=== PATIENT | male | born 1960 | race Caucasian/White ===

== ENCOUNTER 2016-09-13 14:34 | Outpatient (CLI) | payer OTHER ==
[~2016-09-13] VITALS: Ht 167.6 cm; Wt 74.1 kg
[~2016-09-13 14:34] MED LIST: DICY10CA60 PO; HYDR-902 PO; METF-388 PO; METO10TA96 PO; NAPR-260 PO; PANT40TA4 PO; POLY17PO6 PO
[2016-09-13 14:38] VITALS: BP 157/86; PULSE 73; RESP 16; Ht 167.6 cm; Wt 74.1 kg
--- NOTE | 2016-09-13 17:50 | CONS ---
[facility] INITIAL OUTPATIENT CONSULTATION NOTE DATE OF CONSULTATION: 09/13/2016 PLACE OF SERVICE: [facility] at [facility]. ASSESSMENT AND PLAN: A very pleasant, but unfortunate 55-year-old gentleman with comorbidities of diabetes, gastritis, and recent diagnosis of gastric bleeding, which led to the diagnosis of adenocarcinoma of the area of the lesser curvature of the stomach. This is in the setting of possible early cirrhosis. There is also concerning features for presence of metastatic disease in his liver and lung, although there is probably more reason for these being benign in the setting of gastric cancer. I had a long discussion with the patient and family and then had a discussion with Dr. Gonzales, who is the main oncologist for the patient. I do believe that the patient should be treated aggressively. We discussed the merits of doing a diagnostic laparoscopy prior to start of chemotherapy, but as a team, we decided on continuing on with planned FOLFOX treatment followed by restaging and potential for attempt at a subtotal gastrectomy, if the patient proves to have not had metastatic disease and he responds well to the treatment. I explained all the above minus the elimination of prechemotherapy diagnostic laparoscopy with the patient and family and answered all their questions to the best of my ability. I believe that they understand and agree with the plan. With above assessment, I recommend the followin. Continue with planned chemotherapy. 2. Post-chemotherapy staging and follow up with us for consideration for a subtotal gastrectomy, if the patient is still a candidate. Thank you again for allowing us to participate in the care of this very pleasant gentleman and his wonderful family. If there are any questions, please feel free to call me at [phone]. TOTAL VISIT TIME: 60 minutes of which more than half was spent in [id number] discussion with the patient, discussions with his family, as well as coordination of care between multiple physicians and providers. HISTORY OF PRESENT ILLNESS: The patient is a very pleasant 55-year-old gentleman with previous and current comorbidities including diabetes mellitus, previous alcohol abuse with complication of gastrointestinal bleeding and mild thrombocytopenia with platelets in the 180 range, who was recently evaluated and treated for upper gastric bleeding in June 2016. Endoscopy showed several ulcers in the distal stomach. Biopsies have unfortunately come back positive for adenocarcinoma. The patient's workup also included a CT scan of the abdomen and pelvis as well as the chest. There is evidence for small subcentimeter lesions throughout the liver and a few lesions up to 8 mm in both lungs. The etiology of these it is unclear and could be related to the patient' s chronic liver disease, but possibility of metastatic presence of gastric cancer has been entertained. The patient was kindly referred to us for surgical consultation. I had a chance to meet with the patient and family today and did a complete history and physical by myself. I also gathered my information with careful review of the data. The patient himself reports occasional abdominal pain, which is diffuse and band-like, but does not last long. He has not had any further gastrointestinal bleeding since June 2016. He reports no prior known issues with his liver or biliary system. Currently , he drinks occasionally, but in the past, he has had heavy periods of drinking including history of driving under the influence tickets x7 approximately 15 to 20 years ago. FAMILY HISTORY: No major medical history in the family other than throat cancer in his father who was a heavy smoker at that time. PAST MEDICAL HISTORY: 1. Diabetes. 2. Heavy alcohol abuse in the past. 3. Possible cirrhosis. 4. History of upper GI bleeding June 2016. 5. Anemia. 6. Arthritis. 7. Above-mentioned diagnosis of adenocarcinoma of the stomach. PAST SURGICAL HISTORY: Status post upper endoscopy on 06/21/2016 with finding of gastric ulcers that appeared as punched out areas of ulceration near the lesser curvature of the stomach approximately 2 cm in length and 1 cm in diameter. No varicose veins were identified. ALLERGIES: NAPROSYN. AMBULATORY MEDICATIONS: 1. Bentyl. 2. [place]. 3. Metformin. 4. Metoclopramide. 5. ____. 6. Pantoprazole. 7. MiraLax. SOCIAL HISTORY: The patient lives with his family. He has at least 1 daughter. He does not report any smoking and no intravenous drug use. He was a heavy drinker in the past, but has cut down significantly. FAMILY HISTORY: Throat cancer in the father. No other major medical, surgical , or malignant issues reported in the family. PHYSICAL EXAMINATION: GENERAL: The patient appears to be a very pleasant gentleman of descent, appearing stated age, sitting in a chair comfortably, and in no acute distress. BMI is 26.4. VITAL SIGNS: He is afebrile and he has slightly high blood pressure, 157/86, and the rest of his vital signs are normal. ABDOMEN: Shows no tenderness to palpation. Abdomen is soft and nondistended. There is no evidence of caput medusae or engorged subcutaneous veins and no evidence of organomegaly or ascites. No peritoneal signs or guarding. LABORATORY DATA: Dated June 2016: INR 0.91. Creatinine 0.82, albumin 3.8, CO2 of 30, bilirubin 0.3, AST 27, ALT 58, alkaline phosphatase 145. Platelet count 188. IMAGING: A CT scan from 06/29/2016 of the abdomen shows cirrhotic liver with signs of portal hypertension including mild splenomegaly and recanalization of the periumbilical vein. Scattered aortoiliac atherosclerotic calcifications were present. No mass, lymphadenopathy, or acute inflammatory processes was identified. Scattered colonic diverticula were seen without diverticulitis. Note that my personal review of the images suggest punctate areas in the liver that are subcentimeter and difficult to characterize, but concerning in the setting of known gastric malignancy. CT scan of the abdomen and pelvis, 09/12/2016, showed numerous subcentimeter low -density lesions of the liver too small to characterize and no appreciable gastric mass and no evidence of suspicious adenopathy. Chest CT, same date, showed indeterminate bilateral pulmonary nodules measuring up to 8 mm and no lymphadenopathy. My review of these images concur with the reported findings. Pathology report, 06/21/2016, showed adenocarcinoma, diffuse type with moderate chronic gastritis with ulcer, no Helicobacter pylori identified. Dictated By: JILLIAN JONES MD KK/NTS Conf#: [id number] DID#: [id number] CC: BONNY HASTINGS MD; TONEY GONZALES MD; HARVINDER GRAFF MD; Angela Aolnzo NP; Ravi Vazquez; DEIDRE REYNOLDS MD;*EndCC* [facility]
== END 2016-09-13 16:54 | disposition home or self-care (01) ==
LOC: HPC 14:34
PROVIDERS: ATTEND Transplant Surgery
DX: C16.9 Malignant neoplasm of stomach, unspecified (principal); E11.9 Type 2 diabetes mellitus without complications; K76.9 Liver disease, unspecified; Z86.59 Personal history of other mental and behavioral disorders
CPT/HCPCS: G0463

== ENCOUNTER 2017-02-07 08:57 | Outpatient (CLI) | payer OTHER ==
[~2017-02-07] VITALS: Ht 167.6 cm; Wt 68.2 kg
[~2017-02-07 08:57] MED LIST changes: -METF-388 PO; +METF1000 PO
[2017-02-07 09:02] VITALS: BP 180/105; PULSE 92; RESP 18; Ht 167.6 cm; Wt 68.2 kg
--- NOTE | 2017-02-07 12:34 | CONS ---
Date/Time of Note Date/Time of Note DATE: 02/07/17 TIME: 11:14 Assessment/Plan Assessment/Plan Additional Assessment/Plan [facility] SUBSEQUENT OUTPATIENT CONSULTATION NOTE DATE OF CONSULTATION: 02/07/2017 PLACE OF SERVICE: [facility]at[facility] and [facility]creas Center at [facility]. ASSESSMENT AND PLAN: A very pleasant, but unfortunate 56-year-old gentleman with comorbidities of diabetes, gastritis, likely early cirrhosis due to combination of ETOH, possible BILLS and potentially affected by systemic chemotherapy for neoadjuvant treatment of his lesser curvature gastric malignancy that was diagnosed late 2015. Work up (CT C/A/P 01/08/17 and abd MRI ) show no obvious metastatic process. His liver certainly complicates a rather complex clinical picture, since he will likely need total gastrectomy with esophagojejunostomy with pouch. I explained in detail my concerns and recommended completion of the w/u with EUS evaluation of his stomach, as well as MDTB presentation. Answered all questions and patient and his family appeared to understand and agreed with the plans. With above assessment, I recommend the followin. EUS evaluation of the stomach 2. Labs including tumor markers 3. Multidisciplinary tumor board presentation 4. Likely attempt at resection if remains a candidate Thank you again for allowing us to participate in the care of this very pleasant gentleman and his wonderful family. If there are any questions, please feel free to call me at [phone]. 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 Endoscopy showed several ulcers in the distal stomach (Dr. Han, , [facility]). Biopsies unfortunately showed adenocarcinoma (Her2 negative). The patient's workup also included a CT scan of the abdomen and pelvis as well as the chest (small subcentimeter lesions throughout the liver and a few lesions up to 8 mm in both lungs). Unclear etiology. No further gastrointestinal bleeding since June 2016. Drinks occasionally, but in the past, he has had heavy periods of drinking including history of driving under the influence tickets x7 approximately 15 to 20 years ago. S/p C8 FOLFOX 01/03/17 via port. Work up (CT C/A/P 01/08/17 and abd MRI 01/19/17) show no obvious metastatic process. Likely regenerative nodules in the liver reminiscent of cirrhosis. Small nodules in the lungs unchanged. Comorbidities: 1. Diabetes. 2. Heavy alcohol abuse in the past. 3. Possible cirrhosis. 4. History of upper GI bleeding June 2016. 5. Anemia. 6. Arthritis. 7. Above-mentioned diagnosis of adenocarcinoma of the stomach. 8. Status post upper endoscopy on 06/21/2016 with finding of gastric ulcers that appeared as punched out areas of ulceration near the lesser curvature of the stomach approximately 2 cm in length and 1 cm in diameter. No varicose veins were identified. 9. Throat cancer in his father who was a heavy smoker at that time HISTORY OF PRESENT ILLNESS: Repeat visit for follow up regarding gastric cancer management. No new complaints. Some issues with neuropathy, but minor. No sig change in weight. Appetite ok. Understandably anxious. FAMILY HISTORY: No major medical history in the family other than throat cancer in his father who was a heavy smoker at that time. ALLERGIES: NAPROSYN. AMBULATORY MEDICATIONS: Previously on 1. Bentyl. 2. [place]. 3. Metformin. 4. Metoclopramide. 5. Pantoprazole. 6. MiraLax. Please also see EHR SOCIAL HISTORY: The patient lives with his family. He has at least 1 daughter. He does not report any smoking and no intravenous drug use. He was a heavy drinker in the past, but has cut down significantly. FAMILY HISTORY: Throat cancer in the father. No other major medical, surgical , or malignant issues reported in the family. PHYSICAL EXAMINATION: GENERAL: The patient appears to be a very pleasant gentleman of descent, appearing stated age, sitting in a chair comfortably, and in no acute distress. BMI is 24.3 (previously 26.4). VITAL SIGNS: Reviewed. (see EHR) HEENT: Normocephalic and atraumatic. Extraocular muscles and hearing are grossly intact bilaterally and symmetrically. Sclerae are nonicteric. Oral cavity is clear; oral mucosa appeared to be pink and moist. Dentition: fair to poor. NECK: Supple. There is no lymphadenopathy or JVD. There is no submental, submandibular or supraclavicular lymphadenopathy. CHEST: Rises symmetrically with each breath; patient is breathing comfortably. There are no audible wheezes, rales or rhonchi on the gross exam. HEART: Pulse is regular and palpable on the right wrist. Capillary refill was normal. Carotid pulses are palpable bilaterally and symmetrically in the neck. EXTREMITIES: Lower extremities contain no pitting edema around the ankles bilaterally and symmetrically. ABDOMEN: Abdomen is soft, nontender and nondistended. There are no peritoneal signs or guarding. No evidence of ascites, organomegaly, caput medusae, engorged subcutaneous veins, or other abnormalities. SKIN: Appears to be pink and feels warm to touch. NEUROLOGIC: Awake, alert, and follows commands appropriately. LABORATORY DATA: Dated June 2016: INR 0.91. Creatinine 0.82, albumin 3.8, CO2 of 30, bilirubin 0.3, AST 27, ALT 58, alkaline phosphatase 145. Platelet count 188. IMAGING: A CT scan from 06/29/2016 of the abdomen shows cirrhotic liver with signs of portal hypertension including mild splenomegaly and recanalization of the periumbilical vein. Scattered aortoiliac atherosclerotic calcifications were present. No mass, lymphadenopathy, or acute inflammatory processes was identified. Scattered colonic diverticula were seen without diverticulitis. Note that my personal review of the images suggest punctate areas in the liver that are subcentimeter and difficult to characterize, but concerning in the setting of known gastric malignancy. CT scan of the abdomen and pelvis, 09/12/2016, showed numerous subcentimeter low -density lesions of the liver too small to characterize and no appreciable gastric mass and no evidence of suspicious adenopathy. Chest CT, same date, showed indeterminate bilateral pulmonary nodules measuring up to 8 mm and no lymphadenopathy. My review of these images concur with the reported findings. CT C/A/P 01/08/17 and abd MRI 01/19/17 show no obvious metastatic process. Pathology report, 06/21/2016, showed adenocarcinoma, diffuse type with moderate chronic gastritis with ulcer, no Helicobacter pylori identified. Her2 negative ( per oncology report) Consultation Date/Type/Reason Admit Date/Time Initial Consult Date Exam/Review of Systems Vital Signs Vitals Vital Signs Date Time Temp Pulse Resp B/P Pulse Ox O2 Delivery O2 Flow Rate FiO2 02/07/17 09:02 98.4 92 18 180/105 92 Room Air JILLIAN JONES M.D. Feb 07, 2017 11:34
== END 2017-02-07 16:54 | disposition home or self-care (01) ==
LOC: HPC 08:57
PROVIDERS: ATTEND Transplant Surgery
DX: Z08 Encounter for follow-up examination after completed treatment for malignant neoplasm (principal); K29.70 Gastritis, unspecified, without bleeding; E11.9 Type 2 diabetes mellitus without complications; Z79.84 Long term (current) use of oral hypoglycemic drugs; F10.10 Alcohol abuse, uncomplicated; Z85.028 Personal history of other malignant neoplasm of stomach; Z80.8 Family history of malignant neoplasm of other organs or systems
CPT/HCPCS: G0463

== ENCOUNTER 2017-05-02 13:09 | Outpatient (CLI) | payer OTHER ==
[~2017-05-02] VITALS: Ht 167.6 cm; Wt 70.5 kg
[~2017-05-02 13:09] MED LIST changes: -DICY10CA60 PO; -NAPR-260 PO
[2017-05-02 13:15] VITALS: BP 117/71; PULSE 98; RESP 18; Ht 167.6 cm; Wt 70.5 kg
--- NOTE | 2017-05-02 14:09 | CONS ---
Date/Time of Note Date/Time of Note DATE: 05/02/17 TIME: 14:03 Assessment/Plan Assessment/Plan Additional Assessment/Plan [facility] SUBSEQUENT OUTPATIENT CONSULTATION NOTE DATE OF CONSULTATION: 05/02/2017 PLACE OF SERVICE: Hepatobiliary and Pancreas Center at [facility]. ASSESSMENT AND PLAN: Overall stable and seems to have tolerated his neoadjuvant chemotherapy. We had a chance this morning to discuss patient's care in our multidisciplinary tumor board presentation and the consensus of the group was to go on with subtotal gastrectomy. Note that the surgeons and the group all agreed that a total gastrectomy would likely carry significant risk given the patient's liver issues and was not warranted at this time. I had a long discussion with the patient and family and described the reasoning behind my recommendations of a subtotal gastrectomy with review of the operation in detail , risks, benefits, and alternatives and answered all the patient's and family's questions to the best my ability. We specifically reviewed the potential for patient needing long-term surveillance with at least every 6 months to a year endoscopies and further testing since part of his stomach will remain. Overall , I believe that the patient will be able to tolerate this type of an operation and I obtained his consent to proceed. Previous assessment that applies today: A very pleasant, but unfortunate 56-year-old gentleman with comorbidities of diabetes, gastritis, likely early cirrhosis due to combination of ETOH, possible BILLS and potentially affected by systemic chemotherapy for neoadjuvant treatment of his lesser curvature gastric malignancy that was diagnosed late 2015. Work up (CT C/A/P 01/08/17 and abd MRI 01/19/17) show no obvious metastatic process. His liver certainly complicates a rather complex clinical picture, since he will likely need total gastrectomy with esophagojejunostomy with pouch. With above assessment, I recommend the followin. Preoperative history and physical 2. Schedule for laparoscopic, possible open, subtotal gastrectomy Thank you again for allowing us to participate in the care of this very pleasant gentleman and his wonderful family. If there are any questions, please feel free to call me at [phone]. 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 Endoscopy showed several ulcers in the distal stomach (Dr. Han, , [facility]). Biopsies unfortunately showed adenocarcinoma (Her2 negative). The patient's workup also included a CT scan of the abdomen and pelvis as well as the chest (small subcentimeter lesions throughout the liver and a few lesions up to 8 mm in both lungs). Unclear etiology. No further gastrointestinal bleeding since June 2016. Drinks occasionally, but in the past, he has had heavy periods of drinking including history of driving under the influence [email or web address] x7 approximately 15 to 20 years ago. S/p C8 FOLFOX 01/03/17 via port. Work up (CT C/A/P 01/08/17 and abd MRI 01/19/17) show no obvious metastatic process. Likely regenerative nodules in the liver reminiscent of cirrhosis. Small nodules in the lungs unchanged. EUS was performed by Dr. Sultana at [facility] on 02/26/2017 with finding of no residual tumor. Comorbidities: 1. Diabetes. 2. Heavy alcohol abuse in the past. 3. Possible cirrhosis. 4. History of upper GI bleeding June 2016. 5. Anemia. 6. Arthritis. 7. Above-mentioned diagnosis of adenocarcinoma of the stomach. 8. Status post upper endoscopy on 06/21/2016 with finding of gastric ulcers that appeared as punched out areas of ulceration near the lesser curvature of the stomach approximately 2 cm in length and 1 cm in diameter. No varicose veins were identified. 9. Throat cancer in his father who was a heavy smoker at that time 10. EUS was performed by Dr. Sultana at [facility] on 02/26/2017 with finding of no residual tumor. HISTORY OF PRESENT ILLNESS: Repeat visit for follow up regarding gastric cancer management. No new complaints. Some issues with neuropathy in both hands and feet, but minor. No sig change in weight (reported gaining some weight). Appetite ok. Understandably anxious. FAMILY HISTORY: No major medical history in the family other than throat cancer in his father who was a heavy smoker at that time. ALLERGIES: NAPROSYN. AMBULATORY MEDICATIONS: Carefully recorded and reviewed on the electronic health record system. Previously on 1. Bentyl. 2. [place]. 3. Metformin. 4. Metoclopramide. 5. Pantoprazole. 6. MiraLax. Please also see EHR SOCIAL HISTORY: The patient lives with his family. He has at least 1 daughter. He does not report any smoking and no intravenous drug use. He was a heavy drinker in the past, but has cut down significantly. FAMILY HISTORY: Throat cancer in the father. No other major medical, surgical , or malignant issues reported in the family. PHYSICAL EXAMINATION: GENERAL: The patient appears to be a very pleasant gentleman of descent, appearing stated age, sitting in a chair comfortably, and in no acute distress. BMI is 25.1 (previously 26.4 09/19 and 24.3 02/17). VITAL SIGNS: Reviewed. (see EHR) HEENT: Normocephalic and atraumatic. Extraocular muscles and hearing are grossly intact bilaterally and symmetrically. Sclerae are nonicteric. Oral cavity is clear; oral mucosa appeared to be pink and moist. Dentition: fair to poor. NECK: Supple. There is no lymphadenopathy or JVD. There is no submental, submandibular or supraclavicular lymphadenopathy. CHEST: Rises symmetrically with each breath; patient is breathing comfortably. There are no audible wheezes, rales or rhonchi on the gross exam. HEART: Pulse is regular and palpable on the right wrist. Capillary refill was normal. Carotid pulses are palpable bilaterally and symmetrically in the neck. EXTREMITIES: Lower extremities contain no pitting edema around the ankles bilaterally and symmetrically. ABDOMEN: Abdomen is soft, nontender and nondistended. There are no peritoneal signs or guarding. No evidence of ascites, organomegaly, caput medusae, engorged subcutaneous veins, or other abnormalities. SKIN: Appears to be pink and feels warm to touch. NEUROLOGIC: Awake, alert, and follows commands appropriately. LABORATORY DATA: Dated June 2016: INR 0.91. Creatinine 0.82, albumin 3.8, CO2 of 30, bilirubin 0.3, AST 27, ALT 58, alkaline phosphatase 145. Platelet count 188. IMAGING: A CT scan from 06/29/2016 of the abdomen shows cirrhotic liver with signs of portal hypertension including mild splenomegaly and recanalization of the periumbilical vein. Scattered aortoiliac atherosclerotic calcifications were present. No mass, lymphadenopathy, or acute inflammatory processes was identified. Scattered colonic diverticula were seen without diverticulitis. Note that my personal review of the images suggest punctate areas in the liver that are subcentimeter and difficult to characterize, but concerning in the setting of known gastric malignancy. CT scan of the abdomen and pelvis, 09/12/2016, showed numerous subcentimeter low -density lesions of the liver too small to characterize and no appreciable gastric mass and no evidence of suspicious adenopathy. Chest CT, same date, showed indeterminate bilateral pulmonary nodules measuring up to 8 mm and no lymphadenopathy. My review of these images concur with the reported findings. CT C/A/P 01/08/17 and abd MRI 01/19/17 show no obvious metastatic process. Pathology report, 06/21/2016, showed adenocarcinoma, diffuse type with moderate chronic gastritis with ulcer, no Helicobacter pylori identified. Her2 negative ( per oncology report) Consultation Date/Type/Reason Admit Date/Time Exam/Review of Systems Vital Signs Vitals Vital Signs Date Time Temp Pulse Resp B/P Pulse Ox O2 Delivery O2 Flow Rate FiO2 05/02/17 13:15 98.2 98 18 117/71 96 Room Air JILLIAN JONES M.D. May 02, 2017 14:09
== END 2017-05-02 17:00 | disposition home or self-care (01) ==
LOC: HPC 13:09
PROVIDERS: ATTEND Transplant Surgery
DX: C16.9 Malignant neoplasm of stomach, unspecified (principal); E11.9 Type 2 diabetes mellitus without complications; D64.9 Anemia, unspecified
CPT/HCPCS: G0463

== ENCOUNTER 2018-11-23 21:14 | Emergency (ER) | payer MEDICARE, OTHER ==
[~2018-11-23] VITALS: Ht 167.6 cm; Wt 71.5 kg
[~2018-11-23 21:14] MED LIST changes: +HYDR-3980 PO; -HYDR-902 PO; -METF1000 PO; +METF100010 PO; +METO10TA3 PO; -METO10TA96 PO
[2018-11-23 21:55] VITALS: Ht 167.6 cm; Wt 71.5 kg
[2018-11-23] MEDS ORDERED: ONDANSETRON 4 MG INJ IV STA (22:22)
[2018-11-23] MEDS ORDERED: HYDROmorphONE 1 MG/ML SYG IV STA (22:22)
[2018-11-23] MEDS ORDERED: SOD CHLORIDE 0.9% 1,000 ML IV STA (22:22)
--- NOTE | 2018-11-23 22:26 | ERD ---
ER Documentation Chief Complaint Chief Complaint AP 05/13 with conspitation X 8 days, Hx current intestinal CA HPI This is a 58-year-old male who says he has 8 days of constipation with nausea and vomiting if he eats too much over the past couple of weeks. He says he is has chronic abdominal swelling but it does seem to be a bit worse than usual. He says he has a history of intestinal cancer. No melena no gross bloody stools no blood in his vomit no fever ROS All systems reviewed and are negative except as per history of present illness. Medications Home Meds Active Scripts Polyethylene Glycol* (Miralax*) 17 Gm Powd.pack, 17 GM PO DAILY, #7 Prov:GLORY MURPHY DO 06/29/16 Reported Medications Metoclopramide Hcl* (Metoclopramide Hcl*) 10 Mg Tablet, 10 MG PO TID PRN for PRN, TAB 06/29/16 Pantoprazole* (Pantoprazole*) 40 Mg Tablet.dr, 40 MG PO DAILY, TAB 06/29/16 Metformin Hcl* (Metformin Hcl*) 1,000 Mg Tablet, 1000 MG PO WITH BREAKFAST DINNE, #60 TAB 06/29/16 Hydrocodone/Acetaminophen ([place] 10-325 Tablet) 1 Each Tablet, 1 EACH PO Q4 for PAIN PRN, TAB 06/29/16 Allergies Allergies: Coded Allergies: naproxen (Unverified Allergy, Mild, itchy, 06/29/16) PMhx/Soc History of Surgery: No Anesthesia Reaction: No Hx Neurological Disorder: No Hx Respiratory Disorders: No Hx Cardiac Disorders: No Hx Psychiatric Problems: No Hx Miscellaneous Medical Probl: No Hx Alcohol Use: Yes (quit 10 days ago) Hx Substance Use: No Hx Tobacco Use: No FmHx Family History: No coronary disease Physical Exam Vitals Vital Signs Date Temp Pulse Resp B/P (MAP) Pulse Ox O2 O2 Flow FiO2 Time Delivery Rate 11/24/18 82 14 127/86 100 Room Air 01:06 (100) 11/23/18 99.6 114 18 164/111 97 21:55 (128) Physical Exam Const: Well-developed, well-nourished Head: Atraumatic, normocephalic Eyes: Normal Conjunctiva, PERRLA, EOMI, normal sclera, no nystagmus ENT: Normal External Ears, Nose and Mouth, moist mucus membranes. Neck: Full range of motion. No meningismus, no lymphadenopathy. Resp: Clear to auscultation bilaterally, no wheezing, rhonchi, rales Cardio: Regular rate and rhythm, no murmurs, S1 S2 present Abd: Soft, distended with mild diffuse tenderness. Normal bowel sounds, no guarding or rebound, no pulsitile abdominal masses or bruits Skin: No petechiae or rashes, no ecchymosis , no maculopapular rash Back: No midline or flank tenderness Ext: No cyanosis, or edema, FROM x 4, normal inspection, neurovascularly intact x 4 Neur: Awake and alert, STR 5/5 x 4, sensation intact x 4, no focal findings, cerebellum intact Psych: Normal Mood and Affect Result Diagram: 11/23/18225111/23/182250 Results 24 hrs Laboratory Tests Test 11/23/18 22:51 11/23/18 22:52 Sodium Level 144 mmol/L Potassium Level 3.7 mmol/L Chloride Level 105 mmol/L Carbon Dioxide Level 27 mmol/L Anion Gap 12 Blood Urea Nitrogen 13 mg/dl Creatinine 0.69 mg/dl Est Glomerular Filtrat Rate mL/min > 60 mL/min Glucose Level 148 mg/dl Calcium Level 8.8 mg/dl Total Bilirubin 0.4 mg/dl Direct Bilirubin 0.00 mg/dl Indirect Bilirubin 0.4 mg/dl Aspartate Amino Transf (AST/SGOT) 22 IU/L Alanine Aminotransferase (ALT/SGPT) 15 IU/L Alkaline Phosphatase 94 IU/L Total Protein 7.6 g/dl Albumin 3.5 g/dl Globulin 4.10 g/dl Albumin/Globulin Ratio 0.85 Lipase 45 U/L White Blood Count 6.1 10^3/ul Red Blood Count 5.04 10^6/ul Hemoglobin 13.6 g/dl Hematocrit 41.5 % Mean Corpuscular Volume 82.3 fl Mean Corpuscular Hemoglobin 27.0 pg Mean Corpuscular Hemoglobin Concent 32.8 g/dl Red Cell Distribution Width 12.8 % Platelet Count 126 10^3/UL Mean Platelet Volume 9.9 fl Immature Granulocytes % 0.200 % Neutrophils % 65.9 % Lymphocytes % 22.2 % Monocytes % 10.2 % Eosinophils % 1.2 % Basophils % 0.3 % Nucleated Red Blood Cells % 0.0 /100WBC Immature Granulocytes # 0.010 10^3/ul Neutrophils # 4.0 10^3/ul Lymphocytes # 1.4 10^3/ul Monocytes # 0.6 10^3/ul Eosinophils # 0.1 10^3/ul Basophils # 0.0 10^3/ul Nucleated Red Blood Cells # 0.0 10^3/ul Current Medications Medications Dose Sig/Dago Start Time Status Last (Trade) Ordered Route PRN Stop Time Admin Dose Reason Admin Sodium 1,000 ml @ Q1H STAT 11/23/18 DC 11/23/18 Chloride 1,000 mls/hr IV 22:22 23:09 11/23/18 23:21 1 mg ONCE STAT 11/23/18 DC 11/23/18 Hydromorphone IV 22:22 23:09 HCl 11/23/18 22:23 (Dilaudid) Ondansetron 4 mg ONCE STAT 11/23/18 DC 11/23/18 HCl (Zofran IV 22:22 23:09 Inj) 11/23/18 22:23 Heparin 500 unit ONCE ONCE 11/23/18 DC Sodium CATHETER 23:00 (Porcine) 11/23/18 23:01 (Heparin Flush (100 Units/ml)) IV Flush 10 ml STK-MED 11/23/18 DC (NS 10 ml) ONCE .ROUTE 23:22 11/23/18 23:23 Sodium 100 ml @ ud STK-MED 11/23/18 DC Chloride ONCE .ROUTE 23:22 11/23/18 23:23 Iohexol 150 ml STK-MED 11/23/18 DC (Omnipaque ONCE .ROUTE 23:22 300mg/ ml) 11/23/18 23:23 Procedures/MDM Ordering MD: NORBERTO MANUEL DO Location: E/R Room/Bed: PROCEDURE: CT Abdomen and Pelvis with contrast. CLINICAL INDICATION: Abdominal pain. TECHNIQUE: CT scan of the abdomen and pelvis with contrast was performed on a multi-detector high-resolution CT scanner. The patient was scanned following the uncomplicated intravenous administration of 100 cc of Omnipaque 300. Coronal and sagittal reformatted images were obtained from the axial source images. Images were reviewed on a high-resolution PACS workstation. The total exam CTDI equals 14 mGy and the total exam DLP equals 826 mGy-cm. DICOM images are available. 3-D reconstructions were notperformed. One or more of the following dose reduction techniques were utilized: 1.) Automated exposure control 2.) Adjustment of the mA +/- kV according to patient's size 3.) Use of iterative reconstruction technique. COMPARISON: 01/08/2017 FINDINGS: CT abdomen: Heart (where visible): Mildly enlarged. Lung bases: Small left pleural effusion. Small amount of left lower lobe atelectasis.. Liver: Surface nodularity. No visible focal mass. Large volume ascites Biliary ductal system: No evidence of significant dilatation. Gallbladder: No wall thickening, visible intraluminal stone, or pericholecystic inflammatory change. Pancreas: Unremarkable Stomach: No identifiable focal mass or gross wall thickening. Spleen: Splenomegaly. Abdominal colon: Normal in caliber and course. Abdominal small bowel: Normal in caliber, course, and mucosal pattern. Adrenal glands: No visible masses. Right Kidney: Normal in size and contour without focal mass or collecting system dilatation. Left kidney: Normal in size and contour without focal mass or collecting system dilatation. Abdominal aorta: Normal caliber. Lymph nodes: No significantly enlarged nodes. CT pelvis: Pelvic colon: Normal in caliber and course. Mild diverticulosis. No evidence of inflammatory change. Pelvic small bowel: Normal in caliber and course. Appendix: Identified. No evidence of inflammation. Urinary bladder: Normal in size and contour without visible wall thickening. Reproductive structures: Unremarkable. Bony structures included in the scan: No clinically significant abnormalities. IMPRESSION: 1. Hepatic cirrhosis and large volume ascites, both essentially new since the prior study. 2. Chronic splenomegaly. 3. Small left pleural effusion and left lower lobe atelectasis. 4. Otherwise unremarkable CT of the abdomen and pelvis with no evidence of bowel obstruction, bowel perforation, urinary tract stone, urinary tract obstruc tion, or focal inflammatory process. . RPTAT:AAJJ Physician Rod Date Time Electronically viewed and signed by Physician Rod on 11/24/2018 01:25 GW/ CC: NORBERTO MANUEL DO [id number] The patient has new onset ascites. The patient was told that he should come back in the morning to undergo a therapeutic paracentesis. Blood work is relatively stable. Will discharge home with follow-up with his primary for his liver cirrhosis/ascites Departure Diagnosis: Primary Impression: Ascites Ascites type: other type Qualified Codes: R18.8 - Other ascites Additional Impressions: Cirrhosis Hepatic cirrhosis type: unspecified hepatic cirrhosis Ascites presence: with ascites Qualified Codes: K74.60 - Unspecified cirrhosis of liver; R18.8 - Other ascites Constipation Constipation type: unspecified constipation type Qualified Codes: K59.00 - Constipation, unspecified Condition: Stable NORBERTO MANUEL DO Nov 23, 2018 22:26
[2018-11-23] MEDS ORDERED: HEPARIN (100 UNITS/ML) 5 ML SYG CATHETER ONE (23:00)
[2018-11-23] MEDS ORDERED: SOD CHLORIDE 0.9% 100 ML ONE (23:22)
[2018-11-23] MEDS ORDERED: IOHEXOL 300MG/ML 150 ML BTL ONE (23:22)
[2018-11-24] MEDS ORDERED: POLY17PO6 PO (01:49)
[2018-11-24 02:09] VITALS: BP 130/81; PULSE 85; RESP 19
[2018-11-24] MEDS ORDERED: HYDR-4011 PO (02:13)
== END 2018-11-24 02:18 | disposition home or self-care (01) ==
LOC: E/R 21:14
DX: K74.60 Unspecified cirrhosis of liver (principal); R18.8 Other ascites; C00-D49 Neoplasms; Z79.84 Long term (current) use of oral hypoglycemic drugs
CPT/HCPCS: 36415; 74177; 80053; 83690; 85025; 96374; 96375; 99285; J1170; J1642; J2405; J7030; Q9967

== ENCOUNTER 2018-11-24 08:53 | Inpatient (IN) | payer MEDICARE, OTHER ==
[~2018-11-24] VITALS: Ht 167.6 cm; Wt 71.4 kg
[~2018-11-24 08:53] MED LIST changes: +HYDR-4011 PO
--- NOTE | 2018-11-24 10:04 | ERD ---
ER Documentation Chief Complaint Chief Complaint sent here for paracenthesis. unable to do yesterday. mild swelling HPI 58-year-old male history of gastric CA, diabetes mellitus type 2, anemia, alcoholic liver cirrhosis and portal hypertension presents the ED complaining of a several week history of increasing abdominal distention, constipation and nausea with early satiety. Denies hematemesis, hematochezia or melena. No isidoro st pain, palpitations or shortness of breath. No fevers or chills. Patient has been treated with chemotherapy but recently has not been able to obtain follow- up. ROS All systems reviewed and are negative except as per history of present illness. Medications Home Meds Discontinued Reported Medications Metoclopramide Hcl* (Metoclopramide Hcl*) 10 Mg Tablet, 10 MG PO TID PRN for PRN, TAB 06/29/16 Pantoprazole* (Pantoprazole*) 40 Mg Tablet.dr, 40 MG PO DAILY, TAB 06/29/16 Metformin Hcl* (Metformin Hcl*) 1,000 Mg Tablet, 1000 MG PO WITH BREAKFAST DINNE, #60 TAB 06/29/16 Hydrocodone/Acetaminophen ([place] 10-325 Tablet) 1 Each Tablet, 1 EACH PO Q4 for PAIN PRN, TAB 06/29/16 Discontinued Scripts Hydrocodone/Acetaminophen ([place] 5-325 Tablet) 1 Each Tablet, 1 TAB PO Q6H PRN for PAIN, #15 TAB Prov:LEKKOS,APOSTOLOS A. DO 11/24/18 Polyethylene Glycol* (Miralax*) 17 Gm Powd.pack, 17 GM PO DAILY, #7 Prov:LEKKOS,APOSTOLOS A. DO 11/24/18 Polyethylene Glycol* (Miralax*) 17 Gm Powd.pack, 17 GM PO DAILY, #7 Prov:GLORY MURPHY DO 06/29/16 Allergies Allergies: Coded Allergies: naproxen (Unverified Allergy, Mild, itchy, 11/24/18) PMhx/Soc Reviewed in chart. As per HPI. History of Surgery: No Anesthesia Reaction: No Hx Neurological Disorder: No Hx Respiratory Disorders: No Hx Cardiac Disorders: No Hx Psychiatric Problems: No Hx Miscellaneous Medical Probl: Yes (DM, STOMACH CA ) Hx Alcohol Use: Yes Hx Substance Use: No Hx Tobacco Use: No Smoking Status: Never smoker FmHx No family history relevant to presenting complaint Physical Exam Vitals Vital Signs Date Temp Pulse Resp B/P (MAP) Pulse Ox O2 O2 Flow FiO2 Time Delivery Rate 11/24/18 98.4 112 18 150/84 98 08:59 (106) Physical Exam Const: Alert, mild distress. Head: Atraumatic Eyes: Normal Conjunctiva. Anicteric. ENT: Normal External Ears, Nose and Mouth. Neck: Full range of motion. No JVD. Resp: Decreased breath sounds at the bases left greater than right but no rales, rhonchi or wheezes. Cardio: Regular rate and rhythm, no murmurs Abd: Soft, distended, positive fluid wave, non tender, no rebound or guarding. Normal bowel sounds Skin: No petechiae or rashes Back: No midline or flank tenderness Ext: No cyanosis, or edema Neur: Awake and alert. No focal deficit. Psych: Normal Mood and Affect Result Diagram: 11/27/1842311/27/18423 Procedures/MDM DOCUMENTS REVIEWED: ED nurse, prior records IMAGING: PROCEDURE: CT Abdomen and Pelvis with contrast. CLINICAL INDICATION: Abdominal pain. TECHNIQUE: CT scan of the abdomen and pelvis with contrast was performed on a multi-detector high-resolution CT scanner. The patient was scanned following the uncomplicated intravenous administration of 100 cc of Omnipaque 300. Coronal and sagittal reformatted images were obtained from the axial source images. Images were reviewed on a high-resolution PACS workstation. The total exam CTDI equals 14 mGy and the total exam DLP equals 826 mGy-cm. DICOM images are available. 3-D reconstructions were notperformed. One or more of the following dose reduction techniques were utilized: 1.) Automated exposure control 2.) Adjustment of the mA +/- kV according to patient's size 3.) Use of iterative reconstruction technique. COMPARISON: 01/08/2017 FINDINGS: CT abdomen: Heart (where visible): Mildly enlarged. Lung bases: Small left pleural effusion. Small amount of left lower lobe atelectasis.. Liver: Surface nodularity. No visible focal mass. Large volume ascites Biliary ductal system: No evidence of significant dilatation. Gallbladder: No wall thickening, visible intraluminal stone, or pericholecystic inflammatory change. Pancreas: Unremarkable Stomach: No identifiable focal mass or gross wall thickening. Spleen: Splenomegaly. Abdominal colon: Normal in caliber and course. Abdominal small bowel: Normal in caliber, course, and mucosal pattern. Adrenal glands: No visible masses. Right Kidney: Normal in size and contour without focal mass or collecting system dilatation. Left kidney: Normal in size and contour without focal mass or collecting system dilatation. Abdominal aorta: Normal caliber. Lymph nodes: No significantly enlarged nodes. CT pelvis: Pelvic colon: Normal in caliber and course. Mild diverticulosis. No evidence of inflammatory change. Pelvic small bowel: Normal in caliber and course. Appendix: Identified. No evidence of inflammation. Urinary bladder: Normal in size and contour without visible wall thickening. Reproductive structures: Unremarkable. Bony structures included in the scan: No clinically significant abnormalities. IMPRESSION: 1. Hepatic cirrhosis and large volume ascites, both essentially new since the prior study. 2. Chronic splenomegaly. 3. Small left pleural effusion and left lower lobe atelectasis. 4. Otherwise unremarkable CT of the abdomen and pelvis with no evidence of melody l obstruction, bowel perforation, urinary tract stone, urinary tract obstruction, or focal inflammatory process. . RPTAT:AAJJ Physician Rod Date Time Electronically viewed and signed by Physician Rod on 11/24/2018 01:25 [employer]-year-old male history of gastric CA, diabetes m ellitus type 2, anemia, alcoholic liver cirrhosis and portal hypertension presents the ED complaining of a several week history of increasing abdominal distention, constipation and nausea with early satiety. Patient was seen in the ED earlier this morning borderline and now returns for paracentesis. Labs reviewed. CBC revealed mild anemia but no leukocytosis or thrombocytopenia. Chemistry was unremarkable for renal insufficiency or electrolyte abnormalities. Liver function tests were grossly normal. INR was normal. CT findings as above consistent with new onset ascites and liver cirrhosis but no other acute abnormalities. Ultrasound paracentesis is ordered. Patient with a history of gastric adenocarcinoma now presents with new onset ascites possibly secondary to cirrhosis although malignant ascites and SBP are also considered. Patient will require admission for GI consultation, further evaluation and management. Admit to med/surg. PATIENT CARE TRANSITIONED: Time: 10:53, Dr. Beth Pool. Counseled patient and family regarding diagnosis, diagnostic results and plan for admission. Departure Diagnosis: Primary Impression: Ascites Ascites type: other type Qualified Codes: R18.8 - Other ascites Additional Impressions: History of gastric cancer Liver cirrhosis Hepatic cirrhosis type: unspecified hepatic cirrhosis Ascites presence: unspecified Qualified Codes: K74.60 - Unspecified cirrhosis of liver Condition: Serious GERTRUDIS RENEE MD Nov 24, 2018 10:04
--- NOTE | 2018-11-24 12:59 | HP ---
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 1. Large volume ascites. -Etiology could be secondary to underlying hepatic cirrhosis. -No prior history of paracentesis. -Ultrasound-guided paracentesis will be ordered. 2. Constipation. -Start a bowel regimen. 3. Diabetes mellitus type 2. -Start the patient on sliding scale insulin. -Hemoglobin A1c 7.1. 4. Normocytic anemia. -Most probably anemia chronic disease. -Monitor H&H closely. 5. Thrombocytopenia. -Most probably secondary to underlying liver cirrhosis. -Monitor. 6. History of adenocarcinoma of the stomach. -Status post chemotherapy. -Follows up with Dr. Barbosa as outpatient. Plan: The patient will be admitted to inpatient medical surgical floor. The patient will be kept n.p.o. until paracentesis. The patient will be started on DVT prophylaxis ((SCDs). The patient will remain a full code. Activities will be as tolerated. The rest of the patient's management will be based on the clinical course and the results of diagnostic studies. Based on the patient's clinical presentation, he most probably requires at least 1 midnight's stay for further management and evaluation of his clinical presentation. The patient was seen in collaboration with Dr. Pool. 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 Barbosa. The patient came to the emergency room on 11/23/2018 because of abdominal distention, abdominal pain, and constipation. The patient underwent a CT scan of the abdomen and pelvis that showed hepatic cirrhosis and a large volume ascites with a small left pleural effusion and left lower lobe atelectasis. The patient was discharged home, to be followed up with outpatient paper pattern inspector. However, the patient came back to the emergency room on 11/24/2018 with similar complaints. Therefore, the patient will be admitted to inpatient setting. The patient denied any fevers or chills. The patient was complaining of poor oral intake and associated nausea and nonbilious vomiting. The patient verbalized that he had completed his chemotherapy for adenocarcinoma. There was no surgical interventions done for his adenocarcinoma. The patient currently takes analgesics for his abdominal pain. In the emergency room, the patient is vital signs were stable. The patient was afebrile. The patient's CBC was showing anemia and thrombocytopenia. The patient's LFTs were within normal limits. Ultrasound-guided paracentesis was ordered by the ER physician. ROS Constitutional: poor po Eyes: no complaints ENT: no complaints Respiratory: no complaints Cardiovascular: no complaints Gastrointestinal: pain, constipation, decreased appetite, nausea, vomiting Genitourinary: dysuria Musculoskeletal: no complaints Skin: no complaints Neurologic: no complaints Endocrine: no complaints Lymphatic: no complaints Psychological: no complaints Immunologic: no complaints PMH/Family/Social Past Medical History 1. Diabetes mellitus type 2. 2. Anemia. 3. Liver cirrhosis. 4. 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 Coded Allergies: naproxen (Unverified Allergy, Mild, itchy, 11/24/18) Past Surgical History Right chest wall Port-A-Cath placement. Social History The patient lives at home with his family. Alcohol Use: sober Smoking Status: Never smoker Drug Use: none Exam/Review of Systems Vital Signs Vitals Vital Signs Date Temp Pulse Resp B/P (MAP) Pulse Ox O2 O2 Flow FiO2 Time Delivery Rate 11/24/18 98.4 112 18 150/84 98 08:59 (106) Exam Exam General: Adequately build 58 year-old male lying in bed in no apparent distress. HEENT: Normocephalic, atraumatic. Eyes: Anicteric sclerae, conjunctivae clear. ENT: Nasal septum midline, oral mucosa moist. Neck supple, JVD noticed. Respiratory: Bilaterally clear breath sounds. No use of accessory muscles of respiration. No adventitious breath sounds. Cardiovascular: S1, S2 heard. Regular rate and rhythm. Abdomen: Distended and nontender. Genitourinary: Deferred. Extremities: No cyanosis, no clubbing, no edema. Peripheral pulses palpable. Neurologic: Cranial nerves II through XII grossly intact. The patient is awake, alert, and oriented. Skin: Normal skin turgor. No skin rashes. Additional Comments CT Abdomen & Pelvis from 11/23/2018 IMPRESSION: 1. Hepatic cirrhosis and large volume ascites, both essentially new since the prior study. 2. Chronic splenomegaly. 3. Small left pleural effusion and left lower lobe atelectasis. 4. Otherwise unremarkable CT of the abdomen and pelvis with no evidence of bowel obstruction, bowel perforation, urinary tract stone, urinary tract obstruction, or focal inflammatory proc BRAYAN GUERRERO NP Nov 24, 2018 12:59
[2018-11-24] MEDS ORDERED: hydrALAzine 20 MG INJ IV PRN (13:30)
[2018-11-24] MEDS ORDERED: DEXTROSE 50% 50 ML SYRINGE IV PRN ×2 (13:30)
[2018-11-24] MEDS ORDERED: NACL 0.9% 3 ML SYG IV SCH (13:30)
[2018-11-24] MEDS ORDERED: GLUCOSE GEL 15 GRAM TUBE BUCCAL PRN (13:30)
[2018-11-24] MEDS ORDERED: GLUCOSE GEL 15 GRAM TUBE PO PRN ×2 (13:30)
[2018-11-24] MEDS ORDERED: ONDANSETRON 4 MG INJ IV PRN (13:30)
[2018-11-24] MEDS ORDERED: ACETAMINOPHEN 325 MG TAB PO PRN (13:30)
[2018-11-24] MEDS ORDERED: GLUCAGON 1 MG INJ IM PRN (13:30)
[2018-11-24 14:12] VITALS: BP 148/97; PULSE 86; RESP 16
[2018-11-24 14:15] VITALS: Ht 167.6 cm; Wt 71.4 kg
[2018-11-24] MEDS: HYDROCODONE/APAP (5/325) TAB PO PRN (14:25)
[2018-11-24] MEDS ORDERED: LIDOCAINE 1% (MPF) 5 ML VIAL ONE (17:25)
[2018-11-24] MEDS: INSULIN ASPART [NOVOLOG] 3 ML PEN SC SCH ×2 (17:55→21:00)
[2018-11-24] MEDS: METOCLOPRAMIDE 10 MG INJ IV SCH ×2 (18:17→23:33)
[2018-11-24 20:11] VITALS: BP 123/77; PULSE 87; RESP 18
[2018-11-24] MEDS: LACTULOSE 30ML CUP PO SCH (21:12)
[2018-11-24] MEDS: POLYETHYLENE GLYCOL 17 GM PACKET PO SCH (21:12)
[2018-11-25 01:44] VITALS: BP 130/78; PULSE 88; RESP 18
[2018-11-25] MEDS: LACTULOSE 30ML CUP PO SCH ×3 (05:41→22:25)
[2018-11-25] MEDS: METOCLOPRAMIDE 10 MG INJ IV SCH ×4 (05:41→23:53)
[2018-11-25 07:34] VITALS: BP 121/78; PULSE 92; RESP 19
[2018-11-25] MEDS: INSULIN ASPART [NOVOLOG] 3 ML PEN SC SCH ×4 (08:50→20:50)
[2018-11-25] MEDS: POLYETHYLENE GLYCOL 17 GM PACKET PO SCH ×2 (08:51→20:51)
[2018-11-25] MEDS: HYDROCODONE/APAP (5/325) TAB PO PRN (11:10)
--- NOTE | 2018-11-25 13:44 | PN ---
Date/Time of Note Date/Time of Note DATE: 11/25/18 TIME: 13:38 Assessment/Plan VTE Prophylaxis Risk score (from [facility] [place])>0 risk: 3 SCD applied (from [facility] [place]): Yes SCD contraindicated: low risk/ambulating Pharmacological prophylaxis: NA/contraindicated Pharm contraindication: blood coag disorder Lines/Catheters IV Catheter Type (from [facility] Saline Lock Urinary Cath still in place: No Assessment/Plan Hospital Course Assessment and plan 1. Decompensated cirrhosis, mod stable, follow-up with GI 2. Ascites sp paracentesis. Follow-up with culture/ cytology, start beta- saurav on discharge 3. Past alcoholism 4. Anemia 5. History of upper GI bleed/ ulcers. Dr Hna 6. Diabetes 7. Metabolic syndrome 8. Constipation 9. 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 Dr Barbosa 10. Pulmonary/hepatic nodules subcentimeter, Unclear etiology. 11. Possible [place] 12. Chronic liver disease [place]: Portal hypertension/thrombocytopenia Subjective: Events noted; no fever Objective: Vital signs stable no fever Physical exam No pallor icterus adenopathy Regular no m/r/g Clear Bs diminished, nt, mild distended no r/r/g edema Result Diagram: 11/25/18 0426 11/25/18 0426 Results 24hrs Laboratory Tests Test 11/24/18 16:30 11/24/18 18:13 11/24/18 21:05 11/24/18 21:11 Body Fluid Type PARACENTHESIS Body Fluid Volume 1000.0 Body Fluid Color YELLOW Body Fluid HAZY Appearance Body Fluid WBC 813 Body Fluid RBC 1000 (Auto) Body Fluid 3.3 Polynuclear WBCs (%) Body Fluid 96.7 Mononuclear Cells % Auto Body Fluid Glucose 112 Body Fluid Total 4.4 Protein Total Protein Albumin Bedside Glucose 105 132 Urine Color BUNNY Urine Clarity TURBID A Urine pH 5.0 Urine Specific 1.038 H [place] Urine Ketones 1+ H Urine Nitrite NEGATIVE Urine Bilirubin NEGATIVE Urine Urobilinogen 1+ H Urine Leukocyte NEGATIVE Esterase Urine Microscopic 0 RBC Urine Microscopic 4 WBC Urine Amorphous MANY A Crystals Urine Mucus FEW A Urine Hemoglobin NEGATIVE Urine Glucose NEGATIVE Urine Total NEGATIVE Protein Test 11/25/18 04:26 11/25/18 08:50 11/25/18 12:08 White Blood Count 5.3 Red Blood Count 4.78 Hemoglobin 13.0 L Hematocrit 39.8 L Mean Corpuscular 83.3 Volume Mean Corpuscular 27.2 L Hemoglobin Mean Corpuscular 32.7 Hemoglobin Concent Red Cell 12.5 Distribution Width Platelet Count 104 L Mean Platelet 10.6 H Volume Immature 0.200 Granulocytes % Neutrophils % 67.5 Lymphocytes % 21.1 Monocytes % 9.7 Eosinophils % 1.3 Basophils % 0.2 Nucleated Red 0.0 Blood Cells % Immature 0.010 Granulocytes # Neutrophils # 3.6 Lymphocytes # 1.1 Monocytes # 0.5 Eosinophils # 0.1 Basophils # 0.0 Nucleated Red 0.0 Blood Cells # Prothrombin Time 14.9 Prothrombin Time 1.2 Ratio INR International 1.16 Normalized Ratio Activated 31.[address] Time Sodium Level 144 Potassium Level 4.1 Chloride Level 105 Carbon Dioxide 29 Level Anion Gap 10 Blood Urea 12 Nitrogen Creatinine 0.66 Est Glomerular > 60 Filtrat Rate mL/min Glucose Level 109 Calcium Level 8.4 Phosphorus Level 3.8 Magnesium Level 2.1 Total Bilirubin 0.5 Direct Bilirubin 0.00 Indirect Bilirubin 0.5 Aspartate Amino 20 Transf (AST/SGOT) Alanine 16 Aminotransferase ( ALT/SGPT) Alkaline 72 Phosphatase Ammonia < 9 L Total Protein 6.6 Albumin 3.0 L Globulin 3.60 H Albumin/Globulin 0.83 Ratio Triglycerides 97 Level Cholesterol Level 105 LDL Cholesterol, 64 Calculated HDL Cholesterol 22 L Cholesterol/HDL 4.7 Ratio Bedside Glucose 116 140 Exam/Review of Systems Exam Vitals Vital Signs Date Temp Pulse Resp B/P (MAP) Pulse Ox O2 O2 Flow FiO2 Time Delivery Rate 11/25/18 97.2 92 19 121/78 96 07:34 (92) 11/24/18 Room Air 14:16 Intake and Output 11/24/18 11/24/18 11/25/18 1515:00 23:00 07:00 IntakeIntake Total 300 ml OutputOutput Total 1 ml BalanceBalance 299 ml Results Results 24hrs Laboratory Tests Test 11/24/18 16:30 11/24/18 18:13 11/24/18 21:05 11/24/18 21:11 Body Fluid Type PARACENTHESIS Body Fluid Volume 1000.0 Body Fluid Color YELLOW Body Fluid HAZY Appearance Body Fluid WBC 813 Body Fluid RBC 1000 (Auto) Body Fluid 3.3 Polynuclear WBCs (%) Body Fluid 96.7 Mononuclear Cells % Auto Body Fluid Glucose 112 Body Fluid Total 4.4 Protein Total Protein Albumin Bedside Glucose 105 132 Urine Color BUNNY Urine Clarity TURBID A Urine pH 5.0 Urine Specific 1.038 H [place] Urine Ketones 1+ H Urine Nitrite NEGATIVE Urine Bilirubin NEGATIVE Urine Urobilinogen 1+ H Urine Leukocyte NEGATIVE Esterase Urine Microscopic 0 RBC Urine Microscopic 4 WBC Urine Amorphous MANY A Crystals Urine Mucus FEW A Urine Hemoglobin NEGATIVE Urine Glucose NEGATIVE Urine Total NEGATIVE Protein Test 11/25/18 04:26 11/25/18 08:50 11/25/18 12:08 White Blood Count 5.3 Red Blood Count 4.78 Hemoglobin 13.0 L Hematocrit 39.8 L Mean Corpuscular 83.3 Volume Mean Corpuscular 27.2 L Hemoglobin Mean Corpuscular 32.7 Hemoglobin Concent Red Cell 12.5 Distribution Width Platelet Count 104 L Mean Platelet 10.6 H Volume Immature 0.200 Granulocytes % Neutrophils % 67.5 Lymphocytes % 21.1 Monocytes % 9.7 Eosinophils % 1.3 Basophils % 0.2 Nucleated Red 0.0 Blood Cells % Immature 0.010 Granulocytes # Neutrophils # 3.6 Lymphocytes # 1.1 Monocytes # 0.5 Eosinophils # 0.1 Basophils # 0.0 Nucleated Red 0.0 Blood Cells # Prothrombin Time 14.9 Prothrombin Time 1.2 Ratio INR International 1.16 Normalized Ratio Activated 31.[address] Time Sodium Level 144 Potassium Level 4.1 Chloride Level 105 Carbon Dioxide 29 Level Anion Gap 10 Blood Urea 12 Nitrogen Creatinine 0.66 Est Glomerular > 60 Filtrat Rate mL/min Glucose Level 109 Calcium Level 8.4 Phosphorus Level 3.8 Magnesium Level 2.1 Total Bilirubin 0.5 Direct Bilirubin 0.00 Indirect Bilirubin 0.5 Aspartate Amino 20 Transf (AST/SGOT) Alanine 16 Aminotransferase ( ALT/SGPT) Alkaline 72 Phosphatase Ammonia < 9 L Total Protein 6.6 Albumin 3.0 L Globulin 3.60 H Albumin/Globulin 0.83 Ratio Triglycerides 97 Level Cholesterol Level 105 LDL Cholesterol, 64 Calculated HDL Cholesterol 22 L Cholesterol/HDL 4.7 Ratio Bedside Glucose 116 140 Medications Medication Current Medications Polyethylene Glycol (Miralax) 17 gm BID PO Last administered on 11/25/18at 08:51; Admin Dose 17 GM; Start 11/24/18 at 21:00 IV Flush (NS 3 ml) 3 ml PER PROTOCOL IV ; Start 11/24/18 at 13:30 Ondansetron HCl (Zofran Inj) 4 mg Q6H PRN IV NAUSEA/VOMITING; Start 11/24/18 at 13:30 Acetaminophen/ Hydrocodone Bitart ([place] (5/325)) 1 tab Q6H PRN PO .MOD PAIN 4- 6 Last administered on 11/25/18at 11:10; Admin Dose 1 TAB; Start 11/24/18 at 13:30 Hydralazine HCl (Apresoline) 10 mg Q6H PRN IV SBP>160; Start 11/24/18 at 13:30 Insulin Aspart (Novolog Insulin Pen) NOVOLOG *MILD* ALGORITHM WITH MEALS BEDTIME SC ; Start 11/24/18 at 17:55 Metoclopramide HCl (Reglan) 5 mg Q6 IV Last administered on 11/25/18at 05:41; Admin Dose 5 MG; Start 11/24/18 at 18:00 Miscellaneous Information 1 ea NOTE XX ; Start 11/24/18 at 13:30 Glucose (Glutose) 15 gm Q15M PRN PO DECREASED GLUCOSE; Start 11/24/18 at 13:30 Glucose (Glutose) 22.5 gm Q15M PRN PO DECREASED GLUCOSE; Start 11/24/18 at 13:30 Dextrose (D50w Syringe) 25 ml Q15M PRN IV DECREASED GLUCOSE; Start 11/24/18 at 13:30 Dextrose (D50w Syringe) 50 ml Q15M PRN IV DECREASED GLUCOSE; Start 11/24/18 at 13:30 Glucagon (Glucagen) 1 mg Q15M PRN IM DECREASED GLUCOSE; Start 11/24/18 at 13:30 Glucose (Glutose) 15 gm Q15M PRN BUCCAL DECREASED GLUCOSE; Start 11/24/18 at 13:30 Lactulose (Enulose) 20 gm Q8 PO Last administered on 11/25/18at 13:05; Admin Dose 20 GM; Start 11/24/18 at 22:00 JANIE CARNEY MD Nov 25, 2018 13:44
[2018-11-25] MEDS: ONDANSETRON 4 MG INJ IV PRN (14:03)
[2018-11-25] MEDS: CEFTRIAXONE 1 GM/50 ML (PMX) 50 ML IVPB SCH (14:15)
[2018-11-25 15:30] VITALS: BP 128/68; PULSE 82; RESP 18
[2018-11-25] MEDS: NADOLOL 40 MG TAB PO SCH (16:50)
[2018-11-25] MEDS: HYDROCODONE/APAP (10/325) TAB PO PRN ×2 (17:51→23:57)
--- NOTE | 2018-11-25 18:05 | CONS ---
DATE OF ADMISSION: 11/24/2018 DATE OF CONSULTATION: TYPE OF CONSULTATION: Gastroenterology. From Deidre Han MD, to Jake Carney MD Dear Dr. Joseph: Thank you for asking me to evaluate your patient who is a pleasant 58-year-old male with cirrhosis of liver, type 2 diabetes mellitus, was admitted to the hospital for nausea and vomiting for the last f ew days and also for constipation. He also complains of abdominal distention. No fever, no chills, no abdominal pain, no GI bleeding, no or DREDGE DECKHAND problem. The patient had abdominal paracentesis done and he feels comfortable. I reviewed the fluid and it had 800 WBC, waiting for the differential. PAST MEDICAL HISTORY: Cirrhosis, diabetes mellitus and adenocarcinoma of the stomach, for which he h ad chemotherapy. REVIEW OF SYSTEMS: Otherwise negative. ALLERGIES: ALLERGIC TO NAPROXEN. PAST SURGICAL HISTORY: Right chest wall Port-A-Cath. SOCIAL HISTORY: Lives at home with his family. Sober for the last 4 years. Does not smoke. PHYSICAL EXAMINATION: GENERAL: Well-built, nourished, not in distress. VITAL SIGNS: Stable. HEENT: Unremarkable. NECK: Supple. No thyromegaly, no lymphadenopathy. CARDIOVASCULAR: No murmur, gallop or click. LUNGS: Clear. ABDOMEN: Benign. There is very minimal ascites now. EXTREMITIES: No edema. CENTRAL NERVOUS SYSTEM: Grossly within normal limits. LABORATORY DATA: The patient's CBC: WBC is 5.3, hematocrit is 40, which is stable, platelet count i s 109. INR is within normal limits. LFTs were grossly within normal limits. BUN and creatinine all within normal limits. IMPRESSION: 1. Cirrhosis of liver. 2. Portal hypertension. 3. Ascites. 4. Diabetes mellitus. 5. Constipation. 6. Carcinoma of the stomach being treated with chemotherapy. PLAN: Continue nonselective beta-saurav. The patient has been on nadolol. He is already on ceftri axone. Continue lactulose. The patient is on Reglan, prokinetic agent, for possible diabetic gastro paresis. Continue present care. The patient may need EGD to evaluate his gastric cancer. Also, he should be on diuretics for portal hypertension and ascites. Dictated By: DEIDRE TERRY/AMBER Conf#: [id number] DID#: [id number] CC: ISRAEL WOLFF MD; JAKE CARNEY MD;*[facility]*
[2018-11-25] MEDS: SPIRONOLACTONE 50 MG TAB PO SCH (19:52)
[2018-11-25 20:11] VITALS: BP 125/77; PULSE 89; RESP 18
[2018-11-25] MEDS: FAMOTIDINE 20 MG TAB PO SCH (20:51)
[2018-11-25] MEDS: LACTOBACILLUS RHAMNOSUS CAP PO SCH (20:51)
[2018-11-26] VITALS (21 sets, daily range): BP systolic 97–132; BP diastolic 64–82; PULSE 63–79; RESP 11–19
[2018-11-26] MEDS: METOCLOPRAMIDE 10 MG INJ IV SCH ×4 (05:50→23:28)
[2018-11-26] MEDS: SPIRONOLACTONE 50 MG TAB PO SCH ×2 (05:52→19:01)
[2018-11-26] MEDS: LACTULOSE 30ML CUP PO SCH ×3 (05:52→20:45)
[2018-11-26] MEDS: ALBUMIN HUMAN 25% 100 ML IV SCH ×3 (06:52→22:42)
--- NOTE | 2018-11-26 08:26 | CONS ---
Assessment/Plan Assessment/Plan Hospital Course (Demo Recall) 58 yo male with gastric cancer on chemo presents for abdominal distention, nausea and constipation Interval hx: pt is US right now. Mostly c/o generalized pain in abdomen. 1. Cirrhosis of liver. 2. Portal hypertension. 3. Ascites. 4. Diabetes mellitus. 5. Constipation. 6. Carcinoma of the stomach . PLAN: He is on add on list for EGD today. NPO except meds Continue nonselective beta-saurav, abx, lactulose and reglan, lasix. Pt examined and plan of care discussed with Dr. Han Consultation Date/Type/Reason Admit Date/Time Nov 24, 2018 at 13:13 Initial Consult Date Date/Time of Note DATE: 11/26/18 TIME: 08:24 Exam/Review of Systems Exam Vitals Vital Signs Date Temp Pulse Resp B/P (MAP) Pulse Ox O2 O2 Flow FiO2 Time Delivery Rate 11/26/18 98.2 72 19 125/76 98 07:33 (92) 11/24/18 Room Air 14:16 Intake and Output 11/25/18 11/25/18 11/26/18 1414:59 22:59 06:59 IntakeIntake Total 250 ml 220 ml OutputOutput Total 0 ml BalanceBalance 250 ml 220 ml Results Result Diagram: 11/26/18 0430 11/26/18 0430 Results 24hrs Laboratory Tests Test 11/25/18 08:50 11/25/18 12:08 11/25/18 17:53 11/25/18 20:50 Bedside Glucose 116 140 138 165 Test 11/26/18 04:30 White Blood Count 5.6 Red Blood Count 4.87 Hemoglobin 13.0 L Hematocrit 40.3 L Mean Corpuscular 82.8 Volume Mean Corpuscular 26.7 L Hemoglobin Mean Corpuscular 32.3 Hemoglobin Concent Red Cell 12.5 Distribution Width Platelet Count 112 L Mean Platelet Volume 10.7 H Immature 0.400 Granulocytes % Neutrophils % 60.2 Lymphocytes % 25.7 Monocytes % 11.7 H Eosinophils % 1.6 Basophils % 0.4 Nucleated Red Blood 0.0 Cells % Immature 0.020 Granulocytes # Neutrophils # 3.4 Lymphocytes # 1.4 Monocytes # 0.7 Eosinophils # 0.1 Basophils # 0.0 Nucleated Red Blood 0.0 Cells # Prothrombin Time 14.4 Prothrombin Time 1.1 Ratio INR International 1.11 Normalized Ratio Sodium Level 144 Potassium Level 3.9 Chloride Level 105 Carbon Dioxide Level 29 Anion Gap 10 Blood Urea Nitrogen 13 Creatinine 0.71 Est Glomerular > 60 Filtrat Rate mL/min Glucose Level 132 Hemoglobin A1c 6.8 H Calcium Level 8.5 Magnesium Level 2.1 Total Bilirubin 0.3 Direct Bilirubin 0.00 Indirect Bilirubin 0.3 Aspartate Amino 20 Transf (AST/SGOT) Alanine 17 Aminotransferase (AL T/SGPT) Alkaline Phosphatase 82 Total Protein 6.5 Albumin 3.0 L Globulin 3.50 H Albumin/Globulin 0.85 Ratio Thyroid Stimulating 1.950 Hormone (TSH) Medications Medication Current Medications Polyethylene Glycol (Miralax) 17 gm BID PO Last administered on 11/25/18at 20:51; Admin Dose 17 GM; Start 11/24/18 at 21:00 IV Flush (NS 3 ml) 3 ml PER PROTOCOL IV ; Start 11/24/18 at 13:30 Ondansetron HCl (Zofran Inj) 4 mg Q6H PRN IV NAUSEA/VOMITING Last administered on 11/25/18at 14:03; Admin Dose 4 MG; Start 11/24/18 at 13:30 Hydralazine HCl (Apresoline) 10 mg Q6H PRN IV SBP>160; Start 11/24/18 at 13:30 Insulin Aspart (Novolog Insulin Pen) NOVOLOG *MILD* ALGORITHM WITH MEALS BEDTIME SC ; Start 11/24/18 at 17:55 Metoclopramide HCl (Reglan) 5 mg Q6 IV Last administered on 11/26/18at 05:50; Admin Dose 5 MG; Start 11/24/18 at 18:00 Miscellaneous Information 1 ea NOTE XX ; Start 11/24/18 at 13:30 Glucose (Glutose) 15 gm Q15M PRN PO DECREASED GLUCOSE; Start 11/24/18 at 13:30 Glucose (Glutose) 22.5 gm Q15M PRN PO DECREASED GLUCOSE; Start 11/24/18 at 13:30 Dextrose (D50w Syringe) 25 ml Q15M PRN IV DECREASED GLUCOSE; Start 11/24/18 at 13:30 Dextrose (D50w Syringe) 50 ml Q15M PRN IV DECREASED GLUCOSE; Start 11/24/18 at 13:30 Glucagon (Glucagen) 1 mg Q15M PRN IM DECREASED GLUCOSE; Start 11/24/18 at 13:30 Glucose (Glutose) 15 gm Q15M PRN BUCCAL DECREASED GLUCOSE; Start 11/24/18 at 13:30 Lactulose (Enulose) 20 gm Q8 PO Last administered on 11/26/18 05:52; Admin Dose 20 GM; Start 11/24/18 at 22:00 Nadolol (Corgard) 20 mg DAILY PO Last administered on 11/25/18 16:50; Admin Dose 20 MG; Start 11/25/18 at 14:30 Lactobacillus Acidophilus/ Rhamnosus (Culturelle) 1 cap BID PO Last admi nistered on 11/25/18 20:51; Admin Dose 1 CAP; Start 11/25/18 at 21:00 Famotidine (Pepcid) 20 mg HS PO Last administered on 11/25/18 20:51; Admin Dose 20 MG; Start 11/25/18 at 21:00 Ceftriaxone Sodium 50 ml @ 100 mls/hr Q24H IVPB Last administered on 11/25/18 14:15; Admin Dose 100 MLS/HR; Start 11/25/18 at 14:00 Acetaminophen/ Hydrocodone Bitart ([place] (10/325)) 1 tab Q4H PRN PO MODERATE PAIN LEVEL 4-6 Last administered on 11/25/18at 23:57; Admin Dose 1 TAB; Start 11/25/18 at 15:30 Albumin Human 100 ml @ 100 mls/hr Q8H IV Last administered on 11/26/18 06:52; Admin Dose 100 MLS/HR; Start 11/26/18 at 07:00; Stop 11/26/18 at 23:59 Spironolactone (Aldactone) 50 mg BID DIURETICS PO Last administered on 11/26/18 05:52; Admin Dose 50 MG; Start 11/25/18 at 18:00 Furosemide (Lasix) 20 mg DAILY PO ; Start 11/26/18 at 09:00 STEVENSON ZIMMERMAN Nov 26, 2018 08:26
[2018-11-26] MEDS ORDERED: LIDOCAINE 1% (MPF) 5 ML VIAL ONE (08:32)
[2018-11-26] MEDS: FUROSEMIDE 20 MG TAB PO SCH (09:00)
[2018-11-26] MEDS: LACTOBACILLUS RHAMNOSUS CAP PO SCH ×2 (09:00→22:39)
[2018-11-26] MEDS: POLYETHYLENE GLYCOL 17 GM PACKET PO SCH ×2 (09:00→20:44)
[2018-11-26] MEDS: HYDROCODONE/APAP (10/325) TAB PO PRN ×4 (09:45→23:42)
[2018-11-26] MEDS ORDERED: LIDOCAINE 2% (SDV) 5 ML INJ ONE (11:03)
[2018-11-26] MEDS ORDERED: PROPOFOL 20 ML ONE ×2 (11:03→11:15)
--- NOTE | 2018-11-26 11:10 | PREAC ---
Date/Time of Note Date/Time of Note DATE: 11/26/18 TIME: 11:08 Anesthesia Eval and Record Evaluation Time Pre-Procedure Interview DATE: 11/26/18 TIME: 11:08 Age 58 Sex male NPO: 8 hrs Preoperative diagnosis stomach CA, n/v Planned procedure EGD Past Medical History Past Medical History: Includes Endo: Diabetes Hepatic: Cirrhosis, Other (ascites) Heme: Anemia, Thrombocytopenia Surgery & Anesthesia Issues No known issue Meds Anticoagulation: No Beta Chidi within 24 hr: No Reason Beta Chidi not given: Pt. not on B-Chidi Discontinued Reported Medications Metoclopramide Hcl* (Metoclopramide Hcl*) 10 Mg Tablet, 10 MG PO TID PRN for PRN, TAB 06/29/16 Pantoprazole* (Pantoprazole*) 40 Mg Tablet.dr, 40 MG PO DAILY, TAB 06/29/16 Metformin Hcl* (Metformin Hcl*) 1,000 Mg Tablet, 1000 MG PO WITH BREAKFAST DINNE, #60 TAB 06/29/16 Hydrocodone/Acetaminophen ([place] 10-325 Tablet) 1 Each Tablet, 1 EACH PO Q4 for PAIN PRN, TAB 06/29/16 Discontinued Scripts Hydrocodone/Acetaminophen ([place] 5-325 Tablet) 1 Each Tablet, 1 TAB PO Q6H PRN for PAIN, #15 TAB Prov:ASHLYN MANUELS A. DO 11/24/18 Polyethylene Glycol* (Miralax*) 17 Gm Powd.pack, 17 GM PO DAILY, #7 Prov:ASHLYN MANUELS A. DO 11/24/18 Polyethylene Glycol* (Miralax*) 17 Gm Powd.pack, 17 GM PO DAILY, #7 Prov:GLORY MURPHY DO 06/29/16 Current Medications Polyethylene Glycol (Miralax) 17 gm BID PO Last administered on 11/25/18at 20:51; Admin Dose 17 GM; Start 11/24/18 at 21:00 IV Flush (NS 3 ml) 3 ml PER PROTOCOL IV ; Start 11/24/18 at 13:30 Ondansetron HCl (Zofran Inj) 4 mg Q6H PRN IV NAUSEA/VOMITING Last administered on 11/25/18at 14:03; Admin Dose 4 MG; Start 11/24/18 at 13:30 Hydralazine HCl (Apresoline) 10 mg Q6H PRN IV SBP>160; Start 11/24/18 at 13:30 Insulin Aspart (Novolog Insulin Pen) NOVOLOG *MILD* ALGORITHM WITH MEALS BEDTIME SC ; Start 11/24/18 at 17:55 Metoclopramide HCl (Reglan) 5 mg Q6 IV Last administered on 11/26/18at 05:50; Admin Dose 5 MG; Start 11/24/18 at 18:00 Miscellaneous Information 1 ea NOTE XX ; Start 11/24/18 at 13:30 Glucose (Glutose) 15 gm Q15M PRN PO DECREASED GLUCOSE; Start 11/24/18 at 13:30 Glucose (Glutose) 22.5 gm Q15M PRN PO DECREASED GLUCOSE; Start 11/24/18 at 13:30 Dextrose (D50w Syringe) 25 ml Q15M PRN IV DECREASED GLUCOSE; Start 11/24/18 at 13:30 Dextrose (D50w Syringe) 50 ml Q15M PRN IV DECREASED GLUCOSE; Start 11/24/18 at 13:30 Glucagon (Glucagen) 1 mg Q15M PRN IM DECREASED GLUCOSE; Start 11/24/18 at 13:30 Glucose (Glutose) 15 gm Q15M PRN BUCCAL DECREASED GLUCOSE; Start 11/24/18 at 13:30 Lactulose (Enulose) 20 gm Q8 PO Last administered on 11/26/18at 05:52; Admin Dose 20 GM; Start 11/24/18 at 22:00 Nadolol (Corgard) 20 mg DAILY PO Last administered on 11/25/18at 16:50; Admin Dose 20 MG; Start 11/25/18 at 14:30 Lactobacillus Acidophilus/ Rhamnosus (Culturelle) 1 cap BID PO Last administered on 11/25/18at 20:51; Admin Dose 1 CAP; Start 11/25/18 at 21:00 Famotidine (Pepcid) 20 mg HS PO Last administered on 11/25/18at 20:51; Admin Dose 20 MG; Start 11/25/18 at 21:00 Ceftriaxone Sodium 50 ml @ 100 mls/hr Q24H IVPB Last administered on 11/25/18at 14:15; Admin Dose 100 MLS/HR; Start 11/25/18 at 14:00 Acetaminophen/ Hydrocodone Bitart ([place] (10/325)) 1 tab Q4H PRN PO MODERATE PAIN LEVEL 4-6 Last administered on 11/26/18at 09:45; Admin Dose 1 TAB; Start 11/25/18 at 15:30 Albumin Human 100 ml @ 100 mls/hr Q8H IV Last administered on 11/26/18at 06:52; Admin Dose 100 MLS/HR; Start 11/26/18 at 07:00; Stop 11/26/18 at 23:59 Spironolactone (Aldactone) 50 mg BID DIURETICS PO Last administered on 11/26/18at 05:52; Admin Dose 50 MG; Start 11/25/18 at 18:00 Furosemide (Lasix) 20 mg DAILY PO ; Start 11/26/18 at 09:00 Diagnostic Test (Pha) (Accu-Chek) 1 ea Q4 XX ; Start 11/26/18 at 13:00; Status UNV Meds reviewed: Yes Allergies Coded Allergies: naproxen (Unverified Allergy, Mild, itchy, 11/24/18) Allergies Reviewed: Yes Labs/Studies Labs Reviewed: Reviewed by anesthesiologist Result Diagram: 11/26/18 0430 11/26/18 0430 Laboratory Tests 11/26/18 04:30 test: N/A Pre-procedure Exam Last vitals Vital Signs Date Temp Pulse Resp B/P (MAP) Pulse Ox O2 O2 Flow FiO2 Time Delivery Rate 11/26/18 79 17 129/72 98 Room Air 09:15 (91) 11/26/18 98.2 07:33 Airway: Adequate mouth opening, Adequate thyromental dist Mallampati: Mallampati II Teeth: Normal Lung: Normal Heart: Normal ASA Physical Status ASA physical status: 3 Emergency: None Planned Anesthetic General/MAC: MAC Pre-operative Attestations Prior to commencing anesthesia and surgery, the patient was re-evaluated, there was verification of: *The patient's identity *The results of appropriate recent lab work and preoperative vital signs *The above evaluation not changing prior to induction *Anesthetic plan, risk benefits, alternative and complications discussed with patient/family; questions answered; patient/family understands, accepts and wishes to proceed. GIRISH MARSHALL Nov 26, 2018 11:10
[2018-11-26] MEDS ORDERED: LABETALOL HCL 20MG INJ IV PRN (11:30)
[2018-11-26] MEDS ORDERED: FENTAnyl 50 MCG/ML VIAL IV PRN (11:30)
[2018-11-26] MEDS ORDERED: ACETAMINOPHEN 500 MG TAB PO PRN (11:30)
[2018-11-26] MEDS ORDERED: ALBUTEROL 0.083% (NEB) 2.5 MG/3 ML AMP HHN PRN (11:30)
[2018-11-26] MEDS ORDERED: ONDANSETRON 4 MG INJ IV PRN (11:30)
[2018-11-26] MEDS ORDERED: DIPHENHYDRAMINE 50 MG INJ IV PRN (11:30)
--- NOTE | 2018-11-26 11:43 | PAC ---
Date/Time of Note Date/Time of Note DATE: 11/26/18 TIME: 11:43 Post-Anesthesia Notes Post-Anesthesia Note Last documented vital signs Vital Signs Date Temp Pulse Resp B/P (MAP) Pulse Ox O2 O2 Flow FiO2 Time Delivery Rate 11/26/18 Simple 11:16 Mask 11/26/18 98.0 98 76 74 13 16 97/67 100 100 RA 11:15 113 (77) 99/6 8 4 Activity: WNL Respiratory function: WNL Cardiovascular function: WNL Mental status: Baseline Pain reasonably controlled: Yes Hydration appropriate: Yes Nausea/Vomiting absent: Yes GIRISH MARSHALL Nov 26, 2018 11:43
--- NOTE | 2018-11-26 12:10 | PN ---
Date/Time of Note Date/Time of Note DATE: 11/26/18 TIME: 12:08 Assessment/Plan VTE Prophylaxis Risk score (from [facility] [place] [facility])>0 risk: 3 SCD applied (from [facility] [place]): Yes SCD contraindicated: low risk/ambulating Pharmacological prophylaxis: NA/contraindicated Pharm contraindication: surgical contra Lines/Catheters IV Catheter Type (from [facility]): Peripheral IV Urinary Cath still in place: No Assessment/Plan Hospital Course Assessment and plan 1. Decompensated cirrhosis, stable, follow-up with GI recomm; rule out SBP. 2. Ascites sp paracentesis. culture/ cytology sent. started beta-saurav on discharge 3. Past alcoholism 4. Anemia 5. History of upper GI bleed/ ulcers. Dr Han 6. Diabetes 7. Metabolic syndrome 8. Constipation 9. 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 Dr Barbosa 10. Pulmonary/hepatic nodules subcentimeter, Unclear etiology. 11. Possible [place] 12. Chronic liver disease [place]: Portal hypertension/thrombocytopenia 13. Esophagitison EGD. Stomach biopsies taken. 14. Esophageal varices no active bleeding 15. Abd pain r/o SBP. vs due to ascites Subjective: events noted; no fever 11/26 intermittent abdominal pain with no known aggravating or relieving factors. Poor appetite. Positive vomiting overnight. Objective: Vital signs stable no fever Physical exam No pallor icterus Regular no m/r/g Clear Bs diminished, nt, mild distended no r/r/g edema Result Diagram: 11/26/18 0430 11/26/18 0430 Results 24hrs Laboratory Tests Test 11/25/18 17:53 11/25/18 20:50 11/26/18 04:30 11/26/18 10:35 Bedside Glucose 138 165 123 White Blood Count 5.6 Red Blood Count 4.87 Hemoglobin 13.0 L Hematocrit 40.3 L Mean Corpuscular 82.8 Volume Mean Corpuscular 26.7 L Hemoglobin Mean Corpuscular 32.3 Hemoglobin Concent Red Cell 12.5 Distribution Width Platelet Count 112 L Mean Platelet Volume 10.7 H Immature 0.400 Granulocytes % Neutrophils % 60.2 Lymphocytes % 25.7 Monocytes % 11.7 H Eosinophils % 1.6 Basophils % 0.4 Nucleated Red Blood 0.0 Cells % Immature 0.020 Granulocytes # Neutrophils # 3.4 Lymphocytes # 1.4 Monocytes # 0.7 Eosinophils # 0.1 Basophils # 0.0 Nucleated Red Blood 0.0 Cells # Prothrombin Time 14.4 Prothrombin Time 1.1 Ratio INR International 1.11 Normalized Ratio Sodium Level 144 Potassium Level 3.9 Chloride Level 105 Carbon Dioxide Level 29 Anion Gap 10 Blood Urea Nitrogen 13 Creatinine 0.71 Est Glomerular > 60 Filtrat Rate mL/min Glucose Level 132 Hemoglobin A1c 6.8 H Calcium Level 8.5 Magnesium Level 2.1 Total Bilirubin 0.3 Direct Bilirubin 0.00 Indirect Bilirubin 0.3 Aspartate Amino 20 Transf (AST/SGOT) Alanine 17 Aminotransferase (AL T/SGPT) Alkaline Phosphatase 82 Total Protein 6.5 Albumin 3.0 L Globulin 3.50 H Albumin/Globulin 0.85 Ratio Thyroid Stimulating 1.950 Hormone (TSH) Test 11/26/18 11:45 Bedside Glucose 119 Exam/Review of Systems Exam Vitals Vital Signs Date Temp Pulse Resp B/P (MAP) Pulse Ox O2 O2 Flow FiO2 Time Delivery Rate 11/26/18 Simple 11:16 Mask 11/26/18 98.0 76 13 97/67 (77) 100 11:15 Intake and Output 11/25/18 11/25/18 11/26/18 1515:00 23:00 07:00 IntakeIntake Total 250 ml 220 ml OutputOutput Total 0 ml BalanceBalance 250 ml 220 ml Results Results 24hrs Laboratory Tests Test 11/25/18 17:53 11/25/18 20:50 11/26/18 04:30 11/26/18 10:35 Bedside Glucose 138 165 123 White Blood Count 5.6 Red Blood Count 4.87 Hemoglobin 13.0 L Hematocrit 40.3 L Mean Corpuscular 82.8 Volume Mean Corpuscular 26.7 L Hemoglobin Mean Corpuscular 32.3 Hemoglobin Concent Red Cell 12.5 Distribution Width Platelet Count 112 L Mean Platelet Volume 10.7 H Immature 0.400 Granulocytes % Neutrophils % 60.2 Lymphocytes % 25.7 Monocytes % 11.7 H Eosinophils % 1.6 Basophils % 0.4 Nucleated Red Blood 0.0 Cells % Immature 0.020 Granulocytes # Neutrophils # 3.4 Lymphocytes # 1.4 Monocytes # 0.7 Eosinophils # 0.1 Basophils # 0.0 Nucleated Red Blood 0.0 Cells # Prothrombin Time 14.4 Prothrombin Time 1.1 Ratio INR International 1.11 Normalized Ratio Sodium Level 144 Potassium Level 3.9 Chloride Level 105 Carbon Dioxide Level 29 Anion Gap 10 Blood Urea Nitrogen 13 Creatinine 0.71 Est Glomerular > 60 Filtrat Rate mL/min Glucose Level 132 Hemoglobin A1c 6.8 H Calcium Level 8.5 Magnesium Level 2.1 Total Bilirubin 0.3 Direct Bilirubin 0.00 Indirect Bilirubin 0.3 Aspartate Amino 20 Transf (AST/SGOT) Alanine 17 Aminotransferase (AL T/SGPT) Alkaline Phosphatase 82 Total Protein 6.5 Albumin 3.0 L Globulin 3.50 H Albumin/Globulin 0.85 Ratio Thyroid Stimulating 1.950 Hormone (TSH) Test 11/26/18 11:45 Bedside Glucose 119 Medications Medication Current Medications Polyethylene Glycol (Miralax) 17 gm BID PO Last administered on 11/25/18at 20:51; Admin Dose 17 GM; Start 11/24/18 at 21:00 IV Flush (NS 3 ml) 3 ml PER PROTOCOL IV ; Start 11/24/18 at 13:30 Ondansetron HCl (Zofran Inj) 4 mg Q6H PRN IV NAUSEA/VOMITING Last administered on 11/25/18at 14:03; Admin Dose 4 MG; Start 11/24/18 at 13:30 Hydralazine HCl (Apresoline) 10 mg Q6H PRN IV SBP>160; Start 11/24/18 at 13:30 Insulin Aspart (Novolog Insulin Pen) NOVOLOG *MILD* ALGORITHM WITH MEALS BEDTIME SC ; Start 11/24/18 at 17:55 Metoclopramide HCl (Reglan) 5 mg Q6 IV Last administered on 11/26/18at 05:50; Admin Dose 5 MG; Start 11/24/18 at 18:00 Miscellaneous Information 1 ea NOTE XX ; Start 11/24/18 at 13:30 Glucose (Glutose) 15 gm Q15M PRN PO DECREASED GLUCOSE; Start 11/24/18 at 13:30 Glucose (Glutose) 22.5 gm Q15M PRN PO DECREASED GLUCOSE; Start 11/24/18 at 13:30 Dextrose (D50w Syringe) 25 ml Q15M PRN IV DECREASED GLUCOSE; Start 11/24/18 at 13:30 Dextrose (D50w Syringe) 50 ml Q15M PRN IV DECREASED GLUCOSE; Start 11/24/18 at 13:30 Glucagon (Glucagen) 1 mg Q15M PRN IM DECREASED GLUCOSE; Start 11/24/18 at 13:30 Glucose (Glutose) 15 gm Q15M PRN BUCCAL DECREASED GLUCOSE; Start 11/24/18 at 13:30 Lactulose (Enulose) 20 gm Q8 PO Last administered on 11/26/18at 05:52; Admin Dose 20 GM; Start 11/24/18 at 22:00 Nadolol (Corgard) 20 mg DAILY PO Last administered on 11/25/18at 16:50; Admin Dose 20 MG; Start 11/25/18 at 14:30 Lactobacillus Acidophilus/ Rhamnosus (Culturelle) 1 cap BID PO Last administered on 11/25/18 20:51; Admin Dose 1 CAP; Start 11/25/18 at 21:00 Famotidine (Pepcid) 20 mg HS PO Last administered on 11/25/18 20:51; Admin Dose 20 MG; Start 11/25/18 at 21:00 Ceftriaxone Sodium 50 ml @ 100 mls/hr Q24H IVPB Last administered on 11/25/18at 14:15; Admin Dose 100 MLS/HR; Start 11/25/18 at 14:00 Acetaminophen/ Hydrocodone Bitart ([place] (10/325)) 1 tab Q4H PRN PO MODERATE PAIN LEVEL 4-6 Last administered on 11/26/18at 09:45; Admin Dose 1 TAB; Start 11/25/18 at 15:30 Albumin Human 100 ml @ 100 mls/hr Q8H IV Last administered on 11/26/18 06:52; Admin Dose 100 MLS/HR; Start 11/26/18 at 07:00; Stop 11/26/18 at 23:59 Spironolactone (Aldactone) 50 mg BID DIURETICS PO Last administered on 11/26/18 05:52; Admin Dose 50 MG; Start 11/25/18 at 18:00 Furosemide (Lasix) 20 mg DAILY PO ; Start 11/26/18 at 09:00 Diagnostic Test (Pha) (Accu-Chek) 1 ea Q4 XX ; Start 11/26/18 at 13:00 Fentanyl (Sublimaze) 25 mcg PACU ORDER PRN IV MILD PAIN 1-3; Start 11/26/18 at 11:30; Stop 11/26/18 at 19:00 Ondansetron HCl (Zofran Inj) 4 mg PACU ORDER PRN IV NAUSEA/VOMITING; Start 11/26/18 at 11:30; Stop 11/26/18 at 19:00 Labetalol HCl (Labetalol) 5 mg PACU ORDER PRN IV HIGH BLOOD PRESSURE; Start 11/26/18 at 11:30; Stop 11/26/18 at 19:00 Albuterol (Proventil 0.083% (Neb)) 2.5 mg PACU ORDER PRN HHN .WHEEZING; Start 11/26/18 at 11:30; Stop 11/26/18 at 19:00 Diphenhydramine HCl (Benadryl) 25 mg PACU ORDER PRN IV .PRURITUS; Start 11/26/18 at 11:30; Stop 11/26/18 at 19:00 Acetaminophen (Tylenol Tab) 1,000 mg ONCE PRN PO pain; Start 11/26/18 at 11:30; Stop 11/27/18 at 11:29 JANIE CARNEY MD Nov 26, 2018 12:10
[2018-11-26] MEDS ORDERED: ACCU-CHEK XX SCH (13:00)
[2018-11-26] MEDS: INSULIN ASPART [NOVOLOG] 3 ML PEN SC SCH ×4 (13:34→22:39)
[2018-11-26] MEDS: CEFTRIAXONE 1 GM/50 ML (PMX) 50 ML IVPB SCH (13:38)
[2018-11-26] MEDS: NADOLOL 40 MG TAB PO SCH (19:04)
[2018-11-26] MEDS: FAMOTIDINE 20 MG TAB PO SCH (20:44)
[2018-11-27 01:42] VITALS: BP 107/66; PULSE 74; RESP 18
[2018-11-27] MEDS: SPIRONOLACTONE 50 MG TAB PO SCH ×2 (05:50→18:45)
[2018-11-27] MEDS: LACTULOSE 30ML CUP PO SCH ×3 (05:50→21:31)
[2018-11-27] MEDS: METOCLOPRAMIDE 10 MG INJ IV SCH ×4 (05:50→23:44)
[2018-11-27] MEDS: HYDROCODONE/APAP (10/325) TAB PO PRN ×3 (05:50→21:54)
[2018-11-27] MEDS: INSULIN ASPART [NOVOLOG] 3 ML PEN SC SCH ×4 (07:50→21:00)
[2018-11-27 07:51] VITALS: BP 114/72; PULSE 77; RESP 18
[2018-11-27] MEDS: FUROSEMIDE 20 MG TAB PO SCH (08:48)
[2018-11-27] MEDS: LACTOBACILLUS RHAMNOSUS CAP PO SCH ×2 (08:49→21:31)
[2018-11-27] MEDS: NADOLOL 40 MG TAB PO SCH (08:50)
--- NOTE | 2018-11-27 12:15 | PN ---
Date/Time of Note Date/Time of Note DATE: 11/27/18 TIME: 12:13 Assessment/Plan VTE Prophylaxis Risk score (from [facility])>0 risk: 5 SCD applied (from [facility]): Yes SCD contraindicated: low risk/ambulating Pharmacological prophylaxis: LMWH Lines/Catheters IV [facility] (from [facility] [place] Urinary Cath still in place: No Assessment/Plan Hospital Course Assessment and plan 1. Decompensated cirrhosis, stable, follow-up, rule out SBP. 2. Ascites sp paracentesis. culture/ cytology sent. started beta-saurav on discharge. 3. Past alcoholism 4. Anemia 5. History of upper GI bleed/ ulcers. Dr Han 6. Diabetes 7. Metabolic syndrome 8. Constipation 9. Adenocarcinoma stomach '16, sp neoadjuvant chemo; Her2 negative. Dr Barbosa 10. Pulmonary/hepatic nodules subcentimeter, Unclear etiology. 11. Possible [place] 12. Chronic liver disease [place]: Portal hypertension/thrombocytopenia/ascites 13. Esophagitison EGD. Stomach biopsies taken. 14. Esophageal varices no active bleeding 15. Abd pain r/o SBP. vs due to ascites Subjective: events noted; no fever 11/26 intermittent abdominal pain with no known aggravating or relieving factors. Poor appetite. Positive vomiting overnight. 11/27: Less discomfort. No fever. Tolerating diet. I updated him and his regarding the liver damage Objective: Vital signs stable no fever Physical exam No pallor icterus Regular no m/r/g Clear Bs diminished, nt, nd; no r/r/g edema Result Diagram: 11/27/184 11/27/18 0424 Results 24hrs Laboratory Tests Test 11/26/18 13:33 11/26/18 22:35 11/27/18 04:24 11/27/18 08:45 Bedside Glucose 126 172 138 White Blood Count 5.9 Red Blood Count 4.34 L Hemoglobin 11.8 L Hematocrit 35.8 L Mean Corpuscular 82.5 Volume Mean Corpuscular 27.2 L Hemoglobin Mean Corpuscular 33.0 Hemoglobin Concent Red Cell 12.6 Distribution Width Platelet Count 106 L Mean Platelet Volume 11.2 H Immature 0.300 Granulocytes % Neutrophils % 60.7 Lymphocytes % 25.4 Monocytes % 11.3 H Eosinophils % 2.0 Basophils % 0.3 Nucleated Red Blood 0.0 Cells % Immature 0.020 Granulocytes # Neutrophils # 3.6 Lymphocytes # 1.5 Monocytes # 0.7 Eosinophils # 0.1 Basophils # 0.0 Nucleated Red Blood 0.0 Cells # Sodium Level 143 Potassium Level 3.7 Chloride Level 108 Carbon Dioxide Level 27 Anion Gap 8 Blood Urea Nitrogen 11 Creatinine 0.70 Est Glomerular > 60 Filtrat Rate mL/min Glucose Level 109 Calcium Level 8.7 Magnesium Level 2.2 Total Bilirubin 0.4 Direct Bilirubin 0.00 Indirect Bilirubin 0.4 Aspartate Amino 16 Transf (AST/SGOT) Alanine 22 Aminotransferase (AL T/SGPT) Alkaline Phosphatase 58 Total Protein 6.4 Albumin 3.4 Globulin 3.00 Albumin/Globulin 1.13 Ratio Exam/Review of Systems Exam Vitals Vital Signs Date Temp Pulse Resp B/P (MAP) Pulse Ox O2 O2 Flow FiO2 Time Delivery Rate 11/27/18 98.0 77 18 114/72 97 Room Air 07:51 (86) Intake and Output 11/26/18 11/26/18 11/27/18 1515:00 23:00 07:00 IntakeIntake Total 150 ml 560 ml 640 ml OutputOutput Total 1575 ml 100 ml BalanceBalance -1425 ml 460 ml 640 ml Results Results 24hrs Laboratory Tests Test 11/26/18 13:33 11/26/18 22:35 11/27/18 04:24 11/27/18 08:45 Bedside Glucose 126 172 138 White Blood Count 5.9 Red Blood Count 4.34 L Hemoglobin 11.8 L Hematocrit 35.8 L Mean Corpuscular 82.5 Volume Mean Corpuscular 27.2 L Hemoglobin Mean Corpuscular 33.0 Hemoglobin Concent Red Cell 12.6 Distribution Width Platelet Count 106 L Mean Platelet Volume 11.2 H Immature 0.300 Granulocytes % Neutrophils % 60.7 Lymphocytes % 25.4 Monocytes % 11.3 H Eosinophils % 2.0 Basophils % 0.3 Nucleated Red Blood 0.0 Cells % Immature 0.020 Granulocytes # Neutrophils # 3.6 Lymphocytes # 1.5 Monocytes # 0.7 Eosinophils # 0.1 Basophils # 0.0 Nucleated Red Blood 0.0 Cells # Sodium Level 143 Potassium Level 3.7 Chloride Level 108 Carbon Dioxide Level 27 Anion Gap 8 Blood Urea Nitrogen 11 Creatinine 0.70 Est Glomerular > 60 Filtrat Rate mL/min Glucose Level 109 Calcium Level 8.7 Magnesium Level 2.2 Total Bilirubin 0.4 Direct Bilirubin 0.00 Indirect Bilirubin 0.4 Aspartate Amino 16 Transf (AST/SGOT) Alanine 22 Aminotransferase (AL T/SGPT) Alkaline Phosphatase 58 Total Protein 6.4 Albumin 3.4 Globulin 3.00 Albumin/Globulin 1.13 Ratio Medications Medication Current Medications Polyethylene Glycol (Miralax) 17 gm BID PO Last administered on 11/26/18at 20:44; Admin Dose 17 GM; Start 11/24/18 at 21:00 IV Flush (NS 3 ml) 3 ml PER PROTOCOL IV ; Start 11/24/18 at 13:30 Ondansetron HCl (Zofran Inj) 4 mg Q6H PRN IV NAUSEA/VOMITING Last administered on 11/25/18at 14:03; Admin Dose 4 MG; Start 11/24/18 at 13:30 Hydralazine HCl (Apresoline) 10 mg Q6H PRN IV SBP>160; Start 11/24/18 at 13:30 Insulin Aspart (Novolog Insulin Pen) NOVOLOG *MILD* ALGORITHM WITH MEALS BEDTIME SC ; Start 11/24/18 at 17:55 Metoclopramide HCl (Reglan) 5 mg Q6 IV Last administered on 11/27/18at 05:50; Admin Dose 5 MG; Start 11/24/18 at 18:00 Miscellaneous Information 1 ea NOTE XX ; Start 11/24/18 at 13:30 Glucose (Glutose) 15 gm Q15M PRN PO DECREASED GLUCOSE; Start 11/24/18 at 13:30 Glucose (Glutose) 22.5 gm Q15M PRN PO DECREASED GLUCOSE; Start 11/24/18 at 13:30 Dextrose (D50w Syringe) 25 ml Q15M PRN IV DECREASED GLUCOSE; Start 11/24/18 at 13:30 Dextrose (D50w Syringe) 50 ml Q15M PRN IV DECREASED GLUCOSE; Start 11/24/18 at 13:30 Glucagon (Glucagen) 1 mg Q15M PRN IM DECREASED GLUCOSE; Start 11/24/18 at 13:30 Glucose (Glutose) 15 gm Q15M PRN BUCCAL DECREASED GLUCOSE; Start 11/24/18 at 13:30 Lactulose (Enulose) 20 gm Q8 PO Last administered on 11/27/18at 05:50; Admin Dose 20 GM; Start 11/24/18 at 22:00 Nadolol (Corgard) 20 mg DAILY PO Last administered on 11/27/18 08:50; Admin Dose 20 MG; Start 11/25/18 at 14:30 Lactobacillus Acidophilus/ Rhamnosus (Culturelle) 1 cap BID PO Last administered on 11/27/18 08:49; Admin Dose 1 CAP; Start 11/25/18 at 21:00 Famotidine (Pepcid) 20 mg HS PO Last administered on 11/26/18 20:44; Admin Dose 20 MG; Start 11/25/18 at 21:00 Ceftriaxone Sodium 50 ml @ 100 mls/hr Q24H IVPB Last administered on 11/26/18 13:38; Admin Dose 100 MLS/HR; Start 11/25/18 at 14:00 Acetaminophen/ Hydrocodone Bitart ([place] (10/325)) 1 tab Q4H PRN PO MODERATE PAIN LEVEL 4-6 Last administered on 11/27/18 05:50; Admin Dose 1 TAB; Start 11/25/18 at 15:30 Spironolactone (Aldactone) 50 mg BID DIURETICS PO Last administered on 11/27/18 05:50; Admin Dose 50 MG; Start 11/25/18 at 18:00 Furosemide (Lasix) 20 mg DAILY PO Last administered on 11/27/18 08:48; Admin Dose 20 MG; Start 11/26/18 at 09:00 JANIE CARNEY MD Nov 27, 2018 12:15
--- NOTE | 2018-11-27 14:08 | CONS ---
Assessment/Plan Assessment/Plan Assessment/Plan (Daily) 1. Cirrhosis of liver. 2. Portal hypertension. 3. Ascites. 4. Diabetes mellitus. 5. Constipation. 6. 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 If negative for malignancy then continue with diuretics Oncology consult Consultation Date/Type/Reason Admit Date/Time Nov 24, 2018 at 13:13 Initial Consult Date Date/Time of Note DATE: 11/27/18 TIME: 14:06 24 HR Interval Summary Free Text/Dictation No nausea or vomiting Constitutional: improved Exam/Review of Systems Exam Vitals Vital Signs Date Temp Pulse Resp B/P (MAP) Pulse Ox O2 O2 Flow FiO2 Time Delivery Rate 11/27/18 98.0 77 18 114/72 97 Room Air 07:51 (86) Intake and Output 11/26/18 11/26/18 11/27/18 1515:00 23:00 07:00 IntakeIntake Total 150 ml 560 ml 640 ml OutputOutput Total 1575 ml 100 ml BalanceBalance -1425 ml 460 ml 640 ml Constitutional: alert, oriented, well developed Psych: no complaints, nl mood/affect Head: normocephalic, atraumatic Eyes: nl conjunctiva, EOMI, nl lids, nl sclera, PERRL ENMT: nl external ears & nose, nl lips & teeth, nl nasal mucosa & septum Neck: supple, non-tender Respiratory: clear to auscultation, normal air movement Cardiovascular: regular rate and rhythm, nl pulses Gastrointestinal: soft, nl liver, spleen, non-tender Musculoskeletal: nl extremities to inspection, nl gait and stance Extremities: normal pulses 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, nl mental status, nl speech, nl strength Skin: nl turgor; No rash or lesions Lymph: nl lymph nodes Results Result Diagram: 11/27/184 11/27/18 042 Results 24hrs Laboratory Tests Test 11/26/18 22:35 11/27/18 04:24 11/27/18 08:45 11/27/18 12:45 Bedside Glucose 172 138 106 White Blood Count 5.9 Red Blood Count 4.34 L Hemoglobin 11.8 L Hematocrit 35.8 L Mean Corpuscular 82.5 Volume Mean Corpuscular 27.2 L Hemoglobin Mean Corpuscular 33.0 Hemoglobin Concent Red Cell 12.6 Distribution Width Platelet Count 106 L Mean Platelet Volume 11.2 H Immature 0.300 Granulocytes % Neutrophils % 60.7 Lymphocytes % 25.4 Monocytes % 11.3 H Eosinophils % 2.0 Basophils % 0.3 Nucleated Red Blood 0.0 Cells % Immature 0.020 Granulocytes # Neutrophils # 3.6 Lymphocytes # 1.5 Monocytes # 0.7 Eosinophils # 0.1 Basophils # 0.0 Nucleated Red Blood 0.0 Cells # Sodium Level 143 Potassium Level 3.7 Chloride Level 108 Carbon Dioxide Level 27 Anion Gap 8 Blood Urea Nitrogen 11 Creatinine 0.70 Est Glomerular > 60 Filtrat Rate mL/min Glucose Level 109 Calcium Level 8.7 Magnesium Level 2.2 Total Bilirubin 0.4 Direct Bilirubin 0.00 Indirect Bilirubin 0.4 Aspartate Amino 16 Transf (AST/SGOT) Alanine 22 Aminotransferase (AL T/SGPT) Alkaline Phosphatase 58 Total Protein 6.4 Albumin 3.4 Globulin 3.00 Albumin/Globulin 1.13 Ratio Medications Medication Current Medications Polyethylene Glycol (Miralax) 17 gm BID PO Last administered on 11/26/18at 20:44; Admin Dose 17 GM; Start 11/24/18 at 21:00 IV Flush (NS 3 ml) 3 ml PER PROTOCOL IV ; Start 11/24/18 at 13:30 Ondansetron HCl (Zofran Inj) 4 mg Q6H PRN IV NAUSEA/VOMITING Last administered on 11/25/18at 14:03; Admin Dose 4 MG; Start 11/24/18 at 13:30 Hydralazine HCl (Apresoline) 10 mg Q6H PRN IV SBP>160; Start 11/24/18 at 13:30 Insulin Aspart (Novolog Insulin Pen) NOVOLOG *MILD* ALGORITHM WITH MEALS BEDTIME SC ; Start 11/24/18 at 17:55 Metoclopramide HCl (Reglan) 5 mg Q6 IV Last administered on 11/27/18at 12:50; Admin Dose 5 MG; Start 11/24/18 at 18:00 Miscellaneous Information 1 ea NOTE XX ; Start 11/24/18 at 13:30 Glucose (Glutose) 15 gm Q15M PRN PO DECREASED GLUCOSE; Start 11/24/18 at 13:30 Glucose (Glutose) 22.5 gm Q15M PRN PO DECREASED GLUCOSE; Start 11/24/18 at 13:30 Dextrose (D50w Syringe) 25 ml Q15M PRN IV DECREASED GLUCOSE; Start 11/24/18 at 13:30 Dextrose (D50w Syringe) 50 ml Q15M PRN IV DECREASED GLUCOSE; Start 11/24/18 at 13:30 Glucagon (Glucagen) 1 mg Q15M PRN IM DECREASED GLUCOSE; Start 11/24/18 at 13:30 Glucose (Glutose) 15 gm Q15M PRN BUCCAL DECREASED GLUCOSE; Start 11/24/18 at 13:30 Lactulose (Enulose) 20 gm Q8 PO Last administered on 11/27/18 05:50; Admin Dose 20 GM; Start 11/24/18 at 22:00 Nadolol (Corgard) 20 mg DAILY PO Last administered on 11/27/18 08:50; Admin Dose 20 MG; Start 11/25/18 at 14:30 Lactobacillus Acidophilus/ Rhamnosus (Culturelle) 1 cap BID PO Last administered on 11/27/18 08:49; Admin Dose 1 CAP; Start 11/25/18 at 21:00 Famotidine (Pepcid) 20 mg HS PO Last administered on 11/26/18at 20:44; Admin Dose 20 MG; Start 11/25/18 at 21:00 Ceftriaxone Sodium 50 ml @ 100 mls/hr Q24H IVPB Last administered on 11/26/18 13:38; Admin Dose 100 MLS/HR; Start 11/25/18 at 14:00 Acetaminophen/ Hydrocodone Bitart ([place] (10/325)) 1 tab Q4H PRN PO MODERATE PAIN LEVEL 4-6 Last administered on 11/27/18 05:50; Admin Dose 1 TAB; Start 11/25/18 at 15:30 Spironolactone (Aldactone) 50 mg BID DIURETICS PO Last administered on 11/27/18 05:50; Admin Dose 50 MG; Start 11/25/18 at 18:00 Furosemide (Lasix) 20 mg DAILY PO Last administered on 11/27/18 08:48; Admin Dose 20 MG; Start 11/26/18 at 09:00 DEIDRE REYNOLDS MD Nov 27, 2018 14:08
[2018-11-27] MEDS: POLYETHYLENE GLYCOL 17 GM PACKET PO SCH ×2 (14:39→21:31)
[2018-11-27] MEDS: CEFTRIAXONE 1 GM/50 ML (PMX) 50 ML IVPB SCH (14:39)
[2018-11-27 15:28] VITALS: BP 106/64; PULSE 68; RESP 18
[2018-11-27 19:25] VITALS: BP 112/67; PULSE 76; RESP 18
[2018-11-27] MEDS: FAMOTIDINE 20 MG TAB PO SCH (21:31)
[2018-11-28 02:15] VITALS: BP 116/73; PULSE 75; RESP 18
[2018-11-28] MEDS: LACTULOSE 30ML CUP PO SCH (06:00)
[2018-11-28] MEDS: METOCLOPRAMIDE 10 MG INJ IV SCH ×3 (06:44→18:03)
[2018-11-28] MEDS: SPIRONOLACTONE 50 MG TAB PO SCH ×2 (06:44→18:03)
[2018-11-28 08:29] VITALS: BP 125/83; PULSE 77; RESP 18
[2018-11-28] MEDS: INSULIN ASPART [NOVOLOG] 3 ML PEN SC SCH ×4 (09:06→21:00)
[2018-11-28] MEDS: NADOLOL 40 MG TAB PO SCH (09:08)
[2018-11-28] MEDS: POLYETHYLENE GLYCOL 17 GM PACKET PO SCH (09:09)
[2018-11-28] MEDS: FUROSEMIDE 20 MG TAB PO SCH (09:09)
[2018-11-28] MEDS: LACTOBACILLUS RHAMNOSUS CAP PO SCH ×2 (09:09→20:47)
[2018-11-28] MEDS: HYDROCODONE/APAP (10/325) TAB PO PRN ×2 (10:09→19:32)
--- NOTE | 2018-11-28 13:40 | PN ---
Date/Time of Note Date/Time of Note DATE: 11/28/18 TIME: 13:36 Assessment/Plan VTE Prophylaxis Risk score (from Ns)>0 risk: 5 SCD applied (from [facility] [place], [place]): Yes SCD contraindicated: low risk/ambulating Pharmacological prophylaxis: NA/contraindicated Pharm contraindication: low risk/ambulating Lines/Catheters IV C[facility]ter Type [facility]from [facility] Saline Lock Urinary Cath still in place: No Assessment/Plan Hospital Course Assessment and plan 1. Decompensated cirrhosis, stable, follow-up ascites path & rule out SBP. MRI/ Pet Liver? 2. Ascites sp paracentesis. culture/ cytology sent. started bb. 3. Past alcoholism 4. Anemia 5. History of upper GI bleed/ ulcers. s/p egd/ bx w Dr Han 6. Diabetes 7. Metabolic syndrome 8. Constipation 9. Adenocarcinoma stomach '16, sp neoadjuvant chemo; Her2 negative. possible reoccurence, Consult Dr Barbosa 10. Pulmonary/hepatic nodules subcentimeter, Unclear etiology. 11. Possible Shepard 12. Chronic liver disease [place]: Portal hypertension/thrombocytopenia/ascites; adjust lactulose 13. Esophagitison EGD. Stomach biopsies taken. 14. Esophageal varices no active bleeding 15. Abd pain r/o SBP. vs due to ascites Subjective: events noted; no fever 11/26 intermittent abdominal pain with no known aggravating or relieving factors. Poor appetite. Positive vomiting overnight. 11/27: Less discomfort. No fever. Tolerating diet. I updated him and his regarding the liver damage 11/28: No abdominal pain fever. Hungry. Objective: Vital signs stable no fever Physical exam No pallor icterus Regular no m/r/g Clear Bs diminished, nt, nd; no r/r/g edema Result Diagram: 11/27/184 11/27/184 Results 24hrs Laboratory Tests Test 11/27/18 18:08 11/27/18 21:32 11/28/18 09:05 11/28/18 13:24 Bedside Glucose 128 111 114 119 Exam/Review of Systems Exam Vitals Vital Signs Date Temp Pulse Resp B/P (MAP) Pulse Ox O2 O2 Flow FiO2 Time Delivery Rate 11/28/18 98.0 77 18 125/83 94 08:29 (97) 11/27/18 Room Air 15:28 Intake and Output 11/27/18 11/27/18 11/28/18 1515:00 23:00 07:00 IntakeIntake Total 360 ml 550 ml 1 ml BalanceBalance 360 ml 550 ml 1 ml Results Results 24hrs Laboratory Tests Test 11/27/18 18:08 11/27/18 21:32 11/28/18 09:05 11/28/18 13:24 Bedside Glucose 128 111 114 119 Medications Medication Current Medications Polyethylene Glycol (Miralax) 17 gm BID PO Last administered on 11/28/18at 09:09; Admin Dose 17 GM; Start 11/24/18 at 21:00 IV Flush (NS 3 ml) 3 ml PER PROTOCOL IV ; Start 11/24/18 at 13:30 Ondansetron HCl (Zofran Inj) 4 mg Q6H PRN IV NAUSEA/VOMITING Last administered on 11/25/18at 14:03; Admin Dose 4 MG; Start 11/24/18 at 13:30 Hydralazine HCl (Apresoline) 10 mg Q6H PRN IV SBP>160; Start 11/24/18 at 13:30 Insulin Aspart (Novolog Insulin Pen) NOVOLOG *MILD* ALGORITHM WITH MEALS BEDTIME SC ; Start 11/24/18 at 17:55 Metoclopramide HCl (Reglan) 5 mg Q6 IV Last administered on 11/28/18at 12:42; Admin Dose 5 MG; Start 11/24/18 at 18:00 Miscellaneous Information 1 ea NOTE XX ; Start 11/24/18 at 13:30 Glucose (Glutose) 15 gm Q15M PRN PO DECREASED GLUCOSE; Start 11/24/18 at 13:30 Glucose (Glutose) 22.5 gm Q15M PRN PO DECREASED GLUCOSE; Start 11/24/18 at 13:30 Dextrose (D50w Syringe) 25 ml Q15M PRN IV DECREASED GLUCOSE; Start 11/24/18 at 13:30 Dextrose (D50w Syringe) 50 ml Q15M PRN IV DECREASED GLUCOSE; Start 11/24/18 at 13:30 Glucagon (Glucagen) 1 mg Q15M PRN IM DECREASED GLUCOSE; Start 11/24/18 at 13:30 Glucose (Glutose) 15 gm Q15M PRN BUCCAL DECREASED GLUCOSE; Start 11/24/18 at 13:30 Lactulose (Enulose) 20 gm Q8 PO Last administered on 11/27/18 21:31; Admin Dose 20 GM; Start 11/24/18 at 22:00 Nadolol (Corgard) 20 mg DAILY PO Last administered on 11/28/18 09:08; Admin Dose 20 MG; Start 11/25/18 at 14:30 Lactobacillus Acidophilus/ Rhamnosus (Culturelle) 1 cap BID PO Last administered on 11/28/18 09:09; Admin Dose 1 CAP; Start 11/25/18 at 21:00 Famotidine (Pepcid) 20 mg HS PO Last administered on 11/27/18 21:31; Admin Dose 20 MG; Start 11/25/18 at 21:00 Ceftriaxone Sodium 50 ml @ 100 mls/hr Q24H IVPB Last administered on 11/27/18 14:39; Admin Dose 100 MLS/HR; Start 11/25/18 at 14:00 Acetaminophen/ Hydrocodone Bitart ([place] (10/325)) 1 tab Q4H PRN PO MODERATE PAIN LEVEL 4-6 Last administered on 11/28/18 10:09; Admin Dose 1 TAB; Start 11/25/18 at 15:30 Spironolactone (Aldactone) 50 mg BID DIURETICS PO Last administered on 11/28/18 06:44; Admin Dose 50 MG; Start 11/25/18 at 18:00 Furosemide (Lasix) 20 mg DAILY PO Last administered on 11/28/18 09:09; Admin Dose 20 MG; Start 11/26/18 at 09:00 JANIE CARNEY MD Nov 28, 2018 13:40
[2018-11-28 15:02] VITALS: BP 126/72; PULSE 79; RESP 18
[2018-11-28] MEDS: CEFTRIAXONE 1 GM/50 ML (PMX) 50 ML IVPB SCH (15:02)
[2018-11-28] MEDS: THIAMINE 100 MG TAB PO SCH (15:29)
[2018-11-28 17:50] VITALS: BP 110/73
--- NOTE | 2018-11-28 18:54 | CONS ---
Assessment/Plan Assessment/Plan Assessment/Plan (Daily) Assessment/Plan Assessment/Plan Assessment/Plan (Daily) 1. Cirrhosis of liver. 2. Portal hypertension. Responding well to diuretics 3. Ascites. 4. Diabetes mellitus. 5. Constipation. 6. 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 If negative for malignancy then continue with diuretics Oncology consult P.o. fluid restriction 2 g sodium diet Consultation Date/Type/Reason Admit Date/Time Nov 24, 2018 at 13:13 Initial Consult Date Date/Time of Note DATE: 11/28/18 TIME: 18:53 24 HR Interval Summary Free Text/Dictation No nausea no vomiting Patient is a good diuresis Constitutional: improved Exam/Review of Systems Exam Vitals Vital Signs Date Temp Pulse Resp B/P (MAP) Pulse Ox O2 O2 Flow FiO2 Time Delivery Rate 11/28/18 110/73 17:50 (85) 11/28/18 98.3 79 18 96 Room Air 15:02 Intake and Output 11/27/18 11/27/18 11/28/18 1515:00 23:00 07:00 IntakeIntake Total 360 ml 550 ml 1 ml BalanceBalance 360 ml 550 ml 1 ml Constitutional: alert, oriented, well developed Psych: no complaints, nl mood/affect Head: normocephalic, atraumatic Eyes: nl conjunctiva, EOMI, nl lids, nl sclera, PERRL ENMT: nl external ears & nose, nl lips & teeth, nl nasal mucosa & septum Neck: supple, non-tender Respiratory: clear to auscultation, normal air movement Cardiovascular: regular rate and rhythm, nl pulses Gastrointestinal: soft, nl liver, spleen, non-tender Musculoskeletal: nl extremities to inspection, nl gait and stance Extremities: normal pulses Neurological: STEM ASSEMBLER II-XII intact, nl mental status, nl speech, nl strength Skin: nl turgor; No rash or lesions Lymph: nl lymph nodes Results Result Diagram: 11/27/1842311/27/18423 Results 24hrs Laboratory Tests Test 11/27/18 21:32 11/28/18 09:05 11/28/18 13:24 11/28/18 18:02 Bedside Glucose 111 114 119 106 Medications Medication Current Medications IV Flush (NS 3 ml) 3 ml PER PROTOCOL IV ; Start 11/24/18 at 13:30 Ondansetron HCl (Zofran Inj) 4 mg Q6H PRN IV NAUSEA/VOMITING Last administered on 11/25/18at 14:03; Admin Dose 4 MG; Start 11/24/18 at 13:30 Hydralazine HCl (Apresoline) 10 mg Q6H PRN IV SBP>160; Start 11/24/18 at 13:30 Insulin Aspart (Novolog Insulin Pen) NOVOLOG *MILD* ALGORITHM WITH MEALS BEDTIME SC ; Start 11/24/18 at 17:55 Metoclopramide HCl (Reglan) 5 mg Q6 IV Last administered on 11/28/18at 18:03; Admin Dose 5 MG; Start 11/24/18 at 18:00 Miscellaneous Information 1 ea NOTE XX ; Start 11/24/18 at 13:30 Glucose (Glutose) 15 gm Q15M PRN PO DECREASED GLUCOSE; Start 11/24/18 at 13:30 Glucose (Glutose) 22.5 gm Q15M PRN PO DECREASED GLUCOSE; Start 11/24/18 at 13:30 Dextrose (D50w Syringe) 25 ml Q15M PRN IV DECREASED GLUCOSE; Start 11/24/18 at 13:30 Dextrose (D50w Syringe) 50 ml Q15M PRN IV DECREASED GLUCOSE; Start 11/24/18 at 13:30 Glucagon (Glucagen) 1 mg Q15M PRN IM DECREASED GLUCOSE; Start 11/24/18 at 13:30 Glucose (Glutose) 15 gm Q15M PRN BUCCAL DECREASED GLUCOSE; Start 11/24/18 at 13:30 Nadolol (Corgard) 20 mg DAILY PO Last administered on 11/28/18at 09:08; Admin Dose 20 MG; Start 11/25/18 at 14:30 Lactobacillus Acidophilus/ Rhamnosus (Culturelle) 1 cap BID PO Last administered on 11/28/18at 09:09; Admin Dose 1 CAP; Start 11/25/18 at 21:00 Famotidine (Pepcid) 20 mg HS PO Last administered on 11/27/18at 21:31; Admin Dose 20 MG; Start 11/25/18 at 21:00 Ceftriaxone Sodium 50 ml @ 100 mls/hr Q24H IVPB Last administered on 11/28/18at 15:02; Admin Dose 100 MLS/HR; Start 11/25/18 at 14:00 Acetaminophen/ Hydrocodone Bitart ([place] ()) 1 tab Q4H PRN PO MODERATE PAIN LEVEL 4-6 Last administered on 11/28/18at 10:09; Admin Dose 1 TAB; Start 11/25/18 at 15:30 Spironolactone (Aldactone) 50 mg BID DIURETICS PO Last administered on 11/28/18 18:03; Admin Dose 50 MG; Start 11/25/18 at 18:00 Furosemide (Lasix) 20 mg DAILY PO Last administered on 11/28/18 09:09; Admin Dose 20 MG; Start 11/26/18 at 09:00 Lactulose (Enulose) 20 gm DAILY PO ; Start 11/29/18 at 09:00 Thiamine HCl (Vitamin B1) 100 mg DAILY PO Last administered on 11/28/18 15:29; Admin Dose 100 MG; Start 11/28/18 at 14:00 DEIDRE REYNOLDS MD Nov 28, 2018 18:54
[2018-11-28 19:25] VITALS: BP 110/69; PULSE 72; RESP 20
[2018-11-28] MEDS: FAMOTIDINE 20 MG TAB PO SCH (20:47)
[2018-11-29] MEDS: HYDROCODONE/APAP (10/325) TAB PO PRN ×3 (01:33→20:42)
[2018-11-29 02:25] VITALS: BP 127/80; PULSE 73; RESP 20
[2018-11-29] MEDS: SPIRONOLACTONE 50 MG TAB PO SCH ×2 (06:46→17:54)
[2018-11-29] MEDS: METOCLOPRAMIDE 10 MG INJ IV SCH ×4 (06:47→17:54)
[2018-11-29] MEDS: INSULIN ASPART [NOVOLOG] 3 ML PEN SC SCH ×4 (07:50→21:00)
[2018-11-29] MEDS: LACTOBACILLUS RHAMNOSUS CAP PO SCH ×2 (08:42→20:42)
[2018-11-29] MEDS: FUROSEMIDE 20 MG TAB PO SCH (08:42)
[2018-11-29] MEDS: THIAMINE 100 MG TAB PO SCH (08:42)
[2018-11-29] MEDS: NADOLOL 40 MG TAB PO SCH (08:43)
[2018-11-29] MEDS: LACTULOSE 30ML CUP PO SCH (08:43)
--- NOTE | 2018-11-29 12:34 | PN ---
Date/Time of Note Date/Time of Note DATE: 11/29/18 TIME: 12:32 Assessment/Plan VTE Prophylaxis Risk score (from Ns)>0 risk: 3 SCD applied (from Ns): Yes SCD contraindicated: low risk/ambulating Pharmacological prophylaxis: LMWH Lines/Catheters IV Catheter Type (from [facility]): Saline Lock Urinary Cath still in place: No Assessment/Plan Hospital Course A/P 1. Decompensated cirrhosis, stable, follow-up ascites path & rule out SBP. MRI/ Pet Liver? 2. Ascites sp paracentesis. culture -ve. Cytology #2: appears positive for malignant cells. 3. Past alcoholism 4. Anemia 5. History of upper GI bleed/ ulcers. s/p egd/ bx w Dr Han 6. Diabetes 7. Metabolic syndrome 8. Constipation 9. [place] stomach '16, sp neoadjuvant chemo; Her2 negative. 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 Consulted Dr Barbosa/Kamran 10. Pulmonary/hepatic nodules subcentimeter, Unclear etiology. 11. Possible Shepard 12. Chronic liver disease [place]: Portal hypertension/thrombocytopenia/ascites; adjust lactulose 13. Esophagitison EGD. Stomach biopsies taken. 14. Esophageal varices no active bleeding 15. Abd pain r/o SBP. vs due to ascites Subjective: events noted; no fever 11/26 intermittent abdominal pain with no known aggravating or relieving factors. Poor appetite. Positive vomiting overnight. 11/27: Less discomfort. No fever. Tolerating diet. I updated him and his regarding the liver damage 11/28: No abdominal pain fever. Hungry. 11/29: Feels okay okay. Occasional abdominal pain. No fever nausea vomiting, or GI bleed Objective: Vital signs stable Physical exam No pallor icterus Regular no m/r/g Clear Bs diminished, nt, nd; no r/r/g edema Result Diagram: 11/27/1842311/27/18423 Results 24hrs Laboratory Tests Test 11/28/18 13:24 11/28/18 18:02 11/28/18 20:47 11/29/18 08:32 Bedside Glucose 119 106 154 105 Test 11/29/18 11:53 Bedside Glucose 135 Exam/Review of Systems Exam Vitals Vital Signs Date Temp Pulse Resp B/P (MAP) Pulse Ox O2 O2 Flow FiO2 Time Delivery Rate 11/29/18 98.6 73 20 127/80 98 Room Air 02:25 (96) Intake and Output 11/28/18 11/28/18 11/29/18 1515:00 23:00 07:00 IntakeIntake Total 360 ml 480 ml 300 ml BalanceBalance 360 ml 480 ml 300 ml Results Results 24hrs Laboratory Tests Test 11/28/18 13:24 11/28/18 18:02 11/28/18 20:47 11/29/18 08:32 Bedside Glucose 119 106 154 105 Test 11/29/18 11:53 Bedside Glucose 135 Medications Medication Current Medications IV Flush (NS 3 ml) 3 ml PER PROTOCOL IV ; Start 11/24/18 at 13:30 Ondansetron HCl (Zofran Inj) 4 mg Q6H PRN IV NAUSEA/VOMITING Last administered on 11/25/18at 14:03; Admin Dose 4 MG; Start 11/24/18 at 13:30 Hydralazine HCl (Apresoline) 10 mg Q6H PRN IV SBP>160; Start 11/24/18 at 13:30 Insulin Aspart (Novolog Insulin Pen) NOVOLOG *MILD* ALGORITHM WITH MEALS BEDTIME SC ; Start 11/24/18 at 17:55 Metoclopramide HCl (Reglan) 5 mg Q6 IV Last administered on 11/29/18at 12:13; Admin Dose 5 MG; Start 11/24/18 at 18:00 Miscellaneous Information 1 ea NOTE XX ; Start 11/24/18 at 13:30 Glucose (Glutose) 15 gm Q15M PRN PO DECREASED GLUCOSE; Start 11/24/18 at 13:30 Glucose (Glutose) 22.5 gm Q15M PRN PO DECREASED GLUCOSE; Start 11/24/18 at 13:30 Dextrose (D50w Syringe) 25 ml Q15M PRN IV DECREASED GLUCOSE; Start 11/24/18 at 13:30 Dextrose (D50w Syringe) 50 ml Q15M PRN IV DECREASED GLUCOSE; Start 11/24/18 at 13:30 Glucagon (Glucagen) 1 mg Q15M PRN IM DECREASED GLUCOSE; Start 11/24/18 at 13:30 Glucose (Glutose) 15 gm Q15M PRN BUCCAL DECREASED GLUCOSE; Start 11/24/18 at 13:30 Nadolol (Corgard) 20 mg DAILY PO Last administered on 11/29/18 08:43; Admin Dose 20 MG; Start 11/25/18 at 14:30 Lactobacillus Acidophilus/ Rhamnosus (Culturelle) 1 cap BID PO Last administered on 11/29/18 08:42; Admin Dose 1 CAP; Start 11/25/18 at 21:00 Famotidine (Pepcid) 20 mg HS PO Last administered on 11/28/18 20:47; Admin Dose 20 MG; Start 11/25/18 at 21:00 Ceftriaxone Sodium 50 ml @ 100 mls/hr Q24H IVPB Last administered on 11/28/18 15:02; Admin Dose 100 MLS/HR; Start 11/25/18 at 14:00 Acetaminophen/ Hydrocodone Bitart ([place] (10/325)) 1 tab Q4H PRN PO MODERATE PAIN LEVEL 4-6 Last administered on 11/29/18 01:33; Admin Dose 1 TAB; Start 11/25/18 at 15:30 Spironolactone (Aldactone) 50 mg BID DIURETICS PO Last administered on 11/29/18 06:46; Admin Dose 50 MG; Start 11/25/18 at 18:00 Furosemide (Lasix) 20 mg DAILY PO Last administered on 11/29/18 08:42; Admin Dose 20 MG; Start 11/26/18 at 09:00 Lactulose (Enulose) 20 gm DAILY PO Last administered on 11/29/18 08:43; Admin Dose 20 GM; Start 11/29/18 at 09:00 Thiamine HCl (Vitamin B1) 100 mg DAILY PO Last administered on 11/29/18 08:42; Admin Dose 100 MG; Start 11/28/18 at 14:00 JANIE CARNEY MD Nov 29, 2018 12:34
[2018-11-29] MEDS: CEFTRIAXONE 1 GM/50 ML (PMX) 50 ML IVPB SCH (13:27)
[2018-11-29 15:09] VITALS: BP 129/75; PULSE 77; RESP 19
--- NOTE | 2018-11-29 15:18 | CONS ---
Assessment/Plan Assessment/Plan Hospital Course (Demo Recall) 58 yo who has h/o gastric ca s/p FOLFOX 2 years ago was discharged from our practice due to his daughter stealing script pads he has not seen anyone since, per pt, I have left [facility] for family to call so we can get any interim info now unfortunately with recurrent gastric ca--malignant ascites -check CT chest and bone scan and CT AP for full staging -check MSI and PDL1 status on path ( I will order) it's been 2 years since FOLFOX so can technically retreat with FOLFOX usually Her 2 status is concordant with initial diagnosis unlike breast cancer in which her 2 status can change unfortunately given the history of prescription pad stealing we cannot treat him in our practice but will assist wit care until he can be appropriately transitioned to another oncologist Thank you Dr Joseph for allowing me to see this pleasant but unfortunate gentleman Consultation Date/Type/Reason Admit Date/Time Nov 24, 2018 at 13:13 Date/Time of Note DATE: 11/29/18 TIME: 15:15 Hx of Present Illness Asked to see by Dr Tyler for concern for recurrent malignancy. Last seen in our practice Jun 2017. 58yearold male who presented in June 2016 with melena and hematemesis, 2030lb weight loss and abdominal pain. He was initially admitted to [facility] and then transferred to [facility] due to insurance reasons. He was complaining of melanotic stools at home, as well as generalized weakness, fatigue, shortness of breath, and was found to have symptomatic anemia with hemoglobin down to 6.1. He underwent an EGD, which revealed gastric ulcers as the cause of the bleeding with multiple biopsies obtained. His pathology from the biopsies returned demonstrating diffuse type adenocarcinoma from the stomach ulcer biopsy. PT has since been diagnosed with gastric adenocarcinoma, HER2 negative, with nonspecific lung and liver lesions. Pt received his 8th cycle of FOLFOX on 01/03/2017 with MRI abdomen 01/19/2017 consistent with regenerative nodules in the setting of cirrhosis. CT chest, abdomen, and pelvis 01/08/2017 had shown stable groundglass pulmonary nodules in the right upper lobe, which remained nonspecific and postinflammatory with no new pulmonary nodules. EGD done 04/2017 reveals no evidence of malignancy but evidence of H. Pylori. The patient was seen by Dr. Ken and is to have surgical gastrectomy. It has been noted patient's daughter has stolen our prescription pads and is filling medication in Dr Barbosa's. This was told to the patient and he was informed we can no longer treat him. He was readmitted with abdominal pain, distention, constipation, nausea, and vo miting, who was found to have large volume ascites and will be admitted to inpatient setting for further treatment and evaluation. He is s/p EGD and paracentesis and both conform malignant cells Dr Barbosa believes that pt has new oncologist pt pt stated he has not seen anyone since seeing her last 2 years ago I have left a msg for his family to call Constitutional: no complaints, improved Eyes: no complaints ENT: no complaints Respiratory: no complaints Gastrointestinal: pain Genitourinary: no complaints Musculoskeletal: no complaints Skin: no complaints Past Medical History Home Meds Discontinued Reported Medications Metoclopramide Hcl* (Metoclopramide Hcl*) 10 Mg Tablet, 10 MG PO TID PRN for PRN, TAB 06/29/16 Pantoprazole* (Pantoprazole*) 40 Mg Tablet., 40 MG PO DAILY, TAB 06/29/16 Metformin Hcl* (Metformin Hcl*) 1,000 Mg Tablet, 1000 MG PO WITH BREAKFAST DINNE, #60 TAB 06/29/16 Hydrocodone/Acetaminophen ([place] 10-325 Tablet) 1 Each Tablet, 1 EACH PO Q4 for PAIN PRN, TAB 06/29/16 Discontinued Scripts Hydrocodone/Acetaminophen ([place] 5-325 Tablet) 1 Each Tablet, 1 TAB PO Q6H PRN for PAIN, #15 TAB Prov:ЮЛИЯOS,NELLSTOLOS A. DO 11/24/18 Polyethylene Glycol* (Miralax*) 17 Gm Powd.pack, 17 GM PO DAILY, #7 Prov:LEKKOS,APOSTOLOS A. DO 11/24/18 Polyethylene Glycol* (Miralax*) 17 Gm Powd.pack, 17 GM PO DAILY, #7 Prov:GLORY MURPHY DO 06/29/16 Medications Current Medications IV Flush (NS 3 ml) 3 ml PER PROTOCOL IV ; Start 11/24/18 at 13:30 Ondansetron HCl (Zofran Inj) 4 mg Q6H PRN IV NAUSEA/VOMITING Last administered on 11/25/18at 14:03; Admin Dose 4 MG; Start 11/24/18 at 13:30 Hydralazine HCl (Apresoline) 10 mg Q6H PRN IV SBP>160; Start 11/24/18 at 13:30 Insulin Aspart (Novolog Insulin Pen) NOVOLOG *MILD* ALGORITHM WITH MEALS BEDTIME SC ; Start 11/24/18 at 17:55 Metoclopramide HCl (Reglan) 5 mg Q6 IV Last administered on 11/29/18at 12:13; Admin Dose 5 MG; Start 11/24/18 at 18:00 Miscellaneous Information 1 ea NOTE XX ; Start 11/24/18 at 13:30 Glucose (Glutose) 15 gm Q15M PRN PO DECREASED GLUCOSE; Start 11/24/18 at 13:30 Glucose (Glutose) 22.5 gm Q15M PRN PO DECREASED GLUCOSE; Start 11/24/18 at 13:30 Dextrose (D50w Syringe) 25 ml Q15M PRN IV DECREASED GLUCOSE; Start 11/24/18 at 13:30 Dextrose (D50w Syringe) 50 ml Q15M PRN IV DECREASED GLUCOSE; Start 11/24/18 at 13:30 Glucagon (Glucagen) 1 mg Q15M PRN IM DECREASED GLUCOSE; Start 11/24/18 at 13:30 Glucose (Glutose) 15 gm Q15M PRN BUCCAL DECREASED GLUCOSE; Start 11/24/18 at 13:30 Nadolol (Corgard) 20 mg DAILY PO Last administered on 11/29/18 08:43; Admin Dose 20 MG; Start 11/25/18 at 14:30 Lactobacillus Acidophilus/ Rhamnosus (Culturelle) 1 cap BID PO Last administered on 11/29/18 08:42; Admin Dose 1 CAP; Start 11/25/18 at 21:00 Famotidine (Pepcid) 20 mg HS PO Last administered on 11/28/18 20:47; Admin Dose 20 MG; Start 11/25/18 at 21:00 Ceftriaxone Sodium 50 ml @ 100 mls/hr Q24H IVPB Last administered on 11/29/18 13:27; Admin Dose 100 MLS/HR; Start 11/25/18 at 14:00 Acetaminophen/ Hydrocodone Bitart ([place] (10/325)) 1 tab Q4H PRN PO MODERATE PAIN LEVEL 4-6 Last administered on 11/29/18 13:32; Admin Dose 1 TAB; Start 11/25/18 at 15:30 Spironolactone (Aldactone) 50 mg BID DIURETICS PO Last administered on 11/29/18 06:46; Admin Dose 50 MG; Start 11/25/18 at 18:00 Furosemide (Lasix) 20 mg DAILY PO Last administered on 11/29/18 08:42; Admin Dose 20 MG; Start 11/26/18 at 09:00 Lactulose (Enulose) 20 gm DAILY PO Last administered on 11/29/18 08:43; Admin Dose 20 GM; Start 11/29/18 at 09:00 Thiamine HCl (Vitamin B1) 100 mg DAILY PO Last administered on 11/29/18 08:42; Admin Dose 100 MG; Start 11/28/18 at 14:00 Allergies: Coded Allergies: naproxen (Unverified Allergy, Mild, itchy, 11/24/18) Social History Alcohol Use: sober Smoking Status: Never smoker Drug Use: none Exam/Review of Systems Exam Vitals Vital Signs Date Temp Pulse Resp B/P (MAP) Pulse Ox O2 O2 Flow FiO2 Time Delivery Rate 11/29/18 98.6 73 20 127/80 98 Room Air 02:25 (96) Intake and Output 11/28/18 11/28/18 11/29/18 1515:00 23:00 07:00 IntakeIntake Total 360 ml 480 ml 300 ml BalanceBalance 360 ml 480 ml 300 ml Constitutional: frail Head: normocephalic, atraumatic Eyes: nl conjunctiva, EOMI, nl lids, nl sclera, PERRL Gastrointestinal: ascites, distended, firm Musculoskeletal: nl extremities to inspection, nl gait and stance Results Result Diagram: 11/27/184 11/27/184 Results 24hrs Laboratory Tests Test 11/28/18 18:02 11/28/18 20:47 11/29/18 08:32 11/29/18 11:53 Bedside Glucose 106 154 105 135 Medications Medication Current Medications IV Flush (NS 3 ml) 3 ml PER PROTOCOL IV ; Start 11/24/18 at 13:30 Ondansetron HCl (Zofran Inj) 4 mg Q6H PRN IV NAUSEA/VOMITING Last administered on 11/25/18at 14:03; Admin Dose 4 MG; Start 11/24/18 at 13:30 Hydralazine HCl (Apresoline) 10 mg Q6H PRN IV SBP>160; Start 11/24/18 at 13:30 Insulin Aspart (Novolog Insulin Pen) NOVOLOG *MILD* ALGORITHM WITH MEALS BEDTIME SC ; Start 11/24/18 at 17:55 Metoclopramide HCl (Reglan) 5 mg Q6 IV Last administered on 11/29/18at 12:13; Admin Dose 5 MG; Start 11/24/18 at 18:00 Miscellaneous Information 1 ea NOTE XX ; Start 11/24/18 at 13:30 Glucose (Glutose) 15 gm Q15M PRN PO DECREASED GLUCOSE; Start 11/24/18 at 13:30 Glucose (Glutose) 22.5 gm Q15M PRN PO DECREASED GLUCOSE; Start 11/24/18 at 13:30 Dextrose (D50w Syringe) 25 ml Q15M PRN IV DECREASED GLUCOSE; Start 11/24/18 at 13:30 Dextrose (D50w Syringe) 50 ml Q15M PRN IV DECREASED GLUCOSE; Start 11/24/18 at 13:30 Glucagon (Glucagen) 1 mg Q15M PRN IM DECREASED GLUCOSE; Start 11/24/18 at 13:30 Glucose (Glutose) 15 gm Q15M PRN BUCCAL DECREASED GLUCOSE; Start 11/24/18 at 13:30 Nadolol (Corgard) 20 mg DAILY PO Last administered on 11/29/18 08:43; Admin Dose 20 MG; Start 11/25/18 at 14:30 Lactobacillus Acidophilus/ Rhamnosus (Culturelle) 1 cap BID PO Last administered on 11/29/18 08:42; Admin Dose 1 CAP; Start 11/25/18 at 21:00 Famotidine (Pepcid) 20 mg HS PO Last administered on 11/28/18 20:47; Admin Do se 20 MG; Start 11/25/18 at 21:00 Ceftriaxone Sodium 50 ml @ 100 mls/hr Q24H IVPB Last administered on 11/29/18 13:27; Admin Dose 100 MLS/HR; Start 11/25/18 at 14:00 Acetaminophen/ Hydrocodone Bitart ([place] (10/325)) 1 tab Q4H PRN PO MODERATE PAIN LEVEL 4-6 Last administered on 11/29/18 13:32; Admin Dose 1 TAB; Start 11/25/18 at 15:30 Spironolactone (Aldactone) 50 mg BID DIURETICS PO Last administered on 11/29/18 06:46; Admin Dose 50 MG; Start 11/25/18 at 18:00 Furosemide (Lasix) 20 mg DAILY PO Last administered on 11/29/18 08:42; Admin Dose 20 MG; Start 11/26/18 at 09:00 Lactulose (Enulose) 20 gm DAILY PO Last administered on 11/29/18 08:43; Admin Dose 20 GM; Start 11/29/18 at 09:00 Thiamine HCl (Vitamin B1) 100 mg DAILY PO Last administered on 11/29/18 08:42; Admin Dose 100 MG; Start 11/28/18 at 14:00 CAMERON SUBRAMANIAN Nov 29, 2018 15:18
--- NOTE | 2018-11-29 15:59 | CONS ---
Assessment/Plan Assessment/Plan Assessment/Plan (Daily) Assessment/Plan (Daily) 1. Cirrhosis of liver. 2. Portal hypertension. Responding well to diuretics 3. Ascites. Ascitic fluid cytology was positive for malignancy 4. Diabetes mellitus. 5. Constipation. 6. 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 If negative for malignancy then continue with diuretics Oncology consult P.o. fluid restriction 2 g sodium diet Consultation Date/Type/Reason Admit Date/Time Nov 24, 2018 at 13:13 Initial Consult Date Date/Time of Note DATE: 11/29/18 TIME: 15:58 24 HR Interval Summary Free Text/Dictation No nausea no vomiting Exam/Review of Systems Exam Vitals Vital Signs Date Temp Pulse Resp B/P (MAP) Pulse Ox O2 O2 Flow FiO2 Time Delivery Rate 11/29/18 98.6 73 20 127/80 98 Room Air 02:25 (96) Intake and Output 11/28/18 11/28/18 11/29/18 1515:00 23:00 07:00 IntakeIntake Total 360 ml 480 ml 300 ml BalanceBalance 360 ml 480 ml 300 ml Constitutional: alert, oriented, well developed Psych: no complaints, nl mood/affect Head: normocephalic, atraumatic Eyes: nl conjunctiva, EOMI, nl lids, nl sclera, PERRL ENMT: nl external ears & nose, nl lips & teeth, nl nasal mucosa & septum Neck: supple, non-tender Respiratory: clear to auscultation, normal air movement Cardiovascular: regular rate and rhythm, nl pulses Gastrointestinal: soft, nl liver, spleen, non-tender Musculoskeletal: nl extremities to inspection, nl gait and stance Extremities: normal pulses Neurological: 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 II-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 intact, nl mental status, nl speech, nl strength Skin: nl turgor; No rash or lesions Lymph: nl lymph nodes Results Result Diagram: 11/27/184 11/27/18423 Results 24hrs Laboratory Tests Test 11/28/18 18:02 11/28/18 20:47 11/29/18 08:32 11/29/18 11:53 Bedside Glucose 106 154 105 135 Medications Medication Current Medications IV Flush (NS 3 ml) 3 ml PER PROTOCOL IV ; Start 11/24/18 at 13:30 Ondansetron HCl (Zofran Inj) 4 mg Q6H PRN IV NAUSEA/VOMITING Last administered on 11/25/18at 14:03; Admin Dose 4 MG; Start 11/24/18 at 13:30 Hydralazine HCl (Apresoline) 10 mg Q6H PRN IV SBP>160; Start 11/24/18 at 13:30 Insulin Aspart (Novolog Insulin Pen) NOVOLOG *MILD* ALGORITHM WITH MEALS BEDTIME SC ; Start 11/24/18 at 17:55 Metoclopramide HCl (Reglan) 5 mg Q6 IV Last administered on 11/29/18at 12:13; Admin Dose 5 MG; Start 11/24/18 at 18:00 Miscellaneous Information 1 ea NOTE XX ; Start 11/24/18 at 13:30 Glucose (Glutose) 15 gm Q15M PRN PO DECREASED GLUCOSE; Start 11/24/18 at 13:30 Glucose (Glutose) 22.5 gm Q15M PRN PO DECREASED GLUCOSE; Start 11/24/18 at 13:30 Dextrose (D50w Syringe) 25 ml Q15M PRN IV DECREASED GLUCOSE; Start 11/24/18 at 13:30 Dextrose (D50w Syringe) 50 ml Q15M PRN IV DECREASED GLUCOSE; Start 11/24/18 at 13:30 Glucagon (Glucagen) 1 mg Q15M PRN IM DECREASED GLUCOSE; Start 11/24/18 at 13:30 Glucose (Glutose) 15 gm Q15M PRN BUCCAL DECREASED GLUCOSE; Start 11/24/18 at 13:30 Nadolol (Corgard) 20 mg DAILY PO Last administered on 11/29/18at 08:43; Admin Dose 20 MG; Start 11/25/18 at 14:30 Lactobacillus Acidophilus/ Rhamnosus (Culturelle) 1 cap BID PO Last administered on 11/29/18at 08:42; Admin Dose 1 CAP; Start 11/25/18 at 21:00 Famotidine (Pepcid) 20 mg HS PO Last administered on 11/28/18at 20:47; Admin Dose 20 MG; Start 11/25/18 at 21:00 Ceftriaxone Sodium 50 ml @ 100 mls/hr Q24H IVPB Last administered on 11/29/18at 13:27; Admin Dose 100 MLS/HR; Start 11/25/18 at 14:00 Acetaminophen/ Hydrocodone Bitart ([place] (10/325)) 1 tab Q4H PRN PO MODERATE PAIN LEVEL 4-6 Last administered on 11/29/18 13:32; Admin Dose 1 TAB; Start 11/25/18 at 15:30 Spironolactone (Aldactone) 50 mg BID DIURETICS PO Last administered on 11/29/18 06:46; Admin Dose 50 MG; Start 11/25/18 at 18:00 Furosemide (Lasix) 20 mg DAILY PO Last administered on 11/29/18 08:42; Admin Dose 20 MG; Start 11/26/18 at 09:00 Lactulose (Enulose) 20 gm DAILY PO Last administered on 11/29/18 08:43; Admin Dose 20 GM; Start 11/29/18 at 09:00 Thiamine HCl (Vitamin B1) 100 mg DAILY PO Last administered on 11/29/18 08:42; Admin Dose 100 MG; Start 11/28/18 at 14:00 DEIDRE REYNOLDS MD Nov 29, 2018 15:59
[2018-11-29] MEDS ORDERED: IOHEXOL 14.3 MG(I)/ML (ADULT) BTL PO ONE (17:30)
[2018-11-29] MEDS ORDERED: IOHEXOL 300MG/ML 150 ML BTL ONE (19:11)
[2018-11-29] MEDS ORDERED: SOD CHLORIDE 0.9% 100 ML ONE (19:11)
[2018-11-29 19:40] VITALS: BP 108/72; PULSE 85; RESP 20
[2018-11-29] MEDS: FAMOTIDINE 20 MG TAB PO SCH (20:42)
[2018-11-29] MEDS: ONDANSETRON 4 MG INJ IV PRN (20:46)
[2018-11-30 02:20] VITALS: BP 137/78; PULSE 83; RESP 20
[2018-11-30] MEDS: METOCLOPRAMIDE 10 MG INJ IV SCH ×4 (06:42→18:10)
[2018-11-30] MEDS: SPIRONOLACTONE 50 MG TAB PO SCH ×2 (06:42→18:14)
[2018-11-30] MEDS: INSULIN ASPART [NOVOLOG] 3 ML PEN SC SCH ×3 (07:50→18:08)
[2018-11-30 08:00] VITALS: BP 117/81; PULSE 75; RESP 18
[2018-11-30] MEDS: THIAMINE 100 MG TAB PO SCH (09:00)
[2018-11-30] MEDS ORDERED: DIPHENHYDRAMINE 50 MG INJ IV ONE (09:00)
[2018-11-30] MEDS: NADOLOL 40 MG TAB PO SCH (09:32)
[2018-11-30] MEDS: LACTOBACILLUS RHAMNOSUS CAP PO SCH (09:32)
[2018-11-30] MEDS: FUROSEMIDE 20 MG TAB PO SCH (09:32)
[2018-11-30] MEDS: LACTULOSE 30ML CUP PO SCH (11:12)
--- NOTE | 2018-11-30 12:07 | PDOCDIS ---
Discharge Instructions CONDITION [id number] Patient Condition: [id number] Stable HOME CARE INSTRUCTIONS: [id number] Diet Instructions: [id number] Reduced Sodium ACTIVITY: [id number] Activity Restrictions: [id number] No Restrictions Slowly Increase Activity Do not Drive [id number] Bathing Restrictions: Asyjc7y Shower FOLLOW UP/APPOINTMENTS Follow-up Plan appt Primary & Dr Barbosa 1wk Dr Han 2wks JANIE CARNEY MD Nov 30, 2018 12:07
[2018-11-30] MEDS ORDERED: FAMO20TA18 PO (12:12)
[2018-11-30] MEDS ORDERED: LACT20SO2 PO (12:12)
[2018-11-30] MEDS ORDERED: LACT1CAP28 PO (12:12)
[2018-11-30] MEDS ORDERED: NADO40TA18 PO (12:12)
[2018-11-30] MEDS ORDERED: THIA100T56 PO (12:12)
[2018-11-30] MEDS ORDERED: SPIR50TA PO (12:12)
--- NOTE | 2018-11-30 12:58 | DS ---
Date/Time of Note Date/Time of Note DATE: 11/30/18 TIME: 12:55 Discharge Summary Admission/Discharge Info Admit Date/Time Nov 24, 2018 at 13:13 Discharge Date/Time Patient Condition: Stable Consults Dr Emely Barbosa/ Kamran Procedures Paracentesis#2 MICROSCOPIC DIAGNOSIS: Paracentesis fluid for cytology: -- Suspicious for cytologically malignant cells. EGD -Esophagitis, varices with no bleeding MICROSCOPIC DIAGNOSIS: Stomach, biopsy: -- Adenocarcinoma, moderately differentiated, intestinal type with signet ring cells. COMMENT: This case was reviewed by Dr. Preciado who concurs. Dr. Han was notified on 11/27/18. CT scan abdomen pelvis with contrast IMPRESSION: Interval partial evacuation ascites. Nodularity omentum highly suspicious for peritoneal carcinomatosis. Correlation with results from recent paracentesis is recommended for more definitive diagnosis. Cirrhotic liver. No mass. Question primary mass body stomach - clinical correlation suggested. Visible but nonpathologically enlarged nodes gastrohepatic ligament with tiny precardiac lymph nodes. Bone scanpending CT scan of chest IMPRESSION: 1. No evidence of central pulmonary emboli. Peripheral pulmonary arteries difficult to assess due to dilute opacification and respiratory motion, though no definite filling defect identified allowing for these constraints. 2. Interval enlargement of retrosternal and left internal mammary lymph nodes, most suspicious for metastatic lymph nodes. 3. Small right pleural effusion and trace left pleural effusion. 4. Ankylosing spondylitis as evidenced by findings described above. Hx of Present Illness 58-year-old gentleman admitted with ascites Hospital Course Hospitalist coverage/hospital course with ascites decompensated cirrhosis. Therapeutic and diagnostic paracentesis done. The second specimen appears to so abnormal cytology. Patient was consulted with GI. EGD done. No active bleed. Varices seen. Biopsy returned adenocarcinoma stomach. It appears the patient has had chemotherapy 2 years ago. This is probably recurrent cancer with peritoneal carcinomatosis at present. Patient was updated. 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 Therefore I left him a short message without any specific details. Recommended he follow-up with GI in 2 weeks recommended follow-up with Dr. Barbosa in [address] chest abdomen pelvis done. Bone scan pending additionally. A/P 1. Decompensated cirrhosis, stable, follow-up ascites path & rule out SBP. MRI/ Pet Liver? 2. Ascites sp paracentesis. culture -ve. Cytology #2: appears positive for malignant cells. 3. Past alcoholism 4. Anemia 5. History of upper GI bleed/ ulcers. s/p egd/ bx w Dr Han 6. Diabetes 7. Metabolic syndrome 8. Constipation 9. AdenoCa stomach '16, sp neoadjuvant chemo; Her2 negative. 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 Consulted Dr Barbosa/Kamran 10. Pulmonary/ hepatic nodules, subcentimeter, Unclear etiology. 11. Possible Shepard 12. Chronic liver disease [place]: Portal hypertension/thrombocytopenia/ascites; adjust lactulose 13. Esophagitison EGD. Stomach biopsies taken. 14. Esophageal varices no active bleeding 15. Abd pain r/o SBP. vs due to ascites Subjective: events noted; no fever 11/26 intermittent abdominal pain with no known aggravating or relieving factors. Poor appetite. Positive vomiting overnight. 11/27: Less discomfort. No fever. Tolerating diet. I updated him and his regarding the liver damage 11/28: No abdominal pain fever. Hungry. 11/29: Feels okay okay. Occasional abdominal pain. No fever nausea vomiting, or GI bleed / no distress Home Meds Active Scripts Lactobacillus Rhamnosus GG (Culturelle) 1 Each Capsule, 1 CAP PO BID for 7 Days, #14 CAP Prov:JANIE CARNEY MD 11/30/18 Thiamine* (Vitamin B-1*) 100 Mg Tablet, 100 MG PO DAILY for 30 Days, #30 TAB Prov:JANIE CARNEY MD 11/30/18 Famotidine* (Famotidine*) 20 Mg Tablet, 20 MG PO HS for 10 Days, #10 TAB otc Prov:JANIE CARNEY MD 11/30/18 Lactulose* (Lactulose*) 20 Gm/30 Ml Solution, 20 GM PO DAILY for 14 Days, #14 2 Refills Prov:JANIE CARNEY MD 11/30/18 Spironolactone* (Aldactone*) 50 Mg Tablet, 50 MG PO BID DIURETICS for 14 Days, #14 TAB Prov:JANIE CARNEY MD 11/30/18 Nadolol (Corgard) 40 Mg Tablet, 20 MG PO DAILY for 14 Days, #14 TAB Prov:JANIE CARNEY MD 11/30/18 Discontinued Reported Medications Metoclopramide Hcl* (Metoclopramide Hcl*) 10 Mg Tablet, 10 MG PO TID PRN for PRN, TAB 06/29/16 Pantoprazole* (Pantoprazole*) 40 Mg Tablet.dr, 40 MG PO DAILY, TAB 06/29/16 Metformin Hcl* (Metformin Hcl*) 1,000 Mg Tablet, 1000 MG PO WITH BREAKFAST DINNE, #60 TAB 06/29/16 Hydrocodone/Acetaminophen ([place] 10-325 Tablet) 1 Each Tablet, 1 EACH PO Q4 for PAIN PRN, TAB 06/29/16 Discontinued Scripts Hydrocodone/Acetaminophen ([place] 5-325 Tablet) 1 Each Tablet, 1 TAB PO Q6H PRN for PAIN, #15 TAB Prov:LEKKOS,APOSTOLOS A. DO 11/24/18 Polyethylene Glycol* (Miralax*) 17 Gm Powd.pack, 17 GM PO DAILY, #7 Prov:LEKKOS,APOSTOLOS A. DO 11/24/18 Polyethylene Glycol* (Miralax*) 17 Gm Powd.pack, 17 GM PO DAILY, #7 Prov:GLORY MURPHY DO 06/29/16 Follow-up Plan appt Primary & Dr Barbosa 1wk Dr Han 2wks Primary Care Provider Vimal Panchal MD Time spent on discharge: > 30 minutes Pending Labs Laboratory Tests Test 11/29/18 16:42 11/29/18 17:53 11/29/18 20:42 11/30/18 08:07 Carcinoembryoni 0.6 c Antigen ng/ml (0.0-5.0) Bedside 129 158 123 Glucose mg/dL (70-220) mg/dL (70-220) mg/dL (70-220) Test 11/30/18 11:49 Bedside 167 Glucose mg/dL (70-220) JANEI CARNEY MD Nov 30, 2018 12:58
[2018-11-30 13:29] VITALS: BP 106/70; PULSE 80; RESP 18
[2018-11-30] MEDS: CEFTRIAXONE 1 GM/50 ML (PMX) 50 ML IVPB SCH (14:15)
--- NOTE | 2018-11-30 14:15 | CONS ---
Assessment/Plan Assessment/Plan Assessment/Plan (Daily) Assessment/Plan (Daily) Assessment/Plan (Daily) 1. Cirrhosis of liver. 2. Portal hypertension. Responding well to diuretics 3. Ascites. Ascitic fluid cytology was positive for malignancy 4. Diabetes mellitus. 5. Constipation. 6. 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 If negative for malignancy then continue with diuretics Oncology consult P.o. fluid restriction 2 g sodium diet Patient will be followed by oncologist as an outpatient Consultation Date/Type/Reason Admit Date/Time Nov 24, 2018 at 13:13 Initial Consult Date Date/Time of Note DATE: 11/30/18 TIME: 14:14 24 HR Interval Summary Constitutional: no complaints, improved Exam/Review of Systems Exam Vitals Vital Signs Date Temp Pulse Resp B/P (MAP) Pulse Ox O2 O2 Flow FiO2 Time Delivery Rate 11/30/18 98.6 80 18 106/70 96 13:29 (82) 11/30/18 Room Air 02:20 Intake and Output 11/29/18 11/29/18 11/30/18 1515:00 23:00 07:00 IntakeIntake Total 410 ml 480 ml 250 ml BalanceBalance 410 ml 480 ml 250 ml Constitutional: alert, oriented, well developed Psych: no complaints, nl mood/affect Head: normocephalic, atraumatic Eyes: nl conjunctiva, EOMI, nl lids, nl sclera, PERRL ENMT: nl external ears & nose, nl lips & teeth, nl nasal mucosa & septum Neck: supple, non-tender Respiratory: clear to auscultation, normal air movement Cardiovascular: regular rate and rhythm, nl pulses Gastrointestinal: soft, nl liver, spleen, non-tender Musculoskeletal: nl extremities to inspection, nl gait and stance Extremities: normal pulses Neurological: BREAKFAST HOSTESS II-XII intact, nl mental status, nl speech, nl strength Skin: nl turgor; No rash or lesions Lymph: nl lymph nodes Results Result Diagram: 11/27/1842311/27/184 Results 24hrs Laboratory Tests Test 11/29/18 16:42 11/29/18 17:53 11/29/18 20:42 11/30/18 08:07 Carcinoembryonic 0.6 Antigen Bedside Glucose 129 158 123 Test 11/30/18 11:49 Bedside Glucose 167 Medications Medication Current Medications IV Flush (NS 3 ml) 3 ml PER PROTOCOL IV ; Start 11/24/18 at 13:30 Ondansetron HCl (Zofran Inj) 4 mg Q6H PRN IV NAUSEA/VOMITING Last administered on 11/29/18at 20:46; Admin Dose 4 MG; Start 11/24/18 at 13:30 Hydralazine HCl (Apresoline) 10 mg Q6H PRN IV SBP>160; Start 11/24/18 at 13:30 Insulin Aspart (Novolog Insulin Pen) NOVOLOG *MILD* ALGORITHM WITH MEALS BEDTIME SC ; Start 11/24/18 at 17:55 Metoclopramide HCl (Reglan) 5 mg Q6 IV Last administered on 11/30/18at 13:15; Admin Dose 5 MG; Start 11/24/18 at 18:00 Miscellaneous Information 1 ea NOTE XX ; Start 11/24/18 at 13:30 Glucose (Glutose) 15 gm Q15M PRN PO DECREASED GLUCOSE; Start 11/24/18 at 13:30 Glucose (Glutose) 22.5 gm Q15M PRN PO DECREASED GLUCOSE; Start 11/24/18 at 13:30 Dextrose (D50w Syringe) 25 ml Q15M PRN IV DECREASED GLUCOSE; Start 11/24/18 at 13:30 Dextrose (D50w Syringe) 50 ml Q15M PRN IV DECREASED GLUCOSE; Start 11/24/18 at 13:30 Glucagon (Glucagen) 1 mg Q15M PRN IM DECREASED GLUCOSE; Start 11/24/18 at 13:30 Glucose (Glutose) 15 gm Q15M PRN BUCCAL DECREASED GLUCOSE; Start 11/24/18 at 13:30 Nadolol (Corgard) 20 mg DAILY PO Last administered on 11/30/18at 09:32; Admin Dose 20 MG; Start 11/25/18 at 14:30 Lactobacillus Acidophilus/ Rhamnosus (Culturelle) 1 cap BID PO Last administered on 11/30/18at 09:32; Admin Dose 1 CAP; Start 11/25/18 at 21:00 Famotidine (Pepcid) 20 mg HS PO Last administered on 11/29/18at 20:42; Admin Dose 20 MG; Start 11/25/18 at 21:00 Ceftriaxone Sodium 50 ml @ 100 mls/hr Q24H IVPB Last administered on 11/29/18 13:27; Admin Dose 100 MLS/HR; Start 11/25/18 at 14:00 Acetaminophen/ Hydrocodone Bitart ([place] (10325)) 1 tab Q4H PRN PO MODERATE PAIN LEVEL 4-6 Last administered on 11/29/18 20:42; Admin Dose 1 TAB; Start 11/25/18 at 15:30 Spironolactone (Aldactone) 50 mg BID DIURETICS PO Last administered on 11/30/18 06:42; Admin Dose 50 MG; Start 11/25/18 at 18:00 Furosemide (Lasix) 20 mg DAILY PO Last administered on 11/30/18 09:32; Admin Dose 20 MG; Start 11/26/18 at 09:00 Lactulose (Enulose) 20 gm DAILY PO Last administered on 11/30/18 11:12; Admin Dose 20 GM; Start 11/29/18 at 09:00 Thiamine HCl (Vitamin B1) 100 mg DAILY PO Last administered on 11/29/18 08:42; Admin Dose 100 MG; Start 11/28/18 at 14:00 DEIDRE REYNOLDS MD Nov 30, 2018 14:15
== END 2018-11-30 18:50 | disposition home or self-care (01) | DRG 433 ==
LOC: E/R 08:53 → MS1 13:13
PROVIDERS: ADMIT Internal Medicine; ATTEND Internal Medicine
PROC: 0W9G3ZX Drainage of Peritoneal Cavity, Percutaneous Approach, Diagnostic (ICD-10-PCS; 2018-11-24)
PROC: 0W9G3ZX Drainage of Peritoneal Cavity, Percutaneous Approach, Diagnostic (ICD-10-PCS; 2018-11-26)
PROC: 0DB68ZX Excision of Stomach, Via Natural or Artificial Opening Endoscopic, Diagnostic (ICD-10-PCS; principal; 2018-11-26 12:00)
DX: K70.31 Alcoholic cirrhosis of liver with ascites (principal); K76.6 Portal hypertension; I85.10 Secondary esophageal varices without bleeding; C16.9 Malignant neoplasm of stomach, unspecified; D69.6 Thrombocytopenia, unspecified; E88.81 Metabolic syndrome and other insulin resistance; K31.84 Gastroparesis; E11.9 Type 2 diabetes mellitus without complications; D63.8 Anemia in other chronic diseases classified elsewhere; K59.00 Constipation, unspecified; Z79.4 Long term (current) use of insulin; Z87.11 Personal history of peptic ulcer disease; Z85.028 Personal history of other malignant neoplasm of stomach
CPT/HCPCS: 71260; 74178; 78306; 80053; 80061; 81001; 82040; 82042; 82140; 82378; 82945; 82962; 83036; 83735; 84100; 84155; 84157; 84443; 85025; 85610; 85730; 87070; 87086; 87102; 87116; 88104; 88107; 88305; 88341; 88342; 89051; A9503; J0696; J1815; J2405; J2765; P9047; Q9967

== ENCOUNTER 2018-12-06 12:06 | Inpatient (IN) | payer MEDICARE, OTHER ==
[~2018-12-06] VITALS: Ht 167.6 cm; Wt 63.8 kg
[~2018-12-06 12:06] MED LIST changes: +FAMO20TA18 PO; -HYDR-3980 PO; -HYDR-4011 PO; +LACT1CAP28 PO; +LACT20SO2 PO; -METF100010 PO; -METO10TA3 PO; +NADO40TA18 PO; -PANT40TA4 PO; -POLY17PO6 PO; +SPIR50TA PO; +THIA100T56 PO
[2018-12-06] MEDS ORDERED: SODIUM CHLORIDE 0.9% 1L BAG IV* STA (12:17)
[2018-12-06] MEDS ORDERED: ONDANSETRON 4 MG INJ IV STA (12:17)
[2018-12-06] MEDS ORDERED: morphine 4 MG/ML VIAL IV STA (12:17)
[2018-12-06] MEDS ORDERED: CEFTRIAXONE 1 GM/50 ML (PMX) 50 ML IVPB ONE (12:30)
[2018-12-06] MEDS ORDERED: PANTOPRAZOLE 40 MG INJ IV ONE (12:30)
[2018-12-06] MEDS ORDERED: METF100010 PO (13:26)
[2018-12-06] MEDS ORDERED: ASPI-817 PO (13:26)
[2018-12-06] MEDS ORDERED: INSU100I33 SC (13:27)
[2018-12-06] MEDS ORDERED: ONDANSETRON 4 MG INJ IV PRN (14:00)
[2018-12-06] MEDS ORDERED: ACETAMINOPHEN 325 MG TAB PO PRN (14:00)
--- NOTE | 2018-12-06 14:01 | ERD ---
ER Documentation Chief Complaint Chief Complaint ap with n/v/d, rapid heart rate HPI Patient is a 58-year-old male with gastric carcinoma who presents with abdominal pain, vomiting, and diarrhea. He also feels dizziness. He has had 2 paracentesis in the past. He has vomiting with black vomit and black stools. He said that he started last night with the symptoms. He has had subjective fevers. Upon review of old medical records the patient has recent admissions and was just recently discharged from the hospital. He does not currently have a primary doctor. ROS All systems reviewed and are negative except as per history of present illness. Medications Home Meds Active Scripts Lactobacillus Rhamnosus GG (Culturelle) 1 Each Capsule, 1 CAP PO BID for 7 Days, #14 CAP Prov:JANIE CARNEY MD 11/30/18 Thiamine* (Vitamin B-1*) 100 Mg Tablet, 100 MG PO DAILY for 30 Days, #30 TAB Prov:JANIE CARNEY MD 11/30/18 Famotidine* (Famotidine*) 20 Mg Tablet, 20 MG PO HS for 10 Days, #10 TAB otc Prov:JANIE CARNEY MD 11/30/18 Lactulose* (Lactulose*) 20 Gm/30 Ml Solution, 20 GM PO DAILY for 14 Days, #14 2 Refills Prov:JANIE CARNEY MD 11/30/18 Spironolactone* (Aldactone*) 50 Mg Tablet, 50 MG PO BID DIURETICS for 14 Days, #14 TAB Prov:JANIE CARNEY MD 11/30/18 Nadolol (Corgard) 40 Mg Tablet, 20 MG PO DAILY for 14 Days, #14 TAB Prov:JANIE CARNEY MD 11/30/18 Reported Medications Insulin Glargine,Hum.rec.anlog (Basaglar Kwikpen U-100) 100 Unit/1 Ml Insuln.pen, 20 UNIT SC QHS, EA 12/06/18 Metformin Hcl* (Metformin Hcl*) 1,000 Mg Tablet, 1000 MG PO WITH BREAKFAST DINNE, #60 TAB 12/06/18 Aspirin* (Aspirin* EC) 81 Mg Tablet.dr, 81 MG PO DAILY, TAB 12/06/18 Allergies Allergies: Coded Allergies: naproxen (Unverified Allergy, Mild, itchy, 12/06/18) PMhx/Soc History of Surgery: Yes (Rt sided port-a-cath) Anesthesia Reaction: No Hx Neurological Disorder: No Hx Respiratory Disorders: No Hx Cardiac Disorders: Yes (HTN, hyperlipidemia) Hx Psychiatric Problems: No Hx Miscellaneous Medical Probl: Yes (DM 2, anemia, cirrhosis of the liver,adenocarcinoma of the stomach) Hx Alcohol Use: No (none for past 4 years) Hx Substance Use: No Hx Tobacco Use: No Smoking Status: Never smoker FmHx Family History: No diabetes Physical Exam Vitals Vital Signs Date Temp Pulse Resp B/P (MAP) Pulse Ox O2 O2 Flow FiO2 Time Delivery Rate 12/06/18 98.5 123 24 139/99 99 Room Air 12:20 (112) 12/06/18 98.5 148 20 145/101 96 12:11 (116) Physical Exam Const: Moderate distress Head: Atraumatic Eyes: Normal Conjunctiva ENT: Normal External Ears, Nose and Mouth. Neck: Full range of motion. No meningismus. Resp: Clear to auscultation bilaterally Cardio: Tachycardic rate without murmur Abd: Diffuse tenderness to palpation without rebound or guarding Skin: No petechiae or rashes Back: No midline or flank tenderness Ext: No cyanosis, or edema Neur: Awake and alert Psych: Normal Mood and Affect Result Diagram: 12/06/18 1231 12/06/18 1231 Results 24 hrs Laboratory Tests Test 12/06/18 12:31 12/06/18 12:42 White Blood Count 18.2 10^3/ul Red Blood Count 5.39 10^6/ul Hemoglobin 14.2 g/dl Hematocrit 42.8 % Mean Corpuscular Volume 79.4 fl Mean Corpuscular Hemoglobin 26.3 pg Mean Corpuscular Hemoglobin Concent 33.2 g/dl Red Cell Distribution Width 13.0 % Platelet Count 216 10^3/UL Mean Platelet Volume 9.9 fl Immature Granulocytes % 0.900 % Neutrophils % % Segmented Neutrophils % (Manual) 75 % Band Neutrophils % (Manual) 10 % Lymphocytes % % Lymphocytes % (Manual) 4 % Monocytes % % Monocytes % (Manual) 11 % Eosinophils % % Basophils % % Nucleated Red Blood Cells % 0.0 /100WBC Immature Granulocytes # 0.170 10^3/ul Neutrophils # 10^3/ul Neutrophils # (Manual) 14.0 10^3/ul Band Neutrophils # 1.8 10^3/ul Lymphocytes (Manual) 0.7 10^3/ul Lymphocytes # 10^3/ul Monocytes # 10^3/ul Monocytes # (Manual) 2.0 10^3/ul Eosinophils # 10^3/ul Basophils # 10^3/ul Nucleated Red Blood Cells # 10^3/ul Platelet Estimate NORMAL Polychromasia 3+ Poikilocytosis 1+ Anisocytosis 2+ Microcytosis 2+ Prothrombin Time 15.2 Sec Prothrombin Time Ratio 1.2 INR International Normalized Ratio 1.19 Activated Partial Thromboplast Time 31.8 Sec Sodium Level 139 mmol/L Potassium Level 4.0 mmol/L Chloride Level 104 mmol/L Carbon Dioxide Level 22 mmol/L Anion Gap 13 Blood Urea Nitrogen 17 mg/dl Creatinine 1.04 mg/dl Est Glomerular Filtrat Rate mL/min > 60 mL/min Glucose Level 205 mg/dl Calcium Level 8.9 mg/dl Total Bilirubin 0.7 mg/dl Direct Bilirubin 0.00 mg/dl Indirect Bilirubin 0.7 mg/dl Aspartate Amino Transf (AST/SGOT) 21 IU/L Alanine Aminotransferase (ALT/SGPT) 25 IU/L Alkaline Phosphatase 104 IU/L Troponin I < 0.012 ng/ml Total Protein 7.7 g/dl Albumin 3.5 g/dl Globulin 4.20 g/dl Albumin/Globulin Ratio 0.83 Lipase 31 U/L Lactic Acid Level 2.1 mmol/L Current Medications Medications Dose Sig/Dago Start Time Status Last (Trade) Ordered Route PRN Stop Time Admin Dose Reason Admin Sodium 1,990 ml BOLUS OVER 2 12/06/18 DC 12/06/18 Chloride HOURS STAT 12:17 12/06/18 12:33 (NS) IV* 12:18 Morphine 4 mg ONCE STAT 12/06/18 DC 12/06/18 Sulfate IV 12:17 12/06/18 12:34 (morphine) 12:18 Ondansetron 4 mg ONCE STAT 12/06/18 DC 12/06/18 HCl (Zofran IV 12:17 12/06/18 12:34 Inj) 12:18 40 mg ONCE ONCE 12/06/18 DC 12/06/18 Pantoprazole IV 12:30 12/06/18 12:34 (Protonix 12:31 Iv) Ceftriaxone 50 ml @ ONCE ONCE 12/06/18 DC 12/06/18 Sodium 100 mls/hr IVPB 12:30 12/06/18 12:33 12:59 Ondansetron 4 mg ER BRIDGE 12/06/18 HCl (Zofran PRN IV 14:00 12/07/18 Inj) NAUSEA/VOMITI 13:59 NG 650 mg ER BRIDGE 12/06/18 Acetaminophen PRN PO 14:00 12/07/18 (Tylenol .MILD PAIN 13:59 Tab) 1-3 OR TEMP Procedures/MDM EKG read by me: Rate/Rhythm: Sinus tachycardia Intervals: Normal Impression: Tachycardia without ischemia X-ray read by radiology shows possible pneumonia. Ultrasound guided paracentesis to be performed by radiology. Sepsis Documentation: Patient's infectious symptoms have not stabilized and the patient is at risk of rapid decompensation. The patient will be admitted for careful hydration, antibiotic therapy, and infectious source control. SEVERE SEPSIS CRITERIA: Infectious source: Pneumonia End organ damage indicated by: Lactate greater than 2 SEPSIS MANAGEMENT Time of recognition of sepsis: 12:42 PM. Time of recognition of severe sepsis: 12:42 PM. Time of recognition of septic shock: No septic shock at this time. 3 HOUR BUNDLE Blood cultures x 2 before broad-spectrum antibiotics: Yes 30 ml/kg NS bolus completed Initial lactate 2.1 Repeat lactate pending SEPTIC SHOCK ASSESSMENT: No lactic acid > 4.0 No persistent hypotension (SBP < 90 or 40 mmHg drop, MAP < 65) despite 30 mL/kg IV fluid bolus VOLUME REASSESSMENT FOR SEPTIC SHOCK: No septic shock at this time PERSISTENT HYPOTENSION TREATMENT: Comfort care no Central line not Required Vasopressor started not required I considered further perfusion assessment with CVP measurement, SCVO2, bedside ultrasound volume assessment, passive leg raise, trial of further fluid bolus. And proceeded with 30 ml/kg fluid bolus of NSS, broad spectrum antibiotics, and admission. I spoke with Dr. Noriega for admission to a telemetry bed. CRITICAL CARE Critical care time 35 minutes Emergent fluid management while maintaining close respiratory support. Provision of immediate and broad-spectrum antibiotic therapy. Simultaneous assessment for possible sources in order to direct targeted therapy. Consideration for invasive and chemical support to prevent cardiopulmonary collapse. Critical care time is independent of procedures performed. Departure Diagnosis: Primary Impression: Severe sepsis Additional Impressions: GI bleed GI bleed type/associated pathology: unspecified gastrointestinal hemorrhage type Qualified Codes: K92.2 - Gastrointestinal hemorrhage, unspecified Abdominal pain Abdominal location: unspecified location Qualified Codes: R10.9 - Unspecified abdominal pain Pneumonia Pneumonia type: due to unspecified organism Laterality: unspecified laterality Lung location: unspecified part of lung Qualified Codes: J18.9 - Pneumonia, unspecified organism Condition: Serious GLEN SEVILLA MD Dec 06, 2018 14:01
--- NOTE | 2018-12-06 14:16 | HP ---
Date/Time of Note Date/Time of Note DATE: 12/06/18 TIME: 14:15 Assessment/Plan VTE Prophylaxis Pharmacological prophylaxis: NA/contraindicated Pharm contraindication: liver dx Lines/Catheters IV [facility] Type [facility]from [facility] Saline Lock Assessment/Plan Hospital Course 58-year-old male with comorbidities including diabetes mellitus type 2, anemia, cirrhosis of the liver, prior alcoholism, and adenocarcinoma of the the stomach in 2016, with recurrence in 2019 (biopsy positive on 11/26/2018) who came to the emergency room with chief complaint of multiple episodes of vomiting and diarrhea that was reported to as black tarpatel, who will be admitted to inpatient setting for further treatment and evaluation. 1. Hematemesis/melena. -Etiology unclear. -Deferentials include bleeding esophageal varices, peptic ulcer disease, versus underlying malignancy. -Continue proton pump inhibitors. -Patient recently had a esophagogastroduodenoscopy on 11/26/2018 that showed esophagitis and secondary esophageal varices without bleeding. Obtain gastroenterology consult. -Start PPI. -Monitor H&H closely. 2. Sepsis with leukocytosis, bandemia, tachycardia, and lactic acidosis, present on admission. -Etiology could be underlying spontaneous bacterial peritonitis. -Start empiric antimicrobials. -Obtain pruett cultures. 3. Ascites. -Etiology could be secondary to underlying hepatic cirrhosis. -Ultrasound-guided paracentesis ordered. 4 Diabetes mellitus type 2. -Start the patient on sliding scale insulin with basal insulin and pre-meal insulin. -Hemoglobin A1c 7.1. 5 Adenocarcinoma of the stomach. -Pathology from 11/26 2018 + for adenocarcinoma that is moderately differentiated. -Outpatient follow-up with oncology. Plan: The patient will be admitted to inpatient setting. The patient will be kept n.p.o. until paracentesis. The patient will be started on DVT prophylaxis ((SCDs). The patient will remain a full code. Activities will be as tolerated. The rest of the patient's management will be based on the clinical course, inputs from consultants, and the results of diagnostic studies. Based on the patient's clinical presentation, he most probably requires at least 2 midnight's stay for further management and evaluation of his clinical presentation. The patient was seen in collaboration with Dr. Noriega. Result Diagram: 12/06/18 1231 12/06/18 1231 Results 24hrs Laboratory Tests Test 12/06/18 12:31 12/06/18 12:42 White Blood Count 18.2 #H Red Blood Count 5.39 # Hemoglobin 14.2 # Hematocrit 42.8 Mean Corpuscular Volume 79.4 L Mean Corpuscular Hemoglobin 26.3 L Mean Corpuscular Hemoglobin Concent 33.2 Red Cell Distribution Width 13.0 Platelet Count 216 # Mean Platelet Volume 9.9 Immature Granulocytes % 0.900 H Neutrophils % Segmented Neutrophils % (Manual) 75 Band Neutrophils % (Manual) 10 H Lymphocytes % Lymphocytes % (Manual) 4 L Monocytes % Monocytes % (Manual) 11 Eosinophils % Basophils % Nucleated Red Blood Cells % 0.0 Immature Granulocytes # 0.170 H Neutrophils # Neutrophils # (Manual) 14.0 H Band Neutrophils # 1.8 H Lymphocytes (Manual) 0.7 L Lymphocytes # Monocytes # Monocytes # (Manual) 2.0 H Eosinophils # Basophils # Nucleated Red Blood Cells # Platelet Estimate NORMAL Polychromasia 3+ Poikilocytosis 1+ Anisocytosis 2+ Microcytosis 2+ Prothrombin Time 15.2 H Prothrombin Time Ratio 1.2 INR International Normalized Ratio 1.19 Activated Partial Thromboplast Time 31.8 Sodium Level 139 Potassium Level 4.0 Chloride Level 104 Carbon Dioxide Level 22 Anion Gap 13 Blood Urea Nitrogen 17 Creatinine 1.04 Est Glomerular Filtrat Rate mL/min > 60 Glucose Level 205 Calcium Level 8.9 Total Bilirubin 0.7 Direct Bilirubin 0.00 Indirect Bilirubin 0.7 Aspartate Amino Transf (AST/SGOT) 21 Alanine Aminotransferase (ALT/SGPT) 25 Alkaline Phosphatase 104 Troponin I < 0.012 Total Protein 7.7 Albumin 3.5 Globulin 4.20 H Albumin/Globulin Ratio 0.83 Lipase 31 Lactic Acid Level 2.1 *H HPI/ROS Admit Date/Time Admit Date/Time Hx of Present Illness This is a 58-year-old male with past medical history of diabetes mellitus type 2, anemia, cirrhosis of the liver, prior alcoholism, and adenocarcinoma of the lesser curvature of the stomach that was treated with chemotherapy under Dr. Barbosa. The patient was recently admitted to [facility] on November 24, 2018 because of abdominal distention from underlying ascites. The patient's ascites fluid showed malignant cells. Consequently, the patient was further evaluated with esophagogastroduodenoscopy and gastric biopsy that was positive for moderately differentiated adenocarcinoma. The patient was discharged home on November 30, 2018, to be followed up with the outpatient oncology. Nevertheless, the patient did not follow-up with oncology. The patient verbalized that he has not been feeling well and hence he could not follow with up with the oncologist. The patient came to the emergency room on 12/06/2018 with chief complaint of multiple episodes of diarrhea and vomiting since 12/05/2018. The patient verbalized that he had 5 episodes of black tarry stools and 5 episodes of vomiti ng with vomitus mixed with blood, bile, and black colored fluid (digested blood). The patient denied any fevers or chills. The patient was complaining of vague abdominal pain. He denied any chest pain. The patient was complaining of a sore throat. The patient denied any cough or sputum production. In the emergency room, the patient was noticed to have sinus tachycardia. The patient was afebrile. He had underlying leukocytosis and bandemia. The patient had minimally elevated lactic acid. The patient was treated with a single dose of IV ceftriaxone along with IV fluid resuscitation and a single dose of IV Protonix in the emergency room. ROS Constitutional: fatigue, nausea, poor po Eyes: no complaints ENT: no complaints Respiratory: no complaints Cardiovascular: no complaints Gastrointestinal: pain, diarrhea, nausea, vomiting Genitourinary: no complaints Musculoskeletal: no complaints Skin: no complaints Neurologic: no complaints Endocrine: no complaints Lymphatic: no complaints Psychological: no complaints Immunologic: no complaints PMH/Family/Social Past Medical History 1. Diabetes mellitus type 2. 2. Anemia. 3. Liver cirrhosis. 4. HER-2 negative adenocarcinoma of the stomach 2016 with recurrence in 2018. Medications Current Medications Ondansetron HCl (Zofran Inj) 4 mg ER BRIDGE PRN IV NAUSEA/VOMITING; Start 12/06/18 at 14:00; Stop 12/07/18 at 13:59 Acetaminophen (Tylenol Tab) 650 mg ER BRIDGE PRN PO .MILD PAIN 1-3 OR TEMP; Start 12/06/18 at 14:00; Stop 12/07/18 at 13:59 Coded Allergies: naproxen (Unverified Allergy, Mild, itchy, 12/06/18) Past Surgical History 1. Right chest wall Port-A-Cath placement. Social History The patient lives at home with his family. Alcohol Use: sober Smoking Status: Never smoker Drug Use: none Exam/Review of Systems Vital Signs Vitals Vital Signs Date Temp Pulse Resp B/P (MAP) Pulse Ox O2 O2 Flow FiO2 Time Delivery Rate 12/06/18 98.5 123 24 139/99 99 Room Air 12:20 (112) Exam Exam General: Adequately build 58 year-old male lying in bed in no apparent distress. HEENT: Normocephalic, atraumatic. Eyes: Anicteric sclerae, conjunctivae clear. ENT: Nasal septum midline, oral mucosa moist. Neck supple, JVD noticed. Respiratory: Bilaterally clear breath sounds. No use of accessory muscles of respiration. No adventitious breath sounds. Cardiovascular: S1, S2 heard. Regular rate and rhythm. Abdomen: Distended and nontender. Genitourinary: Deferred. Extremities: No cyanosis, no clubbing, no edema. Peripheral pulses palpable. Neurologic: Cranial nerves II through XII grossly intact. The patient is awake, alert, and oriented. Skin: Normal skin turgor. No skin rashes. BRAYAN GUERRERO NP Dec 06, 2018 14:16
[2018-12-06] MEDS ORDERED: NACL 0.9% 3 ML SYG IV SCH (14:30)
[2018-12-06] MEDS ORDERED: GLUCOSE GEL 15 GRAM TUBE PO PRN ×2 (15:00)
[2018-12-06] MEDS ORDERED: GLUCAGON 1 MG INJ IM PRN (15:00)
[2018-12-06] MEDS ORDERED: GLUCOSE GEL 15 GRAM TUBE BUCCAL PRN (15:00)
[2018-12-06] MEDS ORDERED: DEXTROSE 50% 50 ML SYRINGE IV PRN ×2 (15:00)
[2018-12-06] MEDS: METOCLOPRAMIDE 10 MG INJ IV SCH ×2 (16:15→22:10)
[2018-12-06] MEDS ORDERED: LIDOCAINE 1% (MPF) 5 ML VIAL ONE (18:00)
[2018-12-06] MEDS: INSULIN ASPART [NOVOLOG] 3 ML PEN SC SCH ×3 (18:00→21:00)
[2018-12-06] MEDS: SPIRONOLACTONE 50 MG TAB PO SCH (19:02)
[2018-12-06] MEDS: INSULIN GLARGINE [LANTus] (100 UNITS/ML) SYG SC SCH (19:13)
[2018-12-06] MEDS: PANTOPRAZOLE 40 MG INJ IV SCH (22:04)
--- NOTE | 2018-12-06 23:46 | CONS ---
DATE OF ADMISSION: 12/06/2018 DATE OF CONSULTATION: HISTORY OF PRESENT ILLNESS: The patient is a 58-year-old male with cirrhosis of liver, has got a can cer of the stomach. He had radiation and chemotherapy almost two years ago, never followed up with dakota guerra oncologist. The patient was scoped by me last week and the biopsy was confirmatory for adenocarci noma. He came to the ER complaining of hematemesis. No melena. He has nausea, vomiting. No chest pain. No or CRIMINAL INVESTIGATOR problem. However, as per the SENIOR BUSINESS PROCESS ANALYST's note, patient had a black colored stool. PAST MEDICAL HISTORY: Cirrhosis of liver, ascites, diabetes mellitus. His ascitic fluid also was po sitive for atypical cell consistent with the diagnosis of adenocarcinoma. REVIEW OF SYSTEMS: Negative. SOCIAL HISTORY: Does not smoke or drink. PHYSICAL EXAMINATION: VITALS: Stable. HEENT: Unremarkable. NECK: Supple, no thyromegaly, no lymphadenopathy. CARDIOVASCULAR: No murmur, gallop or click. LUNGS: Clear. ABDOMEN: Benign. EXTREMITIES: No edema. CENTRAL NERVOUS SYSTEM: Grossly within normal limit. I reviewed my previous endoscopy report. He had esophageal varicose vein. Those were no bleeding. He also had esophagitis. PLAN: Plan at this point, monitor H and H, continue with PPI. We will start the patient on Reglan. He had gastroparesis in the past. I agree with you for a paracentesis. If it is due to malignancy as per the cytology, which was positive, then patient may not respond to diuretic. Also, if the blee ding is significant, then I will proceed with EGD and banding of the varicose vein. For the gastric cancer, which was in the form of thickening of the mucosal lining ____ ulcer, the bleeding base can b e controlled only with hemo spray and hemo spray is not available at this facility, it is available a t [facility]. Dictated By: DEIDRE TERRY/AMBER Conf#: [id number] DID#: [id number]
[2018-12-07] VITALS (13 sets, daily range): BP systolic 103–141; BP diastolic 70–77; PULSE 68–97; RESP 16–24; Ht 167.6 cm; Wt 63.8 kg
[2018-12-07] MEDS: METOCLOPRAMIDE 10 MG INJ IV SCH ×3 (05:54→21:41)
[2018-12-07] MEDS: SPIRONOLACTONE 50 MG TAB PO SCH ×2 (05:55→20:47)
[2018-12-07] MEDS: INSULIN ASPART [NOVOLOG] 3 ML PEN SC SCH ×9 (07:44→20:54)
--- NOTE | 2018-12-07 07:50 | PREAC ---
Date/Time of Note Date/Time of Note DATE: 12/07/18 TIME: 07:48 Anesthesia Eval and Record Evaluation Time Pre-Procedure Interview DATE: 12/07/18 TIME: 07:48 Age 58 Sex male NPO: 8 hrs Preoperative diagnosis gi bleeding Planned procedure egd Past Medical History Past Medical History: Includes Endo: Diabetes Hepatic: Cirrhosis GI: Other (adenocarcinoma of stomach ) Heme: Other Surgery & Anesthesia Issues No known issue Meds Anticoagulation: No Beta Chidi within 24 hr: Yes Reason Beta Chidi not given: Pt. not on B-Chidi, Other Active Scripts Lactobacillus Rhamnosus GG (Culturelle) 1 Each Capsule, 1 CAP PO BID for 7 Days, #14 CAP Prov:JANIE CARNEY MD 11/30/18 Thiamine* (Vitamin B-1*) 100 Mg Tablet, 100 MG PO DAILY for 30 Days, #30 TAB Prov:JANIE CARNEY MD 11/30/18 Famotidine* (Famotidine*) 20 Mg Tablet, 20 MG PO HS for 10 Days, #10 TAB otc Prov:JANIE CARNEY MD 11/30/18 Lactulose* (Lactulose*) 20 Gm/30 Ml Solution, 20 GM PO DAILY for 14 Days, #14 2 Refills Prov:JANIE CARNEY MD 11/30/18 Spironolactone* (Aldactone*) 50 Mg Tablet, 50 MG PO BID DIURETICS for 14 Days, #14 TAB Prov:JANIE CARNEY MD 11/30/18 Nadolol (Corgard) 40 Mg Tablet, 20 MG PO DAILY for 14 Days, #14 TAB Prov:JANIE CARNEY MD 11/30/18 Reported Medications Insulin Glargine,Hum.rec.anlog (Basaglar Kwikpen U-100) 100 Unit/1 Ml Insuln.pen, 20 UNIT SC QHS, EA 12/06/18 Metformin Hcl* (Metformin Hcl*) 1,000 Mg Tablet, 1000 MG PO WITH BREAKFAST DINNE, #60 TAB 12/06/18 Aspirin* (Aspirin* EC) 81 Mg Tablet.dr, 81 MG PO DAILY, TAB 12/06/18 Current Medications Ondansetron HCl (Zofran Inj) 4 mg ER BRIDGE PRN IV NAUSEA/VOMITING; Start 12/06/18 at 14:00; Stop 12/07/18 at 13:59 Acetaminophen (Tylenol Tab) 650 mg ER BRIDGE PRN PO .MILD PAIN 1-3 OR TEMP; St art 12/06/18 at 14:00; Stop 12/07/18 at 13:59 IV Flush (NS 3 ml) 3 ml PER PROTOCOL IV ; Start 12/06/18 at 14:30 Tramadol HCl (Ultram) 50 mg Q6H PRN PO MODERATE PAIN LEVEL 4-6; Start 12/06/18 at 14:30 Spironolactone (Aldactone) 50 mg BID DIURETICS PO Last administered on 12/06/18at 19:02; Admin Dose 50 MG; Start 12/06/18 at 18:00 Insulin Glargine (Lantus) 10 units DAILY@2000 SC Last administered on 12/06/18at 19:13; Admin Dose 10 UNITS; Start 12/06/18 at 20:00 Insulin Aspart (Novolog Insulin Pen) 3 unit WITH MEALS SC Last administered on 12/06/18at 19:01; Admin Dose 3 UNIT; Start 12/06/18 at 18:00 Insulin Aspart (Novolog Insulin Pen) NOVOLOG *MILD* ALGORITHM WITH MEALS BEDTIME SC ; Start 12/06/18 at 18:00 Miscellaneous Information 1 ea NOTE XX ; Start 12/06/18 at 15:00 Glucose (Glutose) 15 gm Q15M PRN PO DECREASED GLUCOSE; Start 12/06/18 at 15:00 Glucose (Glutose) 22.5 gm Q15M PRN PO DECREASED GLUCOSE; Start 12/06/18 at 15:00 Dextrose (D50w Syringe) 25 ml Q15M PRN IV DECREASED GLUCOSE; Start 12/06/18 at 15:00 Dextrose (D50w Syringe) 50 ml Q15M PRN IV DECREASED GLUCOSE; Start 12/06/18 at 15:00 Glucagon (Glucagen) 1 mg Q15M PRN IM DECREASED GLUCOSE; Start 12/06/18 at 15:00 Glucose (Glutose) 15 gm Q15M PRN BUCCAL DECREASED GLUCOSE; Start 12/06/18 at 15:00 Pantoprazole (Protonix Iv) 40 mg BID IV Last administered on 12/06/18at 22:04; Admin Dose 40 MG; Start 12/06/18 at 21:00 Metoclopramide HCl (Reglan) 10 mg Q8 IV Last administered on 12/07/18at 05:54; Admin Dose 10 MG; Start 12/06/18 at 16:00 Meds reviewed: Yes Allergies Coded Allergies: naproxen (Unverified Allergy, Mild, itchy, 12/06/18) Allergies Reviewed: Yes Labs/Studies Labs Reviewed: Reviewed by anesthesiologist Result Diagram: 12/07/18 0459 12/07/18 0459 Laboratory Tests 12/07/18 04:59 test: N/A Pre-procedure Exam Last vitals Vital Signs Date Temp Pulse Resp B/P (MAP) Pulse Ox O2 O2 Flow FiO2 Time Delivery Rate 12/07/18 97.6 94 18 118/74 98 Room Air 07:38 (89) Airway: Adequate mouth opening, Adequate thyromental dist Mallampati: Mallampati IV Teeth: Normal Lung: Normal Heart: Normal ASA Physical Status ASA physical status: 4 Emergency: None Pre-operative Attestations Prior to commencing anesthesia and surgery, the patient was re-evaluated, there was verification of: *The patient's identity *The results of appropriate recent lab work and preoperative vital signs *The above evaluation not changing prior to induction *Anesthetic plan, risk benefits, alternative and complications discussed with patient/family; questions answered; patient/family understands, accepts and wishes to proceed. WILLIAMS GRIFFIN DO Dec 07, 2018 07:50
[2018-12-07] MEDS ORDERED: MIDAZOLAM 1 MG/ML 2 ML INJ ONE (08:04)
[2018-12-07] MEDS ORDERED: FENTAnyl 50 MCG/ML VIAL ONE (08:04)
[2018-12-07] MEDS ORDERED: ETOMIDATE 20 MG INJ ONE (08:04)
[2018-12-07] MEDS ORDERED: PROPOFOL 20 ML ONE (08:04)
[2018-12-07] MEDS ORDERED: LIDOCAINE 2% (SDV) 5 ML INJ ONE (08:04)
[2018-12-07] MEDS ORDERED: LIDOCAINE 4% SOLUTION 50 ML BTL ONE (08:05)
[2018-12-07] MEDS ORDERED: EPINEPHrine 0.1 MG/ML SYG ONE (08:06)
--- NOTE | 2018-12-07 08:38 | PAC ---
Date/Time of Note Date/Time of Note DATE: 12/07/18 TIME: 08:37 Post-Anesthesia Notes Post-Anesthesia Note Last documented vital signs Vital Signs Date Temp Pulse Resp B/P (MAP) Pulse Ox O2 O2 Flow FiO2 Time Delivery Rate 12/07/18 97.8 82 18 105/75 98 Room Air 0837 Activity: WNL Respiratory function: WNL Cardiovascular function: WNL Mental status: Baseline Pain reasonably controlled: Yes Hydration appropriate: Yes Nausea/Vomiting absent: Yes WILLIAMS GRIFFIN DO Dec 07, 2018 08:38
[2018-12-07] MEDS: PANTOPRAZOLE 40 MG INJ IV SCH ×2 (09:57→20:48)
--- NOTE | 2018-12-07 11:05 | CONS ---
Assessment/Plan Assessment/Plan Assessment/Plan (Daily) 1 upper GI bleeding most probably from the tumor patient has got a adenocarcinoma of the stomach 2. Anemia stable 3. Cirrhosis of liver 4. Portal hypertension Plan Discussed the case with the anesthesiologist patient is stable enough and we can proceed with EGD to find out the source of upper GI bleeding and perform therapeutic endoscopy at the same time Consultation Date/Type/Reason Admit Date/Time Dec 06, 2018 at 13:44 Initial Consult Date Date/Time of Note DATE: 12/07/18 TIME: 11:04 24 HR Interval Summary Free Text/Dictation No further emesis Patient is having melanotic stool. No chest pain no shortness of breath no abdominal pain Exam/Review of Systems Exam Vitals Vital Signs Date Temp Pulse Resp B/P (MAP) Pulse Ox O2 O2 Flow FiO2 Time Delivery Rate 12/07/18 98.5 88 18 122/75 97 Room Air 09:55 (91) 12/07/18 6.0 08:44 Constitutional: alert, oriented, well developed Psych: no complaints, nl mood/affect Head: normocephalic, atraumatic Eyes: nl conjunctiva, EOMI, nl lids, nl sclera, PERRL ENMT: nl external ears & nose, nl lips & teeth, nl nasal mucosa & septum Neck: supple, non-tender Respiratory: clear to auscultation, normal air movement Cardiovascular: regular rate and rhythm, nl pulses Gastrointestinal: soft, nl liver, spleen, non-tender Musculoskeletal: nl extremities to inspection, nl gait and stance Extremities: normal pulses Neurological: LINING FOLDER II-XII intact, nl mental status, nl speech, nl strength Skin: nl turgor; No rash or lesions Lymph: nl lymph nodes Results Result Diagram: 12/07/18 0459 12/07/18 0459 Results 24hrs Laboratory Tests Test 12/06/18 12:31 12/06/18 12:42 12/06/18 16:25 12/06/18 17:00 White Blood Count 18.2 #H Red Blood Count 5.39 # Hemoglobin 14.2 # Hematocrit 42.8 Mean Corpuscular 79.4 L Volume Mean Corpuscular 26.3 L Hemoglobin Mean Corpuscular 33.2 Hemoglobin Concen t Red Cell 13.0 Distribution Width Platelet Count 216 # Mean Platelet 9.9 Volume Immature 0.900 H Granulocytes % Neutrophils % Segmented 75 Neutrophils % (Manual) Band Neutrophils 10 H % (Manual) Lymphocytes % Lymphocytes % 4 L (Manual) Monocytes % Monocytes % 11 (Manual) Eosinophils % Basophils % Nucleated Red 0.0 Blood Cells % Immature 0.170 H Granulocytes # Neutrophils # Neutrophils # 14.0 H (Manual) Band Neutrophils 1.8 H # Lymphocytes 0.7 L (Manual) Lymphocytes # Monocytes # Monocytes # 2.0 H (Manual) Eosinophils # Basophils # Nucleated Red Blood Cells # Platelet Estimate NORMAL Polychromasia 3+ Poikilocytosis 1+ Anisocytosis 2+ Microcytosis 2+ Prothrombin Time 15.2 H Prothrombin Time 1.2 Ratio INR International 1.19 Normalized Ratio Activated 31.8 Partial Thrombopl ast Time Sodium Level 139 Potassium Level 4.0 Chloride Level 104 Carbon Dioxide 22 Level Anion Gap 13 Blood Urea 17 Nitrogen Creatinine 1.04 Est Glomerular > 60 Filtrat Rate mL/min Glucose Level 205 Calcium Level 8.9 Total Bilirubin 0.7 Direct Bilirubin 0.00 Indirect 0.7 Bilirubin Aspartate Amino 21 Transf (AST/SGOT) Alanine 25 Aminotransferase (ALT/SGPT) Alkaline 104 Phosphatase Troponin I < 0.012 Total Protein 7.7 Albumin 3.5 Globulin 4.20 H Albumin/Globulin 0.83 Ratio Lipase 31 Lactic Acid Level 2.1 *H Urine Color BUNNY Urine Clarity SLIGHTLY CLOUDY A Urine pH 5.0 Urine Specific 1.025 [place] Urine Ketones TRACE A Urine Nitrite NEGATIVE Urine Bilirubin NEGATIVE Urine NEGATIVE Urobilinogen Urine Leukocyte NEGATIVE Esterase Urine Microscopic 1 RBC Urine Microscopic 3 WBC Urine Mucus MODERATE Urine Hemoglobin 2+ H Urine Glucose NEGATIVE Urine Total NEGATIVE Protein Body Fluid Type ASCITES Body Fluid Volume 1000.0 Body Fluid Color YELLOW Body Fluid SLIGHTLY CLOUDY Appearance Body Fluid WBC 891 Body Fluid RBC 1000 (Auto) Body Fluid 16.3 Polynuclear WBCs (%) Body Fluid 83.7 Mononuclear Cells % Auto Test 12/06/18 18:59 12/06/18 21:01 12/06/18 22:06 12/07/18 00:46 Bedside Glucose 109 126 Hemoglobin 11.5 L 11.8 L Hematocrit 35.0 L 36.7 L Lactic Acid Level 0.9 Test 12/07/18 04:58 12/07/18 04:59 12/07/18 06:58 12/07/18 09:59 Prothrombin Time 15.2 H Prothrombin Time 1.2 Ratio INR International 1.19 Normalized Ratio Activated 33.4 Partial Thrombopl ast Time Lactic Acid Level 0.9 Ammonia 11 White Blood Count 9.1 # Red Blood Count 4.49 L Hemoglobin 11.8 L Hematocrit 36.1 L Mean Corpuscular 80.4 L Volume Mean Corpuscular 26.3 L Hemoglobin Mean Corpuscular 32.7 Hemoglobin Concen t Red Cell 12.8 Distribution Width Platelet Count 167 # Mean Platelet 9.9 Volume Immature 0.300 Granulocytes % Neutrophils % Segmented 73 Neutrophils % (Manual) Band Neutrophils 5 H % (Manual) Lymphocytes % 10.5 L Lymphocytes % 11 L (Manual) Monocytes % 11.5 H Monocytes % 11 (Manual) Eosinophils % Basophils % 0.2 Nucleated Red 0.0 Blood Cells % Immature 0.030 Granulocytes # Neutrophils # Neutrophils # 6.7 (Manual) Band Neutrophils 0.4 # Lymphocytes 1.0 (Manual) Lymphocytes # 1.0 Monocytes # 1.0 H Monocytes # 1.0 H (Manual) Eosinophils # Basophils # 0.0 Nucleated Red 0.0 Blood Cells # Platelet Estimate NORMAL Giant Platelets 1 H Polychromasia 1+ Anisocytosis 1+ Microcytosis 1+ Sodium Level 140 Potassium Level 3.5 Chloride Level 107 Carbon Dioxide 26 Level Anion Gap 7 Blood Urea 14 Nitrogen Creatinine 0.81 Est Glomerular > 60 Filtrat Rate mL/min Glucose Level 117 # Calcium Level 7.9 L Phosphorus Level 3.3 Magnesium Level 2.1 Total Bilirubin 0.4 Direct Bilirubin 0.00 Indirect 0.4 Bilirubin Aspartate Amino 22 Transf (AST/SGOT) Alanine 28 Aminotransferase (ALT/SGPT) Alkaline 69 Phosphatase Total Protein 6.0 #L Albumin 2.6 L Globulin 3.40 H Albumin/Globulin 0.76 Ratio Bedside Glucose 135 113 Medications Medication Current Medications Ondansetron HCl (Zofran Inj) 4 mg ER BRIDGE PRN IV NAUSEA/VOMITING; Start 12/06/18 at 14:00; Stop 12/07/18 at 13:59 Acetaminophen (Tylenol Tab) 650 mg ER BRIDGE PRN PO .MILD PAIN 1-3 OR TEMP; Start 12/06/18 at 14:00; Stop 12/07/18 at 13:59 IV Flush (NS 3 ml) 3 ml PER PROTOCOL IV ; Start 12/06/18 at 14:30 Tramadol HCl (Ultram) 50 mg Q6H PRN PO MODERATE PAIN LEVEL 4-6; Start 12/06/18 at 14:30 Spironolactone (Aldactone) 50 mg BID DIURETICS PO Last administered on 12/06/18at 19:02; Admin Dose 50 MG; Start 12/06/18 at 18:00 Insulin Glargine (Lantus) 10 units DAILY@2000 SC Last administered on 12/06/18at 19:13; Admin Dose 10 UNITS; Start 12/06/18 at 20:00 Insulin Aspart (Novolog Insulin Pen) 3 unit WITH MEALS SC Last administered on 12/07/18at 10:07; Admin Dose 3 UNIT; Start 12/06/18 at 18:00 Insulin Aspart (Novolog Insulin Pen) NOVOLOG *MILD* ALGORITHM WITH MEALS BEDTIME SC ; Start 12/06/18 at 18:00 Miscellaneous Information 1 ea NOTE XX ; Start 12/06/18 at 15:00 Glucose (Glutose) 15 gm Q15M PRN PO DECREASED GLUCOSE; Start 12/06/18 at 15:00 Glucose (Glutose) 22.5 gm Q15M PRN PO DECREASED GLUCOSE; Start 12/06/18 at 15:00 Dextrose (D50w Syringe) 25 ml Q15M PRN IV DECREASED GLUCOSE; Start 12/06/18 at 15:00 Dextrose (D50w Syringe) 50 ml Q15M PRN IV DECREASED GLUCOSE; Start 12/06/18 at 15:00 Glucagon (Glucagen) 1 mg Q15M PRN IM DECREASED GLUCOSE; Start 12/06/18 at 15:00 Glucose (Glutose) 15 gm Q15M PRN BUCCAL DECREASED GLUCOSE; Start 12/06/18 at 15:00 Pantoprazole (Protonix Iv) 40 mg BID IV Last administered on 12/07/18at 09:57; Admin Dose 40 MG; Start 12/06/18 at 21:00 Metoclopramide HCl (Reglan) 10 mg Q8 IV Last administered on 12/07/18at 05:54; Admin Dose 10 MG; Start 12/06/18 at 16:00 DEIDRE REYNOLDS MD Dec 07, 2018 11:05
[2018-12-07] MEDS: traMADol 50 MG TAB PO PRN (11:29)
--- NOTE | 2018-12-07 12:44 | PN ---
Date/Time of Note Date/Time of Note DATE: 12/07/18 TIME: 12:43 Assessment/Plan VTE Prophylaxis Risk score (from Ns)>0 risk: 4 SCD applied (from Ns): Yes Pharmacological prophylaxis: NA/contraindicated Pharm contraindication: bleeding Lines/Catheters IV [facility]from [facility] Saline Lock Assessment/Plan Hospital Course SUBJECTIVE: Continues to have black tarry stools. OBJECTIVE: Physical Exam General: Adequately build 58 year-old male lying in bed in no apparent distress. HEENT: Normocephalic, atraumatic. Eyes: Anicteric sclerae, conjunctivae clear. ENT: Nasal septum midline, oral mucosa moist. Neck supple, JVD noticed. Respiratory: Bilaterally clear breath sounds. No use of accessory muscles of respiration. No adventitious breath sounds. Cardiovascular: S1, S2 heard. Regular rate and rhythm. Abdomen: Distended and nontender. Genitourinary: Deferred. Extremities: No cyanosis, no clubbing, no edema. Peripheral pulses palpable. Neurologic: Cranial nerves II through XII grossly intact. The patient is awake, alert, and oriented. Skin: Normal skin turgor. No skin rashes. Labs & Vitals per chart ASSESSMENT & PLAN 58-year-old male with comorbidities including diabetes mellitus type 2, anemia, cirrhosis of the liver, prior alcoholism, and adenocarcinoma of the the stomach in 2016, with recurrence in 2019 (biopsy positive on 11/26/2018) who came to the emergency room with chief complaint of multiple episodes of vomiting and diarrhea that was reported to as black tarry, who was admitted to inpatient setting for further treatment and evaluation. 1. Hematemesis/melena. -Status post esophagogastroduodenoscopy on 12/07/2018 that showed infiltrating lesion with ulceration in the midportion of the body of the stomach extending all the way to the GE junction; the lesion near the GE junction was very friable would bleed easily upon touching and fresh blood was seen there. Severe gastroparesis with undigested food occupying 80% of the proximal part of the body of the stomach, gastritis, and erosive esophagitis. -Continue proton pump inhibitors. -Continue Reglan. -Monitor H&H closely. -If further bleeding may need hemo-spray and transfer to another facility that has hemo-spray. 2. Sepsis with leukocytosis, bandemia, tachycardia, and lactic acidosis, present on admission. -Etiology could be underlying spontaneous bacterial peritonitis (Ascitic fluid WBC of 891 and fluid polynuclear WBC of 16.3) . -Continue empiric antimicrobials. 3. Ascites. -Etiology could be secondary to underlying hepatic cirrhosis. -Status post ultrasound-guided paracentesis on 12/06/2018 with drainage of 4.8 L of fluid.. 4 Diabetes mellitus type 2. -Continue the patient on sliding scale insulin with basal insulin and pre-meal insulin. -Hemoglobin A1c 7.1. 5 Adenocarcinoma of the stomach. -Pathology from 11/26 2018 + for adenocarcinoma that is moderately differentiated. -Outpatient follow-up with oncology. 6. Fluids, electrolytes, and nutrition. -Clear liquids. 7. DVT prophylaxis. -Bilateral SCDs. 8. Plan. -Monitor H&H closely. -If further bleeding and drop in H&H, the patient may need to be transferred to an outside facility where he can have hemo-spray. The patient was seen in collaboration with Dr. Noriega. Result Diagram: 12/07/18 0459 12/07/18 0459 Results 24hrs Laboratory Tests Test 12/06/18 16:25 12/06/18 17:00 12/06/18 18:59 12/06/18 21:01 Urine Color BUNNY Urine Clarity SLIGHTLY CLOUDY A Urine pH 5.0 Urine Specific 1.025 [place] Urine Ketones TRACE A Urine Nitrite NEGATIVE Urine Bilirubin NEGATIVE Urine NEGATIVE Urobilinogen Urine Leukocyte NEGATIVE Esterase Urine Microscopic 1 RBC Urine Microscopic 3 WBC Urine Mucus MODERATE Urine Hemoglobin 2+ H Urine Glucose NEGATIVE Urine Total NEGATIVE Protein Body Fluid Type ASCITES Body Fluid Volume 1000.0 Body Fluid Color YELLOW Body Fluid SLIGHTLY CLOUDY Appearance Body Fluid WBC 891 Body Fluid RBC 1000 (Auto) Body Fluid 16.3 Polynuclear WBCs (%) Body Fluid 83.7 Mononuclear Cells % Auto Bedside Glucose 109 Hemoglobin 11.5 L Hematocrit 35.0 L Lactic Acid Level 0.9 Test 12/06/18 22:06 12/07/18 00:46 12/07/18 04:58 12/07/18 04:59 Bedside Glucose 126 Hemoglobin 11.8 L 11.8 L Hematocrit 36.7 L 36.1 L Prothrombin Time 15.2 H Prothrombin Time 1.2 Ratio INR International 1.19 Normalized Ratio Activated 33.4 Partial Thrombopl ast Time Lactic Acid Level 0.9 Ammonia 11 White Blood Count 9.1 # Red Blood Count 4.49 L Mean Corpuscular 80.4 L Volume Mean Corpuscular 26.3 L Hemoglobin Mean Corpuscular 32.7 Hemoglobin Concen t Red Cell 12.8 Distribution Width Platelet Count 167 # Mean Platelet 9.9 Volume Immature 0.300 Granulocytes % Neutrophils % Segmented 73 Neutrophils % (Manual) Band Neutrophils 5 H % (Manual) Lymphocytes % 10.5 L Lymphocytes % 11 L (Manual) Monocytes % 11.5 H Monocytes % 11 (Manual) Eosinophils % Basophils % 0.2 Nucleated Red 0.0 Blood Cells % Immature 0.030 Granulocytes # Neutrophils # Neutrophils # 6.7 (Manual) Band Neutrophils 0.4 # Lymphocytes 1.0 (Manual) Lymphocytes # 1.0 Monocytes # 1.0 H Monocytes # 1.0 H (Manual) Eosinophils # Basophils # 0.0 Nucleated Red 0.0 Blood Cells # Platelet Estimate NORMAL Giant Platelets 1 H Polychromasia 1+ Anisocytosis 1+ Microcytosis 1+ Sodium Level 140 Potassium Level 3.5 Chloride Level 107 Carbon Dioxide 26 Level Anion Gap 7 Blood Urea 14 Nitrogen Creatinine 0.81 Est Glomerular > 60 Filtrat Rate mL/min Glucose Level 117 # Calcium Level 7.9 L Phosphorus Level 3.3 Magnesium Level 2.1 Total Bilirubin 0.4 Direct Bilirubin 0.00 Indirect 0.4 Bilirubin Aspartate Amino 22 Transf (AST/SGOT) Alanine 28 Aminotransferase (ALT/SGPT) Alkaline 69 Phosphatase Total Protein 6.0 #L Albumin 2.6 L Globulin 3.40 H Albumin/Globulin 0.76 Ratio Test 12/07/18 06:58 12/07/18 09:59 Bedside Glucose 135 113 Exam/Review of Systems Exam Vitals Vital Signs Date Temp Pulse Resp B/P (MAP) Pulse Ox O2 O2 Flow FiO2 Time Delivery Rate 12/07/18 98.5 88 18 122/75 97 Room Air 09:55 (91) 12/07/18 6.0 08:44 Results Results 24hrs Laboratory Tests Test 12/06/18 16:25 12/06/18 17:00 12/06/18 18:59 12/06/18 21:01 Urine Color BUNNY Urine Clarity SLIGHTLY CLOUDY A Urine pH 5.0 Urine Specific 1.025 [place] Urine Ketones TRACE A Urine Nitrite NEGATIVE Urine Bilirubin NEGATIVE Urine NEGATIVE Urobilinogen Urine Leukocyte NEGATIVE Esterase Urine Microscopic 1 RBC Urine Microscopic 3 WBC Urine Mucus MODERATE Urine Hemoglobin 2+ H Urine Glucose NEGATIVE Urine Total NEGATIVE Protein Body Fluid Type ASCITES Body Fluid Volume 1000.0 Body Fluid Color YELLOW Body Fluid SLIGHTLY CLOUDY Appearance Body Fluid WBC 891 Body Fluid RBC 1000 (Auto) Body Fluid 16.3 Polynuclear WBCs (%) Body Fluid 83.7 Mononuclear Cells % Auto Bedside Glucose 109 Hemoglobin 11.5 L Hematocrit 35.0 L Lactic Acid Level 0.9 Test 12/06/18 22:06 12/07/18 00:46 12/07/18 04:58 12/07/18 04:59 Bedside Glucose 126 Hemoglobin 11.8 L 11.8 L Hematocrit 36.7 L 36.1 L Prothrombin Time 15.2 H Prothrombin Time 1.2 Ratio INR International 1.19 Normalized Ratio Activated 33.4 Partial Thrombopl ast Time Lactic Acid Level 0.9 Ammonia 11 White Blood Count 9.1 # Red Blood Count 4.49 L Mean Corpuscular 80.4 L Volume Mean Corpuscular 26.3 L Hemoglobin Mean Corpuscular 32.7 Hemoglobin Concen t Red Cell 12.8 Distribution Width Platelet Count 167 # Mean Platelet 9.9 Volume Immature 0.300 Granulocytes % Neutrophils % Segmented 73 Neutrophils % (Manual) Band Neutrophils 5 H % (Manual) Lymphocytes % 10.5 L Lymphocytes % 11 L (Manual) Monocytes % 11.5 H Monocytes % 11 (Manual) Eosinophils % Basophils % 0.2 Nucleated Red 0.0 Blood Cells % Immature 0.030 Granulocytes # Neutrophils # Neutrophils # 6.7 (Manual) Band Neutrophils 0.4 # Lymphocytes 1.0 (Manual) Lymphocytes # 1.0 Monocytes # 1.0 H Monocytes # 1.0 H (Manual) Eosinophils # Basophils # 0.0 Nucleated Red 0.0 Blood Cells # Platelet Estimate NORMAL Giant Platelets 1 H Polychromasia 1+ Anisocytosis 1+ Microcytosis 1+ Sodium Level 140 Potassium Level 3.5 Chloride Level 107 Carbon Dioxide 26 Level Anion Gap 7 Blood Urea 14 Nitrogen Creatinine 0.81 Est Glomerular > 60 Filtrat Rate mL/min Glucose Level 117 # Calcium Level 7.9 L Phosphorus Level 3.3 Magnesium Level 2.1 Total Bilirubin 0.4 Direct Bilirubin 0.00 Indirect 0.4 Bilirubin Aspartate Amino 22 Transf (AST/SGOT) Alanine 28 Aminotransferase (ALT/SGPT) Alkaline 69 Phosphatase Total Protein 6.0 #L Albumin 2.6 L Globulin 3.40 H Albumin/Globulin 0.76 Ratio Test 12/07/18 06:58 12/07/18 09:59 Bedside Glucose 135 113 Medications Medication Current Medications Ondansetron HCl (Zofran Inj) 4 mg ER BRIDGE PRN IV NAUSEA/VOMITING; Start 12/06/18 at 14:00; Stop 12/07/18 at 13:59 Acetaminophen (Tylenol Tab) 650 mg ER BRIDGE PRN PO .MILD PAIN 1-3 OR TEMP; Start 12/06/18 at 14:00; Stop 12/07/18 at 13:59 IV Flush (NS 3 ml) 3 ml PER PROTOCOL IV ; Start 12/06/18 at 14:30 Tramadol HCl (Ultram) 50 mg Q6H PRN PO MODERATE PAIN LEVEL 4-6 Last administered on 12/07/18at 11:29; Admin Dose 50 MG; Start 12/06/18 at 14:30 Spironolactone (Aldactone) 50 mg BID DIURETICS PO Last administered on 12/06/18at 19:02; Admin Dose 50 MG; Start 12/06/18 at 18:00 Insulin Glargine (Lantus) 10 units DAILY@2000 SC Last administered on 12/06/18at 19:13; Admin Dose 10 UNITS; Start 12/06/18 at 20:00 Insulin Aspart (Novolog Insulin Pen) 3 unit WITH MEALS SC Last administered on 12/07/18at 10:07; Admin Dose 3 UNIT; Start 12/06/18 at 18:00 Insulin Aspart (Novolog Insulin Pen) NOVOLOG *MILD* ALGORITHM WITH MEALS BEDTIME SC ; Start 12/06/18 at 18:00 Miscellaneous Information 1 ea NOTE XX ; Start 12/06/18 at 15:00 Glucose (Glutose) 15 gm Q15M PRN PO DECREASED GLUCOSE; Start 12/06/18 at 15:00 Glucose (Glutose) 22.5 gm Q15M PRN PO DECREASED GLUCOSE; Start 12/06/18 at 15:00 Dextrose (D50w Syringe) 25 ml Q15M PRN IV DECREASED GLUCOSE; Start 12/06/18 at 15:00 Dextrose (D50w Syringe) 50 ml Q15M PRN IV DECREASED GLUCOSE; Start 12/06/18 at 15:00 Glucagon (Glucagen) 1 mg Q15M PRN IM DECREASED GLUCOSE; Start 12/06/18 at 15:00 Glucose (Glutose) 15 gm Q15M PRN BUCCAL DECREASED GLUCOSE; Start 12/06/18 at 15:00 Pantoprazole (Protonix Iv) 40 mg BID IV Last administered on 12/07/18at 09:57; Admin Dose 40 MG; Start 12/06/18 at 21:00 Metoclopramide HCl (Reglan) 10 mg Q8 IV Last administered on 12/07/18at 05:54; Admin Dose 10 MG; Start 12/06/18 at 16:00 BRAYAN GUERRERO NP Dec 07, 2018 12:44
[2018-12-07] MEDS ORDERED: INSULIN GLARGINE [LANTus] (100 UNITS/ML) SYG SC ONE (21:30)
[2018-12-07] MEDS: INSULIN GLARGINE [LANTus] (100 UNITS/ML) SYG SC SCH (21:36)
[2018-12-08 01:56] VITALS: BP 130/81; PULSE 93; RESP 18
[2018-12-08] MEDS: SPIRONOLACTONE 50 MG TAB PO SCH ×2 (05:22→17:52)
[2018-12-08] MEDS: METOCLOPRAMIDE 10 MG INJ IV SCH ×3 (05:22→21:47)
[2018-12-08 07:30] VITALS: BP 124/82; PULSE 85; RESP 16
[2018-12-08] MEDS: INSULIN ASPART [NOVOLOG] 3 ML PEN SC SCH ×7 (07:57→20:54)
[2018-12-08] MEDS: PANTOPRAZOLE 40 MG INJ IV SCH ×2 (08:08→20:54)
[2018-12-08] MEDS: traMADol 50 MG TAB PO PRN (11:46)
--- NOTE | 2018-12-08 12:23 | CONS ---
Assessment/Plan Assessment/Plan Assessment/Plan (Daily) Assessment/Plan (Daily) 1 upper GI bleeding most probably from the tumor patient has got a adenocarc inoma of the stomach 2. Anemia stable 3. Cirrhosis of liver 4. Portal hypertension Plan Advance to regular diabetic diet Continue Reglan and PPI Patient needs to follow-up with oncology for possible chemotherapy. Consultation Date/Type/Reason Admit Date/Time Dec 06, 2018 at 13:44 Initial Consult Date Date/Time of Note DATE: 12/08/18 TIME: 12:22 24 HR Interval Summary Free Text/Dictation Patient complains of abdominal pain No nausea no vomiting. Tolerating liquid diet Exam/Review of Systems Exam Vitals Vital Signs Date Temp Pulse Resp B/P (MAP) Pulse Ox O2 O2 Flow FiO2 Time Delivery Rate 12/08/18 98.1 85 16 124/82 97 Room Air 07:30 (96) 12/07/18 6.0 08:44 Intake and Output 12/07/18 12/07/18 12/08/18 1515:00 23:00 07:00 IntakeIntake Total 1200 ml 600 ml 300 ml BalanceBalance 1200 ml 600 ml 300 ml Constitutional: alert, oriented, well developed Psych: no complaints, nl mood/affect Head: normocephalic, atraumatic Eyes: nl conjunctiva, EOMI, nl lids, nl sclera, PERRL ENMT: nl external ears & nose, nl lips & teeth, nl nasal mucosa & septum Neck: supple, non-tender Respiratory: clear to auscultation, normal air movement Cardiovascular: regular rate and rhythm, nl pulses Gastrointestinal: soft, nl liver, spleen, non-tender Musculoskeletal: nl extremities to inspection, nl gait and stance Extremities: normal pulses Neurological: PHYSICAL DAMAGE APPRAISER II-XII intact, nl mental status, nl speech, nl strength Skin: nl turgor; No rash or lesions Lymph: nl lymph nodes Results Result Diagram: 12/08/18 0539 12/08/18 0539 Results 24hrs Laboratory Tests Test 12/07/18 13:05 12/07/18 13:13 12/07/18 17:42 12/07/18 19:41 Bedside Glucose 97 101 Hemoglobin 12.3 L 12.1 L Hematocrit 37.7 L 37.2 L Test 12/07/18 20:47 12/08/18 00:41 12/08/18 05:39 12/08/18 07:56 Bedside Glucose 92 90 Hemoglobin 12.1 L 12.8 L Hematocrit 37.2 L 38.8 L White Blood Count 5.5 # Red Blood Count 4.82 Mean Corpuscular Volume 80.5 L Mean Corpuscular 26.6 L Hemoglobin Mean Corpuscular 33.0 Hemoglobin Concent Red Cell Distribution 12.7 Width Platelet Count 176 Mean Platelet Volume 10.0 Immature Granulocytes % 0.200 Neutrophils % Segmented Neutrophils 52 % (Manual) Band Neutrophils % 8 H (Manual) Lymphocytes % Lymphocytes % (Manual) 22 Reactive Lymphocytes 2 H % (Manual) Monocytes % Monocytes % (Manual) 12 H Eosinophils % Eosinophils % (Manual) 4 Basophils % Basophils % (Manual) 1 Nucleated Red Blood 0.0 Cells % Immature Granulocytes # 0.010 Neutrophils # Neutrophils # (Manual) 2.9 Band Neutrophils # 0.4 Lymphocytes (Manual) 1.2 Lymphocytes # Reactive Lymphocytes # 0.1 H Monocytes # Monocytes # (Manual) 0.6 Eosinophils # Basophils # Basophils # (Manual) 0.0 Nucleated Red Blood Cells # Platelet Estimate NORMAL Polychromasia 1+ Anisocytosis 1+ Microcytosis 1+ Sodium Level 140 Potassium Level 3.8 Chloride Level 109 Carbon Dioxide Level 25 Anion Gap 6 Blood Urea Nitrogen 11 Creatinine 0.81 Est Glomerular Filtrat > 60 Rate mL/min Glucose Level 95 Calcium Level 8.3 L Phosphorus Level 3.6 Magnesium Level 2.1 Total Bilirubin 0.4 Direct Bilirubin 0.00 Indirect Bilirubin 0.4 Aspartate Amino 18 Transf (AST/SGOT) Alanine 26 Aminotransferase (ALT/SG PT) Alkaline Phosphatase 65 Total Protein 6.0 L Albumin 2.6 L Globulin 3.40 H Albumin/Globulin Ratio 0.76 Medications Medication Current Medications IV Flush (NS 3 ml) 3 ml PER PROTOCOL IV ; Start 12/06/18 at 14:30 Tramadol HCl (Ultram) 50 mg Q6H PRN PO MODERATE PAIN LEVEL 4-6 Last administered on 12/08/18at 11:46; Admin Dose 50 MG; Start 12/06/18 at 14:30 Spironolactone (Aldactone) 50 mg BID DIURETICS PO Last administered on 12/08/18at 05:22; Admin Dose 50 MG; Start 12/06/18 at 18:00 Insulin Glargine (Lantus) 10 units DAILY@2000 SC Last administered on 12/07/18at 21:36; Admin Dose 4 UNITS; Start 12/06/18 at 20:00 Insulin Aspart (Novolog Insulin Pen) 3 unit WITH MEALS SC Last administered on 12/08/18at 08:06; Admin Dose 3 UNIT; Start 12/06/18 at 18:00 Insulin Aspart (Novolog Insulin Pen) NOVOLOG *MILD* ALGORITHM WITH MEALS BEDTIME SC ; Start 12/06/18 at 18:00 Miscellaneous Information 1 ea NOTE XX ; Start 12/06/18 at 15:00 Glucose (Glutose) 15 gm Q15M PRN PO DECREASED GLUCOSE; Start 12/06/18 at 15:00 Glucose (Glutose) 22.5 gm Q15M PRN PO DECREASED GLUCOSE; Start 12/06/18 at 15:00 Dextrose (D50w Syringe) 25 ml Q15M PRN IV DECREASED GLUCOSE; Start 12/06/18 at 15:00 Dextrose (D50w Syringe) 50 ml Q15M PRN IV DECREASED GLUCOSE; Start 12/06/18 at 15:00 Glucagon (Glucagen) 1 mg Q15M PRN IM DECREASED GLUCOSE; Start 12/06/18 at 15:00 Glucose (Glutose) 15 gm Q15M PRN BUCCAL DECREASED GLUCOSE; Start 12/06/18 at 15:00 Pantoprazole (Protonix Iv) 40 mg BID IV Last administered on 12/08/18at 08:08; Admin Dose 40 MG; Start 12/06/18 at 21:00 Metoclopramide HCl (Reglan) 10 mg Q8 IV Last administered on 12/08/18at 05:22; Admin Dose 10 MG; Start 12/06/18 at 16:00 DEIDRE REYNOLDS MD Dec 08, 2018 12:23
--- NOTE | 2018-12-08 12:25 | PN ---
Date/Time of Note Date/Time of Note DATE: 12/08/18 TIME: 12:22 Assessment/Plan VTE Prophylaxis Risk score (from Ns)>0 risk: 5 SCD applied (from Ns): Yes Pharmacological prophylaxis: NA/contraindicated Pharm contraindication: bleeding Lines/Catheters [facility]from [facility] Saline Lock Assessment/Plan Hospital Course SUBJECTIVE: Tolerating clear liquids. Denies any black tarry stools. OBJECTIVE: Physical Exam General: Adequately build 58 year-old male lying in bed in no apparent distress. HEENT: Normocephalic, atraumatic. Eyes: Anicteric sclerae, conjunctivae clear. ENT: Nasal septum midline, oral mucosa moist. Neck supple, JVD noticed. Respiratory: Bilaterally clear breath sounds. No use of accessory muscles of respiration. No adventitious breath sounds. Cardiovascular: S1, S2 heard. Regular rate and rhythm. Abdomen: Distended and nontender. Genitourinary: Deferred. Extremities: No cyanosis, no clubbing, no edema. Peripheral pulses palpable. Neurologic: Cranial nerves II through XII grossly intact. The patient is awake, alert, and oriented. Skin: Normal skin turgor. No skin rashes. Labs & Vitals per chart ASSESSMENT & PLAN 58-year-old male with comorbidities including diabetes mellitus type 2, anemia, cirrhosis of the liver, prior alcoholism, and adenocarcinoma of the the stomach in 2016, with recurrence in 2019 (biopsy positive on 11/26/2018) who came to the emergency room with chief complaint of multiple episodes of vomiting and diarrhea that was reported to as black tarry, who was admitted to inpatient setting for further treatment and evaluation. 1. Hematemesis/melena. -Status post esophagogastroduodenoscopy on 12/07/2018 that showed infiltrating lesion with ulceration in the midportion of the body of the stomach extending all the way to the GE junction; the lesion near the GE junction was very friable would bleed easily upon touching and fresh blood was seen there. Severe gastroparesis with undigested food occupying 80% of the proximal part of the body of the stomach, gastritis, and erosive esophagitis. -Continue proton pump inhibitors. -Continue Reglan. -Monitor H&H closely. -If further bleeding may need hemo-spray and transfer to another facility that has hemo-spray. 2. Sepsis with leukocytosis, bandemia, tachycardia, and lactic acidosis, present on admission. -Etiology could be underlying spontaneous bacterial peritonitis (Ascitic fluid WBC of 891 and fluid polynuclear WBC of 16.3) . -Continue empiric antimicrobials. 3. Ascites. -Etiology could be secondary to underlying hepatic cirrhosis. -Status post ultrasound-guided paracentesis on 12/06/2018 with drainage of 4.8 L of fluid.. 4 Diabetes mellitus type 2. -Continue the patient on sliding scale insulin with basal insulin and pre-meal insulin. -Hemoglobin A1c 7.1. 5 Adenocarcinoma of the stomach. -Pathology from 11/26 2018 + for adenocarcinoma that is moderately differentiated. -Outpatient follow-up with oncology. 6. Fluids, electrolytes, and nutrition. -Clear liquids. 7. DVT prophylaxis. -Bilateral SCDs. 8. Plan. -Monitor H&H closely. -If further bleeding and drop in H&H, the patient may need to be transferred to an outside facility where he can have hemo-spray. -Advance diet to carbohydrate controlled. -If able to tolerate regular consistency diet, the patient can be discharged, to be followed up with outpatient oncology. The patient was seen in collaboration with Dr. Noriega. Result Diagram: 12/08/18 0539 12/08/18 0539 Results 24hrs Laboratory Tests Test 12/07/18 13:05 12/07/18 13:13 12/07/18 17:42 12/07/18 19:41 Bedside Glucose 97 101 Hemoglobin 12.3 L 12.1 L Hematocrit 37.7 L 37.2 L Test 12/07/18 20:47 12/08/18 00:41 12/08/18 05:39 12/08/18 07:56 Bedside Glucose 92 90 Hemoglobin 12.1 L 12.8 L Hematocrit 37.2 L 38.8 L White Blood Count 5.5 # Red Blood Count 4.82 Mean Corpuscular Volume 80.5 L Mean Corpuscular 26.6 L Hemoglobin Mean Corpuscular 33.0 Hemoglobin Concent Red Cell Distribution 12.7 Width Platelet Count 176 Mean Platelet Volume 10.0 Immature Granulocytes % 0.200 Neutrophils % Segmented Neutrophils 52 % (Manual) Band Neutrophils % 8 H (Manual) Lymphocytes % Lymphocytes % (Manual) 22 Reactive Lymphocytes 2 H % (Manual) Monocytes % Monocytes % (Manual) 12 H Eosinophils % Eosinophils % (Manual) 4 Basophils % Basophils % (Manual) 1 Nucleated Red Blood 0.0 Cells % Immature Granulocytes # 0.010 Neutrophils # Neutrophils # (Manual) 2.9 Band Neutrophils # 0.4 Lymphocytes (Manual) 1.2 Lymphocytes # Reactive Lymphocytes # 0.1 H Monocytes # Monocytes # (Manual) 0.6 Eosinophils # Basophils # Basophils # (Manual) 0.0 Nucleated Red Blood Cells # Platelet Estimate NORMAL Polychromasia 1+ Anisocytosis 1+ Microcytosis 1+ Sodium Level 140 Potassium Level 3.8 Chloride Level 109 Carbon Dioxide Level 25 Anion Gap 6 Blood Urea Nitrogen 11 Creatinine 0.81 Est Glomerular Filtrat > 60 Rate mL/min Glucose Level 95 Calcium Level 8.3 L Phosphorus Level 3.6 Magnesium Level 2.1 Total Bilirubin 0.4 Direct Bilirubin 0.00 Indirect Bilirubin 0.4 Aspartate Amino 18 Transf (AST/SGOT) Alanine 26 Aminotransferase (ALT/SG PT) Alkaline Phosphatase 65 Total Protein 6.0 L Albumin 2.6 L Globulin 3.40 H Albumin/Globulin Ratio 0.76 Exam/Review of Systems Exam Vitals Vital Signs Date Temp Pulse Resp B/P (MAP) Pulse Ox O2 O2 Flow FiO2 Time Delivery Rate 12/08/18 98.1 85 16 124/82 97 Room Air 07:30 (96) 12/07/18 6.0 08:44 Intake and Output 12/07/18 12/07/18 12/08/18 1515:00 23:00 07:00 IntakeIntake Total 1200 ml 600 ml 300 ml BalanceBalance 1200 ml 600 ml 300 ml Results Results 24hrs Laboratory Tests Test 12/07/18 13:05 12/07/18 13:13 12/07/18 17:42 12/07/18 19:41 Bedside Glucose 97 101 Hemoglobin 12.3 L 12.1 L Hematocrit 37.7 L 37.2 L Test 12/07/18 20:47 12/08/18 00:41 12/08/18 05:39 12/08/18 07:56 Bedside Glucose 92 90 Hemoglobin 12.1 L 12.8 L Hematocrit 37.2 L 38.8 L White Blood Count 5.5 # Red Blood Count 4.82 Mean Corpuscular Volume 80.5 L Mean Corpuscular 26.6 L Hemoglobin Mean Corpuscular 33.0 Hemoglobin Concent Red Cell Distribution 12.7 Width Platelet Count 176 Mean Platelet Volume 10.0 Immature Granulocytes % 0.200 Neutrophils % Segmented Neutrophils 52 % (Manual) Band Neutrophils % 8 H (Manual) Lymphocytes % Lymphocytes % (Manual) 22 Reactive Lymphocytes 2 H % (Manual) Monocytes % Monocytes % (Manual) 12 H Eosinophils % Eosinophils % (Manual) 4 Basophils % Basophils % (Manual) 1 Nucleated Red Blood 0.0 Cells % Immature Granulocytes # 0.010 Neutrophils # Neutrophils # (Manual) 2.9 Band Neutrophils # 0.4 Lymphocytes (Manual) 1.2 Lymphocytes # Reactive Lymphocytes # 0.1 H Monocytes # Monocytes # (Manual) 0.6 Eosinophils # Basophils # Basophils # (Manual) 0.0 Nucleated Red Blood Cells # Platelet Estimate NORMAL Polychromasia 1+ Anisocytosis 1+ Microcytosis 1+ Sodium Level 140 Potassium Level 3.8 Chloride Level 109 Carbon Dioxide Level 25 Anion Gap 6 Blood Urea Nitrogen 11 Creatinine 0.81 Est Glomerular Filtrat > 60 Rate mL/min Glucose Level 95 Calcium Level 8.3 L Phosphorus Level 3.6 Magnesium Level 2.1 Total Bilirubin 0.4 Direct Bilirubin 0.00 Indirect Bilirubin 0.4 Aspartate Amino 18 Transf (AST/SGOT) Alanine 26 Aminotransferase (ALT/SG PT) Alkaline Phosphatase 65 Total Protein 6.0 L Albumin 2.6 L Globulin 3.40 H Albumin/Globulin Ratio 0.76 Medications Medication Current Medications IV Flush (NS 3 ml) 3 ml PER PROTOCOL IV ; Start 12/06/18 at 14:30 Tramadol HCl (Ultram) 50 mg Q6H PRN PO MODERATE PAIN LEVEL 4-6 Last ad ministered on 12/08/18at 11:46; Admin Dose 50 MG; Start 12/06/18 at 14:30 Spironolactone (Aldactone) 50 mg BID DIURETICS PO Last administered on 12/08/18at 05:22; Admin Dose 50 MG; Start 12/06/18 at 18:00 Insulin Glargine (Lantus) 10 units DAILY@2000 SC Last administered on 12/07/18at 21:36; Admin Dose 4 UNITS; Start 12/06/18 at 20:00 Insulin Aspart (Novolog Insulin Pen) 3 unit WITH MEALS SC Last administered on 12/08/18at 08:06; Admin Dose 3 UNIT; Start 12/06/18 at 18:00 Insulin Aspart (Novolog Insulin Pen) NOVOLOG *MILD* ALGORITHM WITH MEALS BEDTIME SC ; Start 12/06/18 at 18:00 Miscellaneous Information 1 ea NOTE XX ; Start 12/06/18 at 15:00 Glucose (Glutose) 15 gm Q15M PRN PO DECREASED GLUCOSE; Start 12/06/18 at 15:00 Glucose (Glutose) 22.5 gm Q15M PRN PO DECREASED GLUCOSE; Start 12/06/18 at 15:00 Dextrose (D50w Syringe) 25 ml Q15M PRN IV DECREASED GLUCOSE; Start 12/06/18 at 15:00 Dextrose (D50w Syringe) 50 ml Q15M PRN IV DECREASED GLUCOSE; Start 12/06/18 at 15:00 Glucagon (Glucagen) 1 mg Q15M PRN IM DECREASED GLUCOSE; Start 12/06/18 at 15:00 Glucose (Glutose) 15 gm Q15M PRN BUCCAL DECREASED GLUCOSE; Start 12/06/18 at 15:00 Pantoprazole (Protonix Iv) 40 mg BID IV Last administered on 12/08/18at 08:08; Admin Dose 40 MG; Start 12/06/18 at 21:00 Metoclopramide HCl (Reglan) 10 mg Q8 IV Last administered on 12/08/18at 05:22; Admin Dose 10 MG; Start 12/06/18 at 16:00 BRAYAN GUERRERO NP Dec 08, 2018 12:25
[2018-12-08 14:27] VITALS: BP 144/87; PULSE 91; RESP 17
[2018-12-08 19:19] VITALS: BP 137/85; PULSE 96; RESP 18
[2018-12-08] MEDS: INSULIN GLARGINE [LANTus] (100 UNITS/ML) SYG SC SCH (20:53)
[2018-12-09 01:16] VITALS: BP 138/80; PULSE 91; RESP 18
[2018-12-09] MEDS: METOCLOPRAMIDE 10 MG INJ IV SCH ×3 (05:39→21:25)
[2018-12-09] MEDS: SPIRONOLACTONE 50 MG TAB PO SCH ×2 (05:40→17:50)
[2018-12-09 07:42] VITALS: BP 139/79; PULSE 94; RESP 16
[2018-12-09] MEDS: INSULIN ASPART [NOVOLOG] 3 ML PEN SC SCH ×7 (07:50→20:44)
[2018-12-09] MEDS: PANTOPRAZOLE 40 MG INJ IV SCH ×2 (08:37→20:42)
--- NOTE | 2018-12-09 08:48 | CONS ---
Assessment/Plan Assessment/Plan Hospital Course (Demo Recall) 58 yo male Interval hx: HH stable in 12s. WBC in ascites fluid 891. Denies abdominal pain. Afebrile. Mild nausea. 1. Upper GI bleeding most probably from the tumor patient has got a ad enocarcinoma of the stomach 2. Anemia -mild and stable 3. Cirrhosis of liver -LFTs wnl 4. Portal hypertension 5. SBP Plan Ceftriaxone 2 gm QD IVPH Advance to regular diabetic diet Continue Reglan and PPI and aldactone Oncology for chemo Pt examined and plan of care discussed with Dr. Han Consultation Date/Type/Reason Admit Date/Time Dec 06, 2018 at 13:44 Initial Consult Date Date/Time of Note DATE: 12/09/18 TIME: 08:41 Exam/Review of Systems Exam Vitals Vital Signs Date Temp Pulse Resp B/P (MAP) Pulse Ox O2 O2 Flow FiO2 Time Delivery Rate 12/09/18 98.4 94 16 139/79 98 07:42 (99) 12/08/18 Room Air 14:27 12/07/18 6.0 08:44 Intake and Output 12/08/18 12/08/18 12/09/18 1414:59 22:59 06:59 IntakeIntake Total 960 ml 360 ml BalanceBalance 960 ml 360 ml Constitutional: alert, oriented Psych: no complaints Head: normocephalic Eyes: PERRL ENMT: mucosa pink and moist Respiratory: clear to auscultation Cardiovascular: regular rate and rhythm Gastrointestinal: distended Musculoskeletal: nl gait and stance Extremities: normal pulses Neurological: nl mental status, nl speech Results Result Diagram: 12/09/18 0429 12/09/18 0429 Results 24hrs Laboratory Tests Test 12/08/18 13:22 12/08/18 17:51 12/08/18 20:52 12/09/18 04:29 Bedside Glucose 86 94 107 White Blood Count 6.6 Red Blood Count 4.84 Hemoglobin 12.7 L Hematocrit 38.7 L Mean Corpuscular Volume 80.0 L Mean Corpuscular 26.2 L Hemoglobin Mean Corpuscular 32.8 Hemoglobin Concent Red Cell Distribution 12.7 Width Platelet Count 150 Mean Platelet Volume 10.1 Immature Granulocytes % 0.300 Neutrophils % 69.8 Segmented Neutrophils 67 % (Manual) Band Neutrophils % 5 H (Manual) Lymphocytes % 16.8 Lymphocytes % (Manual) 16 Reactive Lymphocytes 1 H % (Manual) Monocytes % 11.3 H Monocytes % (Manual) 8 Eosinophils % 1.5 Eosinophils % (Manual) 2 Basophils % 0.3 Basophils % (Manual) 1 Nucleated Red Blood 0.0 Cells % Immature Granulocytes # 0.020 Neutrophils # 4.6 Neutrophils # (Manual) 4.4 Band Neutrophils # 0.3 Lymphocytes (Manual) 1.0 Lymphocytes # 1.1 Reactive Lymphocytes # 0.0 Monocytes # 0.7 Monocytes # (Manual) 0.5 Eosinophils # 0.1 Basophils # 0.0 Basophils # (Manual) 0.0 Nucleated Red Blood 0.0 Cells # Platelet Estimate NORMAL Polychromasia 1+ Poikilocytosis 1+ Anisocytosis 1+ Microcytosis 1+ Macrocytosis 1+ Sodium Level 139 Potassium Level 3.6 Chloride Level 108 Carbon Dioxide Level 24 Anion Gap 7 Blood Urea Nitrogen 12 Creatinine 0.74 Est Glomerular Filtrat > 60 Rate mL/min Glucose Level 88 Calcium Level 8.1 L Phosphorus Level 3.8 Magnesium Level 2.1 Total Bilirubin 0.4 Direct Bilirubin 0.00 Indirect Bilirubin 0.4 Aspartate Amino 24 Transf (AST/SGOT) Alanine 27 Aminotransferase (ALT/SG PT) Alkaline Phosphatase 71 Total Protein 6.0 L Albumin 2.6 L Globulin 3.40 H Albumin/Globulin Ratio 0.76 Test 12/09/18 07:41 Bedside Glucose 89 Medications Medication Current Medications IV Flush (NS 3 ml) 3 ml PER PROTOCOL IV ; Start 12/06/18 at 14:30 Tramadol HCl (Ultram) 50 mg Q6H PRN PO MODERATE PAIN LEVEL 4-6 Last administered on 12/08/18at 11:46; Admin Dose 50 MG; Start 12/06/18 at 14:30 Spironolactone (Aldactone) 50 mg BID DIURETICS PO Last administered on 12/09/18at 05:40; Admin Dose 50 MG; Start 12/06/18 at 18:00 Insulin Glargine (Lantus) 10 units DAILY@2000 SC Last administered on 12/08/18at 20:53; Admin Dose 10 UNITS; Start 12/06/18 at 20:00 Insulin Aspart (Novolog Insulin Pen) 3 unit WITH MEALS SC Last administered on 12/08/18at 17:54; Admin Dose 3 UNIT; Start 12/06/18 at 18:00 Insulin Aspart (Novolog Insulin Pen) NOVOLOG *MILD* ALGORITHM WITH MEALS BEDTIME SC ; Start 12/06/18 at 18:00 Miscellaneous Information 1 ea NOTE XX ; Start 12/06/18 at 15:00 Glucose (Glutose) 15 gm Q15M PRN PO DECREASED GLUCOSE; Start 12/06/18 at 15:00 Glucose (Glutose) 22.5 gm Q15M PRN PO DECREASED GLUCOSE; Start 12/06/18 at 15:00 Dextrose (D50w Syringe) 25 ml Q15M PRN IV DECREASED GLUCOSE; Start 12/06/18 at 15:00 Dextrose (D50w Syringe) 50 ml Q15M PRN IV DECREASED GLUCOSE; Start 12/06/18 at 15:00 Glucagon (Glucagen) 1 mg Q15M PRN IM DECREASED GLUCOSE; Start 12/06/18 at 15:00 Glucose (Glutose) 15 gm Q15M PRN BUCCAL DECREASED GLUCOSE; Start 12/06/18 at 15:00 Pantoprazole (Protonix Iv) 40 mg BID IV Last administered on 12/08/18at 20:54; Admin Dose 40 MG; Start 12/06/18 at 21:00 Metoclopramide HCl (Reglan) 10 mg Q8 IV Last administered on 12/09/18at 05:39; Admin Dose 10 MG; Start 12/06/18 at 16:00 STEVENSON ZIMMERMAN Dec 09, 2018 08:48
[2018-12-09] MEDS: CEFTRIAXONE 2 GM/50 ML (PMX) 50 ML IVPB SCH (12:34)
--- NOTE | 2018-12-09 12:54 | PN ---
Date/Time of Note Date/Time of Note DATE: 12/09/18 TIME: 12:49 Assessment/Plan VTE Prophylaxis Risk score (from Ns)>0 risk: 5 SCD applied (from [facility] [place]): Yes SCD contraindicated: low risk/ambulating Pharmacological prophylaxis: NA/contraindicated Pharm contraindication: low risk/ambulating Lines/Catheters IV C[facility]ter Type (from [email or web address] Saline Lock Assessment/Plan Hospital Course A/P 1. GI bleed/ upper/ melena, sp EGD, stable continue PPI; prn Hemo-Center/ Transfer vs Teritary Care/ P-Gastrectomy? 2. Recurrent stomach ca, stable, restart chemo when stable 3. 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 4. H/o Ca Stomach '16 (Adeno), sp neoadjuvant chemo; Her2 negative. Dr Barbosa prn 5. Portal hypertension 6. Possible SBP 7 Cirrhosis, stable 8. Ascites 9. Past alcoholism 10. Anemia 11. PUD 12. Diabetes 13. Metabolic syndrome 14. Constipation 15. Pulmonary/ hepatic nodules, subcentimeter, Unclear etiology. 16. Possible [place] 17. Chronic liver disease [place]: Portal hypertension/thrombocytopenia/ascites; adjust lactulose 18. Esophagitison EGD. Stomach biopsies taken. 19. Esophageal varices no active bleeding Subjective: Events noted Objective: Vital signs stable Physical exam Pallor adenopathy Regular Clear Bs+/ dimin nt nd no RRG No edema Result Diagram: 12/09/189 12/09/189 Results 24hrs Laboratory Tests Test 12/08/18 13:22 12/08/18 17:51 12/08/18 20:52 12/09/18 04:29 Bedside Glucose 86 94 107 White Blood Count 6.6 Red Blood Count 4.84 Hemoglobin 12.7 L Hematocrit 38.7 L Mean Corpuscular Volume 80.0 L Mean Corpuscular 26.2 L Hemoglobin Mean Corpuscular 32.8 Hemoglobin Concent Red Cell Distribution 12.7 Width Platelet Count 150 Mean Platelet Volume 10.1 Immature Granulocytes % 0.300 Neutrophils % 69.8 Segmented Neutrophils 67 % (Manual) Band Neutrophils % 5 H (Manual) Lymphocytes % 16.8 Lymphocytes % (Manual) 16 Reactive Lymphocytes 1 H % (Manual) Monocytes % 11.3 H Monocytes % (Manual) 8 Eosinophils % 1.5 Eosinophils % (Manual) 2 Basophils % 0.3 Basophils % (Manual) 1 Nucleated Red Blood 0.0 Cells % Immature Granulocytes # 0.020 Neutrophils # 4.6 Neutrophils # (Manual) 4.4 Band Neutrophils # 0.3 Lymphocytes (Manual) 1.0 Lymphocytes # 1.1 Reactive Lymphocytes # 0.0 Monocytes # 0.7 Monocytes # (Manual) 0.5 Eosinophils # 0.1 Basophils # 0.0 Basophils # (Manual) 0.0 Nucleated Red Blood 0.0 Cells # Platelet Estimate NORMAL Polychromasia 1+ Poikilocytosis 1+ Anisocytosis 1+ Microcytosis 1+ Macrocytosis 1+ Sodium Level 139 Potassium Level 3.6 Chloride Level 108 Carbon Dioxide Level 24 Anion Gap 7 Blood Urea Nitrogen 12 Creatinine 0.74 Est Glomerular Filtrat > 60 Rate mL/min Glucose Level 88 Calcium Level 8.1 L Phosphorus Level 3.8 Magnesium Level 2.1 Total Bilirubin 0.4 Direct Bilirubin 0.00 Indirect Bilirubin 0.4 Aspartate Amino 24 Transf (AST/SGOT) Alanine 27 Aminotransferase (ALT/SG PT) Alkaline Phosphatase 71 Total Protein 6.0 L Albumin 2.6 L Globulin 3.40 H Albumin/Globulin Ratio 0.76 Test 12/09/18 07:41 12/09/18 12:08 Bedside Glucose 89 98 Exam/Review of Systems Exam Vitals Vital Signs Date Temp Pulse Resp B/P (MAP) Pulse Ox O2 O2 Flow FiO2 Time Delivery Rate 12/09/18 98.4 94 16 139/79 98 07:42 (99) 12/08/18 Room Air 14:27 12/07/18 6.0 08:44 Intake and Output 12/08/18 12/08/18 12/09/18 1515:00 23:00 07:00 IntakeIntake Total 960 ml 360 ml BalanceBalance 960 ml 360 ml Results Results 24hrs Laboratory Tests Test 12/08/18 13:22 12/08/18 17:51 12/08/18 20:52 12/09/18 04:29 Bedside Glucose 86 94 107 White Blood Count 6.6 Red Blood Count 4.84 Hemoglobin 12.7 L Hematocrit 38.7 L Mean Corpuscular Volume 80.0 L Mean Corpuscular 26.2 L Hemoglobin Mean Corpuscular 32.8 Hemoglobin Concent Red Cell Distribution 12.7 Width Platelet Count 150 Mean Platelet Volume 10.1 Immature Granulocytes % 0.300 Neutrophils % 69.8 Segmented Neutrophils 67 % (Manual) Band Neutrophils % 5 H (Manual) Lymphocytes % 16.8 Lymphocytes % (Manual) 16 Reactive Lymphocytes 1 H % (Manual) Monocytes % 11.3 H Monocytes % (Manual) 8 Eosinophils % 1.5 Eosinophils % (Manual) 2 Basophils % 0.3 Basophils % (Manual) 1 Nucleated Red Blood 0.0 Cells % Immature Granulocytes # 0.020 Neutrophils # 4.6 Neutrophils # (Manual) 4.4 Band Neutrophils # 0.3 Lymphocytes (Manual) 1.0 Lymphocytes # 1.1 Reactive Lymphocytes # 0.0 Monocytes # 0.7 Monocytes # (Manual) 0.5 Eosinophils # 0.1 Basophils # 0.0 Basophils # (Manual) 0.0 Nucleated Red Blood 0.0 Cells # Platelet Estimate NORMAL Polychromasia 1+ Poikilocytosis 1+ Anisocytosis 1+ Microcytosis 1+ Macrocytosis 1+ Sodium Level 139 Potassium Level 3.6 Chloride Level 108 Carbon Dioxide Level 24 Anion Gap 7 Blood Urea Nitrogen 12 Creatinine 0.74 Est Glomerular Filtrat > 60 Rate mL/min Glucose Level 88 Calcium Level 8.1 L Phosphorus Level 3.8 Magnesium Level 2.1 Total Bilirubin 0.4 Direct Bilirubin 0.00 Indirect Bilirubin 0.4 Aspartate Amino 24 Transf (AST/SGOT) Alanine 27 Aminotransferase (ALT/SG PT) Alkaline Phosphatase 71 Total Protein 6.0 L Albumin 2.6 L Globulin 3.40 H Albumin/Globulin Ratio 0.76 Test 12/09/18 07:41 12/09/18 12:08 Bedside Glucose 89 98 Medications Medication Current Medications IV Flush (NS 3 ml) 3 ml PER PROTOCOL IV ; Start 12/06/18 at 14:30 Tramadol HCl (Ultram) 50 mg Q6H PRN PO MODERATE PAIN LEVEL 4-6 Last ad ministered on 12/08/18at 11:46; Admin Dose 50 MG; Start 12/06/18 at 14:30 Spironolactone (Aldactone) 50 mg BID DIURETICS PO Last administered on 12/09/18at 05:40; Admin Dose 50 MG; Start 12/06/18 at 18:00 Insulin Glargine (Lantus) 10 units DAILY@2000 SC Last administered on 12/08/18at 20:53; Admin Dose 10 UNITS; Start 12/06/18 at 20:00 Insulin Aspart (Novolog Insulin Pen) 3 unit WITH MEALS SC Last administered on 12/09/18at 12:39; Admin Dose 3 UNIT; Start 12/06/18 at 18:00 Insulin Aspart (Novolog Insulin Pen) NOVOLOG *MILD* ALGORITHM WITH MEALS BEDTIME SC ; Start 12/06/18 at 18:00 Miscellaneous Information 1 ea NOTE XX ; Start 12/06/18 at 15:00 Glucose (Glutose) 15 gm Q15M PRN PO DECREASED GLUCOSE; Start 12/06/18 at 15:00 Glucose (Glutose) 22.5 gm Q15M PRN PO DECREASED GLUCOSE; Start 12/06/18 at 15:00 Dextrose (D50w Syringe) 25 ml Q15M PRN IV DECREASED GLUCOSE; Start 12/06/18 at 15:00 Dextrose (D50w Syringe) 50 ml Q15M PRN IV DECREASED GLUCOSE; Start 12/06/18 at 15:00 Glucagon (Glucagen) 1 mg Q15M PRN IM DECREASED GLUCOSE; Start 12/06/18 at 15:00 Glucose (Glutose) 15 gm Q15M PRN BUCCAL DECREASED GLUCOSE; Start 12/06/18 at 15:00 Pantoprazole (Protonix Iv) 40 mg BID IV Last administered on 12/09/18at 08:37; Admin Dose 40 MG; Start 12/06/18 at 21:00 Metoclopramide HCl (Reglan) 10 mg Q8 IV Last administered on 12/09/18at 05:39; Admin Dose 10 MG; Start 12/06/18 at 16:00 Ceftriaxone Sodium 50 ml @ 100 mls/hr Q24H IVPB Last administered on 12/09/18at 12:34; Admin Dose 100 MLS/HR; Start 12/09/18 at 10:00 JANIE CARNEY MD Dec 09, 2018 12:54
[2018-12-09 13:57] VITALS: BP 140/81; PULSE 103; RESP 16
[2018-12-09] MEDS: traMADol 50 MG TAB PO PRN ×2 (17:58→23:31)
[2018-12-09 19:25] VITALS: BP 131/92; PULSE 99
[2018-12-09] MEDS: INSULIN GLARGINE [LANTus] (100 UNITS/ML) SYG SC SCH (20:43)
[2018-12-10 01:21] VITALS: BP 136/87; PULSE 91; RESP 18
[2018-12-10] MEDS ORDERED: ZOLPIDEM 5 MG TAB PO PRN (01:30)
[2018-12-10] MEDS: METOCLOPRAMIDE 10 MG INJ IV SCH ×3 (05:44→22:17)
[2018-12-10] MEDS: SPIRONOLACTONE 50 MG TAB PO SCH ×2 (05:44→17:59)
[2018-12-10 07:45] VITALS: BP 130/88; PULSE 95; RESP 17
[2018-12-10] MEDS: INSULIN ASPART [NOVOLOG] 3 ML PEN SC SCH ×7 (08:00→21:00)
[2018-12-10] MEDS: PANTOPRAZOLE 40 MG INJ IV SCH ×2 (08:42→21:00)
[2018-12-10] MEDS: CEFTRIAXONE 2 GM/50 ML (PMX) 50 ML IVPB SCH (08:51)
--- NOTE | 2018-12-10 09:33 | CONS ---
Assessment/Plan Assessment/Plan Hospital Course (Demo Recall) 58 yo male Interval hx: HH stable in 12s. WBC in ascites fluid 891. Denies abdominal pain. Afebrile. Mild nausea continues. Is having BM. No evidence of GI bleeding. tolerating diet 1. 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 Anemia -mild and stable 3. Cirrhosis of liver -LFTs wnl 4. Portal hypertension 5. SBP Plan continue with Ceftriaxone 2 gm QD IVPB Continue Reglan and PPI and aldactone Pt examined and plan of care discussed with Dr. Han Consultation Date/Type/Reason Admit Date/Time Dec 06, 2018 at 13:44 Initial Consult Date Date/Time of Note DATE: 12/10/18 TIME: 09:31 Exam/Review of Systems Exam Vitals Vital Signs Date Temp Pulse Resp B/P (MAP) Pulse Ox O2 O2 Flow FiO2 Time Delivery Rate 12/10/18 97.7 95 17 130/88 98 Room Air 07:45 (102) 12/07/18 6.0 08:44 Intake and Output 12/09/18 12/09/18 12/10/18 1414:59 22:59 06:59 IntakeIntake Total 800 ml 610 ml BalanceBalance 800 ml 610 ml Constitutional: alert, oriented Psych: no complaints Head: normocephalic Eyes: PERRL ENMT: mucosa pink and moist Gastrointestinal: soft, non-tender, ascites Musculoskeletal: nl extremities to inspection Neurological: nl mental status, nl speech Results Result Diagram: 12/10/18 0427 12/10/18 0427 Results 24hrs Laboratory Tests Test 12/09/18 12:08 12/09/18 17:36 12/09/18 20:40 12/10/18 04:27 Bedside Glucose 98 122 105 White Blood Count 6.9 Red Blood Count 4.84 Hemoglobin 12.6 L Hematocrit 38.3 L Mean Corpuscular Volume 79.1 L Mean Corpuscular 26.0 L Hemoglobin Mean Corpuscular 32.9 Hemoglobin Concent Red Cell Distribution 12.7 Width Platelet Count 141 Mean Platelet Volume 9.7 Immature Granulocytes % 0.300 Neutrophils % 65.0 Lymphocytes % 20.0 Monocytes % 12.8 H Eosinophils % 1.6 Basophils % 0.3 Nucleated Red Blood 0.0 Cells % Immature Granulocytes # 0.020 Neutrophils # 4.5 Lymphocytes # 1.4 Monocytes # 0.9 Eosinophils # 0.1 Basophils # 0.0 Nucleated Red Blood 0.0 Cells # Sodium Level 140 Potassium Level 3.5 Chloride Level 106 Carbon Dioxide Level 23 Anion Gap 11 Blood Urea Nitrogen 13 Creatinine 0.77 Est Glomerular Filtrat > 60 Rate mL/min Glucose Level 77 Calcium Level 8.3 L Total Bilirubin 0.3 Direct Bilirubin 0.00 Indirect Bilirubin 0.3 Aspartate Amino 22 Transf (AST/SGOT) Alanine 21 Aminotransferase (ALT/SG PT) Alkaline Phosphatase 67 Total Protein 6.1 Albumin 2.6 L Globulin 3.50 H Albumin/Globulin Ratio 0.74 Test 12/10/18 08:40 Bedside Glucose 79 Medications Medication Current Medications IV Flush (NS 3 ml) 3 ml PER PROTOCOL IV ; Start 12/06/18 at 14:30 Tramadol HCl (Ultram) 50 mg Q6H PRN PO MODERATE PAIN LEVEL 4-6 Last administered on 12/09/18at 23:31; Admin Dose 50 MG; Start 12/06/18 at 14:30 Spironolactone (Aldactone) 50 mg BID DIURETICS PO Last administered on 12/10/18at 05:44; Admin Dose 50 MG; Start 12/06/18 at 18:00 Insulin Glargine (Lantus) 10 units DAILY@2000 SC Last administered on 12/09/18at 20:43; Admin Dose 10 UNITS; Start 12/06/18 at 20:00 Insulin Aspart (Novolog Insulin Pen) 3 unit WITH MEALS SC Last administered on 12/10/18at 08:52; Admin Dose 3 UNIT; Start 12/06/18 at 18:00 Insulin Aspart (Novolog Insulin Pen) NOVOLOG *MILD* ALGORITHM WITH MEALS BEDTIME SC ; Start 12/06/18 at 18:00 Miscellaneous Information 1 ea NOTE XX ; Start 12/06/18 at 15:00 Glucose (Glutose) 15 gm Q15M PRN PO DECREASED GLUCOSE; Start 12/06/18 at 15:00 Glucose (Glutose) 22.5 gm Q15M PRN PO DECREASED GLUCOSE; Start 12/06/18 at 15:00 Dextrose (D50w Syringe) 25 ml Q15M PRN IV DECREASED GLUCOSE; Start 12/06/18 at 15:00 Dextrose (D50w Syringe) 50 ml Q15M PRN IV DECREASED GLUCOSE; Start 12/06/18 at 15:00 Glucagon (Glucagen) 1 mg Q15M PRN IM DECREASED GLUCOSE; Start 12/06/18 at 15:00 Glucose (Glutose) 15 gm Q15M PRN BUCCAL DECREASED GLUCOSE; Start 12/06/18 at 15:00 Pantoprazole (Protonix Iv) 40 mg BID IV Last administered on 12/10/18at 08:42; Admin Dose 40 MG; Start 12/06/18 at 21:00 Metoclopramide HCl (Reglan) 10 mg Q8 IV Last administered on 12/10/18at 05:44; Admin Dose 10 MG; Start 12/06/18 at 16:00 Ceftriaxone Sodium 50 ml @ 100 mls/hr Q24H IVPB Last administered on 12/10/18at 08:51; Admin Dose 100 MLS/HR; Start 12/09/18 at 10:00 Zolpidem Tartrate (Ambien) 5 mg HS MAY REPEAT X 1 PRN PO INSOMNIA Last administered on 12/10/18at 01:54; Admin Dose 5 MG; Start 12/10/18 at 01:30 STEVENSON ZIMMERMNA Dec 10, 2018 09:33
[2018-12-10 13:49] VITALS: BP 167/101; PULSE 122; RESP 18
[2018-12-10] MEDS: traMADol 50 MG TAB PO PRN (13:52)
--- NOTE | 2018-12-10 14:12 | PN ---
Date/Time of Note Date/Time of Note DATE: 12/10/18 TIME: 14:11 Assessment/Plan VTE Prophylaxis Risk score (from Ns)>0 risk: 5 [place] [facility] [place] contraindicated: low risk/ambulating Pharmacological prophylaxis: NA/contraindicated Pharm contraindication: bleeding Lines/Catheters IV [facility] Saline Lock Assessment/Plan Hospital Course A/P 1. GI bleed/ upper/ melena, sp EGD, stable cont PPI; prn Hemo-[place]/ Transfer vs Tertiary Care/ P-Gastrectomy? 2. Recurrent stomach ca, stable, restart chemo when stable 3. 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 4. H/o Ca Stomach '16 ([place]o), sp neoadjuvant chemo; Her2 negative. Dr Barbosa prn 5. Portal hypertension 6. Possible SBP, continue antibiotics 7 Cirrhosis, stable 8. Ascites 9. Past alcoholism 10. Anemia 11. PUD 12. Diabetes 13. Metabolic syndrome 14. Constipation 15. Pulmonary/ hepatic nodules, subcentimeter, Unclear etiology. 16. Possible [place] 17. Chronic liver disease [place]: Portal hypertension/thrombocytopenia/ascites; adjust lactulose 18. Esophagitison EGD. Stomach biopsies taken. 19. Esophageal varices no active bleeding Subjective: 12/09 events noted 12/10: No active bleeding. One episode of nausea/vomiting. Objective: Vital signs stable Physical exam no Pallor/ adenopathy Regular Clear Bs+/ dimin nt nd no RRG No edema Result Diagram: 12/10/187 12/10/187 Results 24hrs Laboratory Tests Test 12/09/18 17:36 12/09/18 20:40 12/10/18 04:27 12/10/18 08:40 Bedside Glucose 122 105 79 White Blood Count 6.9 Red Blood Count 4.84 Hemoglobin 12.6 L Hematocrit 38.3 L Mean Corpuscular Volume 79.1 L Mean Corpuscular 26.0 L Hemoglobin Mean Corpuscular 32.9 Hemoglobin Concent Red Cell Distribution 12.7 Width Platelet Count 141 Mean Platelet Volume 9.7 Immature Granulocytes % 0.300 Neutrophils % 65.0 Lymphocytes % 20.0 Monocytes % 12.8 H Eosinophils % 1.6 Basophils % 0.3 Nucleated Red Blood 0.0 Cells % Immature Granulocytes # 0.020 Neutrophils # 4.5 Lymphocytes # 1.4 Monocytes # 0.9 Eosinophils # 0.1 Basophils # 0.0 Nucleated Red Blood 0.0 Cells # Sodium Level 140 Potassium Level 3.5 Chloride Level 106 Carbon Dioxide Level 23 Anion Gap 11 Blood Urea Nitrogen 13 Creatinine 0.77 Est Glomerular Filtrat > 60 Rate mL/min Glucose Level 77 Calcium Level 8.3 L Total Bilirubin 0.3 Direct Bilirubin 0.00 Indirect Bilirubin 0.3 Aspartate Amino 22 Transf (AST/SGOT) Alanine 21 Aminotransferase (ALT/SG PT) Alkaline Phosphatase 67 Total Protein 6.1 Albumin 2.6 L Globulin 3.50 H Albumin/Globulin Ratio 0.74 Test 12/10/18 12:59 Bedside Glucose 79 Exam/Review of Systems Exam Vitals Vital Signs Date Temp Pulse Resp B/P (MAP) Pulse Ox O2 O2 Flow FiO2 Time Delivery Rate 12/10/18 98.3 122 18 167/101 96 Room Air 13:49 (123) 12/07/18 6.0 08:44 Intake and Output 12/09/18 12/09/18 12/10/18 1414:59 22:59 06:59 IntakeIntake Total 800 ml 610 ml BalanceBalance 800 ml 610 ml Results Results 24hrs Laboratory Tests Test 12/09/18 17:36 12/09/18 20:40 12/10/18 04:27 12/10/18 08:40 Bedside Glucose 122 105 79 White Blood Count 6.9 Red Blood Count 4.84 Hemoglobin 12.6 L Hematocrit 38.3 L Mean Corpuscular Volume 79.1 L Mean Corpuscular 26.0 L Hemoglobin Mean Corpuscular 32.9 Hemoglobin Concent Red Cell Distribution 12.7 Width Platelet Count 141 Mean Platelet Volume 9.7 Immature Granulocytes % 0.300 Neutrophils % 65.0 Lymphocytes % 20.0 Monocytes % 12.8 H Eosinophils % 1.6 Basophils % 0.3 Nucleated Red Blood 0.0 Cells % Immature Granulocytes # 0.020 Neutrophils # 4.5 Lymphocytes # 1.4 Monocytes # 0.9 Eosinophils # 0.1 Basophils # 0.0 Nucleated Red Blood 0.0 Cells # Sodium Level 140 Potassium Level 3.5 Chloride Level 106 Carbon Dioxide Level 23 Anion Gap 11 Blood Urea Nitrogen 13 Creatinine 0.77 Est Glomerular Filtrat > 60 Rate mL/min Glucose Level 77 Calcium Level 8.3 L Total Bilirubin 0.3 Direct Bilirubin 0.00 Indirect Bilirubin 0.3 Aspartate Amino 22 Transf (AST/SGOT) Alanine 21 Aminotransferase (ALT/SG PT) Alkaline Phosphatase 67 Total Protein 6.1 Albumin 2.6 L Globulin 3.50 H Albumin/Globulin Ratio 0.74 Test 12/10/18 12:59 Bedside Glucose 79 Medications Medication Current Medications IV Flush (NS 3 ml) 3 ml PER PROTOCOL IV ; Start 12/06/18 at 14:30 Tramadol HCl (Ultram) 50 mg Q6H PRN PO MODERATE PAIN LEVEL 4-6 Last administered on 12/10/18at 13:52; Admin Dose 50 MG; Start 12/06/18 at 14:30 Spironolactone (Aldactone) 50 mg BID DIURETICS PO Last administered on 12/10/18at 05:44; Admin Dose 50 MG; Start 12/06/18 at 18:00 Insulin Glargine (Lantus) 10 units DAILY@2000 SC Last administered on 12/09/18at 20:43; Admin Dose 10 UNITS; Start 12/06/18 at 20:00 Insulin Aspart (Novolog Insulin Pen) 3 unit WITH MEALS SC Last administered on 12/10/18at 13:06; Admin Dose 3 UNIT; Start 12/06/18 at 18:00 Insulin Aspart (Novolog Insulin Pen) NOVOLOG *MILD* ALGORITHM WITH MEALS BEDTIME SC ; Start 12/06/18 at 18:00 Miscellaneous Information 1 ea NOTE XX ; Start 12/06/18 at 15:00 Glucose (Glutose) 15 gm Q15M PRN PO DECREASED GLUCOSE; Start 12/06/18 at 15:00 Glucose (Glutose) 22.5 gm Q15M PRN PO DECREASED GLUCOSE; Start 12/06/18 at 15:00 Dextrose (D50w Syringe) 25 ml Q15M PRN IV DECREASED GLUCOSE; Start 12/06/18 at 15:00 Dextrose (D50w Syringe) 50 ml Q15M PRN IV DECREASED GLUCOSE; Start 12/06/18 at 15:00 Glucagon (Glucagen) 1 mg Q15M PRN IM DECREASED GLUCOSE; Start 12/06/18 at 15:00 Glucose (Glutose) 15 gm Q15M PRN BUCCAL DECREASED GLUCOSE; Start 12/06/18 at 15:00 Pantoprazole (Protonix Iv) 40 mg BID IV Last administered on 12/10/18at 08:42; Admin Dose 40 MG; Start 12/06/18 at 21:00 Metoclopramide HCl (Reglan) 10 mg Q8 IV Last administered on 12/10/18at 13:51; Admin Dose 10 MG; Start 12/06/18 at 16:00 Ceftriaxone Sodium 50 ml @ 100 mls/hr Q24H IVPB Last administered on 12/10/18at 08:51; Admin Dose 100 MLS/HR; Start 12/09/18 at 10:00 Zolpidem Tartrate (Ambien) 5 mg HS MAY REPEAT X 1 PRN PO INSOMNIA Last administered on 12/10/18at 01:54; Admin Dose 5 MG; Start 12/10/18 at 01:30 JANIE CARNEY MD Dec 10, 2018 14:12
[2018-12-10] MEDS ORDERED: ONDANSETRON 4 MG INJ IV PRN (15:30)
[2018-12-10 20:01] VITALS: BP 121/80; PULSE 102; RESP 18
[2018-12-10] MEDS: INSULIN GLARGINE [LANTus] (100 UNITS/ML) SYG SC SCH (21:00)
[2018-12-10] MEDS ORDERED: INSULIN GLARGINE [LANTus] (100 UNITS/ML) SYG SC ONE (23:00)
[2018-12-10] MEDS: HYDROCODONE/APAP (10/325) TAB PO PRN (23:34)
[2018-12-11] MEDS: METOCLOPRAMIDE 10 MG INJ IV SCH (05:43)
[2018-12-11] MEDS: SPIRONOLACTONE 50 MG TAB PO SCH ×2 (05:43→17:31)
[2018-12-11] MEDS: PANTOPRAZOLE 40 MG INJ IV SCH (07:58)
[2018-12-11] MEDS: INSULIN ASPART [NOVOLOG] 3 ML PEN SC SCH ×7 (07:58→20:25)
[2018-12-11 08:27] VITALS: BP 126/88; PULSE 109; RESP 18
[2018-12-11] MEDS: CEFTRIAXONE 2 GM/50 ML (PMX) 50 ML IVPB SCH (09:10)
[2018-12-11] MEDS: HYDROCODONE/APAP (10/325) TAB PO PRN ×3 (09:26→23:57)
[2018-12-11 14:15] VITALS: BP 114/79; PULSE 96; RESP 18
[2018-12-11] MEDS ORDERED: DOCUSATE SODIUM 10 MG/ML (10ML CUP) PO PRN (17:30)
--- NOTE | 2018-12-11 17:30 | PN ---
Date/Time of Note Date/Time of Note DATE: 12/11/18 TIME: 17:29 Assessment/Plan VTE Prophylaxis Risk score (from Ns)>0 risk: 4 SCD applied (from Ns): Yes SCD contraindicated: low risk/ambulating Pharmacological prophylaxis: NA/contraindicated Pharm contraindication: bleeding Lines/Catheters IV [facility]from [facility] Saline Lock Assessment/Plan Hospital Course A/P 1. GI bleed/ upper/ melena, sp EGD, stable cont PPI; prn Hemo-[place]/ Transfer vs Tertiary Care/ P-Gastrectomy. 2. Recurrent stomach ca, stable, restart chemo when stable 3. 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 4. H/o Ca Stomach '16 ([place]), sp neoadjuvant chemo; Her2 negative. Dr Barbosa prn 5. Portal hypertension 6. Possible SBP, continue antibiotics 7 Cirrhosis, stable 8. Ascites 9. Past alcoholism 10. Anemia 11. PUD 12. Diabetes 13. Metabolic syndrome 14. Constipation 15. Pulmonary/ hepatic nodules, subcentimeter, Unclear etiology. 16. Possible [place] 17. Chronic liver disease [place]: Portal hypertension/thrombocytopenia/ascites; adjust lactulose 18. Esophagitison EGD. Stomach biopsies taken. 19. Esophageal varices no active bleeding Subjective: 12/09 events noted 12/10: No active bleeding. One episode of nausea/vomiting. 12/11: Intermittent nausea vomiting. No hematemesis. No BM for 2 days. I updated him and his regarding the challenges of his diagnosis and what they are doing to his symptoms. Recommend 5 small meals spaced out through the day. to attempt chemotherapy as outpatient, otherwise may need J-tube for feeds or ho spice. Objective: Vital signs stable Physical exam no Pallor Regular Clear Bs+/ dimin nt nd no RRG No edema Result Diagram: 12/10/1842612/10/18426 Results 24hrs Laboratory Tests Test 12/10/18 17:58 12/10/18 20:56 12/10/18 22:13 12/10/18 23:27 Bedside Glucose 83 80 83 119 Test 12/11/18 07:57 12/11/18 11:06 12/11/18 12:58 Bedside Glucose 99 104 Lab Scanned Report REFERENCE LAB Exam/Review of Systems Exam Vitals Vital Signs Date Temp Pulse Resp B/P (MAP) Pulse Ox O2 O2 Flow FiO2 Time Delivery Rate 12/11/18 98.6 96 18 114/79 100 Room Air 14:15 (91) 12/07/18 6.0 08:44 Intake and Output 12/10/18 12/10/18 12/11/18 1515:00 23:00 07:00 IntakeIntake Total 170 ml 360 ml BalanceBalance 170 ml 360 ml Results Results 24hrs Laboratory Tests Test 12/10/18 17:58 12/10/18 20:56 12/10/18 22:13 12/10/18 23:27 Bedside Glucose 83 80 83 119 Test 12/11/18 07:57 12/11/18 11:06 12/11/18 12:58 Bedside Glucose 99 104 Lab Scanned Report REFERENCE LAB Medications Medication Current Medications IV Flush (NS 3 ml) 3 ml PER PROTOCOL IV ; Start 12/06/18 at 14:30 Tramadol HCl (Ultram) 50 mg Q6H PRN PO MODERATE PAIN LEVEL 4-6 Last administered on 12/10/18at 13:52; Admin Dose 50 MG; Start 12/06/18 at 14:30 Spironolactone (Aldactone) 50 mg BID DIURETICS PO Last administered on 12/11/18at 05:43; Admin Dose 50 MG; Start 12/06/18 at 18:00 Insulin Aspart (Novolog Insulin Pen) 3 unit WITH MEALS SC Last administered on 12/11/18at 13:02; Admin Dose 3 UNIT; Start 12/06/18 at 18:00 Insulin Aspart (Novolog Insulin Pen) NOVOLOG *MILD* ALGORITHM WITH MEALS BEDTIME SC ; Start 12/06/18 at 18:00 Miscellaneous Information 1 ea NOTE XX ; Start 12/06/18 at 15:00 Glucose (Glutose) 15 gm Q15M PRN PO DECREASED GLUCOSE; Start 12/06/18 at 15:00 Glucose (Glutose) 22.5 gm Q15M PRN PO DECREASED GLUCOSE; Start 12/06/18 at 15:00 Dextrose (D50w Syringe) 25 ml Q15M PRN IV DECREASED GLUCOSE; Start 12/06/18 at 15:00 Dextrose (D50w Syringe) 50 ml Q15M PRN IV DECREASED GLUCOSE; Start 12/06/18 at 15:00 Glucagon (Glucagen) 1 mg Q15M PRN IM DECREASED GLUCOSE; Start 12/06/18 at 15:00 Glucose (Glutose) 15 gm Q15M PRN BUCCAL DECREASED GLUCOSE; Start 12/06/18 at 15:00 Ceftriaxone Sodium 50 ml @ 100 mls/hr Q24H IVPB Last administered on 12/11/18at 09:10; Admin Dose 100 MLS/HR; Start 12/09/18 at 10:00 Zolpidem Tartrate (Ambien) 5 mg HS MAY REPEAT X 1 PRN PO INSOMNIA Last administered on 12/10/18at 01:54; Admin Dose 5 MG; Start 12/10/18 at 01:30 Ondansetron HCl (Zofran Inj) 4 mg Q4H PRN IV NAUSEA AND/OR VOMITING Last admini stered on 12/10/18at 17:59; Admin Dose 4 MG; Start 12/10/18 at 15:30 Acetaminophen/ Hydrocodone Bitart ([place] (10/325)) 1 tab Q6H PRN PO PAIN LEVEL 7-10 Last administered on 12/11/18at 09:26; Admin Dose 1 TAB; Start 12/10/18 at 15:30 Insulin Glargine (Lantus) 9 units DAILY@2000 SC ; Start 12/11/18 at 20:00 Metoclopramide HCl (Reglan Liq) 5 mg Q8 PO ; Start 12/11/18 at 22:00 Pantoprazole (Protonix Tab) 40 mg BID@06,18 PO ; Start 12/11/18 at 18:00 JANIE CARNEY MD Dec 11, 2018 17:30
[2018-12-11] MEDS: PANTOPRAZOLE (EC) 40 MG TAB PO SCH (17:31)
--- NOTE | 2018-12-11 19:26 | CONS ---
Assessment/Plan Assessment/Plan Assessment/Plan (Daily) Hospital Course (Demo Recall) 58 yo male Interval hx: HH stable in 12s. WBC in ascites fluid 891. Denies abdominal pain. Afebrile. Mild nausea continues. Is having BM. No evidence of GI bleeding. tolerating diet 1. Upper GI bleeding most probably from the tumor patient has got a adenocarc inoma of the stomach 2. Anemia -mild and stable 3. Cirrhosis of liver -LFTs wnl 4. Portal hypertension 5. SBP Plan continue with Ceftriaxone 2 gm QD IVPB Continue Reglan and PPI and aldactone Reglan to be given half an hour before each meal Consultation Date/Type/Reason Admit Date/Time Dec 06, 2018 at 13:44 Initial Consult Date Date/Time of Note DATE: 12/11/18 TIME: 19:26 24 HR Interval Summary Free Text/Dictation Patient's abdominal pain improved but continues to have vomiting Exam/Review of Systems Exam Vitals Vital Signs Date Temp Pulse Resp B/P (MAP) Pulse Ox O2 O2 Flow FiO2 Time Delivery Rate 12/11/18 98.6 96 18 114/79 100 Room Air 14:15 (91) 12/07/18 6.0 08:44 Intake and Output 12/10/18 12/10/18 12/11/18 1515:00 23:00 07:00 IntakeIntake Total 170 ml 360 ml BalanceBalance 170 ml 360 ml Constitutional: alert, oriented, well developed Psych: no complaints, nl mood/affect Head: normocephalic, atraumatic Eyes: nl conjunctiva, EOMI, nl lids, nl sclera, PERRL ENMT: nl external ears & nose, nl lips & teeth, nl nasal mucosa & septum Neck: supple, non-tender Respiratory: clear to auscultation, normal air movement Cardiovascular: regular rate and rhythm, nl pulses Gastrointestinal: soft, nl liver, spleen, non-tender Musculoskeletal: nl extremities to inspection, nl gait and stance Extremities: normal pulses Neurological: DIRECTOR CAREER II-XII intact, nl mental status, nl speech, nl strength Skin: nl turgor; No rash or lesions Lymph: nl lymph nodes Results Result Diagram: 12/10/18 0427 12/10/18 0427 Results 24hrs Laboratory Tests Test 12/10/18 20:56 12/10/18 22:13 12/10/18 23:27 12/11/18 07:57 Bedside Glucose 80 83 119 99 Test 12/11/18 11:06 12/11/18 12:58 12/11/18 17:30 Lab Scanned Report REFERENCE LAB Bedside Glucose 104 97 Medications Medication Current Medications IV Flush (NS 3 ml) 3 ml PER PROTOCOL IV ; Start 12/06/18 at 14:30 Tramadol HCl (Ultram) 50 mg Q6H PRN PO MODERATE PAIN LEVEL 4-6 Last administered on 12/10/18at 13:52; Admin Dose 50 MG; Start 12/06/18 at 14:30 Spironolactone (Aldactone) 50 mg BID DIURETICS PO Last administered on 12/11/18at 17:31; Admin Dose 50 MG; Start 12/06/18 at 18:00 Insulin Aspart (Novolog Insulin Pen) 3 unit WITH MEALS SC Last administered on 12/11/18at 17:35; Admin Dose 3 UNIT; Start 12/06/18 at 18:00 Insulin Aspart (Novolog Insulin Pen) NOVOLOG *MILD* ALGORITHM WITH MEALS BEDTIME SC ; Start 12/06/18 at 18:00 Miscellaneous Information 1 ea NOTE XX ; Start 12/06/18 at 15:00 Glucose (Glutose) 15 gm Q15M PRN PO DECREASED GLUCOSE; Start 12/06/18 at 15:00 Glucose (Glutose) 22.5 gm Q15M PRN PO DECREASED GLUCOSE; Start 12/06/18 at 15:00 Dextrose (D50w Syringe) 25 ml Q15M PRN IV DECREASED GLUCOSE; Start 12/06/18 at 15:00 Dextrose (D50w Syringe) 50 ml Q15M PRN IV DECREASED GLUCOSE; Start 12/06/18 at 15:00 Glucagon (Glucagen) 1 mg Q15M PRN IM DECREASED GLUCOSE; Start 12/06/18 at 15:00 Glucose (Glutose) 15 gm Q15M PRN BUCCAL DECREASED GLUCOSE; Start 12/06/18 at 15:00 Ceftriaxone Sodium 50 ml @ 100 mls/hr Q24H IVPB Last administered on 12/11/18at 09:10; Admin Dose 100 MLS/HR; Start 12/09/18 at 10:00 Zolpidem Tartrate (Ambien) 5 mg HS MAY REPEAT X 1 PRN PO INSOMNIA Last administered on 12/10/18at 01:54; Admin Dose 5 MG; Start 12/10/18 at 01:30 Ondansetron HCl (Zofran Inj) 4 mg Q4H PRN IV NAUSEA AND/OR VOMITING Last administered on 12/10/18 17:59; Admin Dose 4 MG; Start 12/10/18 at 15:30 Acetaminophen/ Hydrocodone Bitart ([place] ()) 1 tab Q6H PRN PO PAIN LEVEL 7-10 Last administered on 12/11/18at 17:31; Admin Dose 1 TAB; Start 12/10/18 at 15:30 Insulin Glargine (Lantus) 9 units DAILY@2000 SC ; Start 12/11/18 at 20:00 Metoclopramide HCl (Reglan Liq) 5 mg Q8 PO ; Start 12/11/18 at 22:00 Pantoprazole (Protonix Tab) 40 mg BID@06,18 PO Last administered on 12/11/18 17:31; Admin Dose 40 MG; Start 12/11/18 at 18:00 Docusate Sodium (Colace Liquid Cup) 100 mg BID PRN PO CONSTIPATION; Start 12/11/18 at 17:30 DEIDRE REYNOLDS MD Dec 11, 2018 19:26
[2018-12-11 20:00] VITALS: BP 137/84; PULSE 95; RESP 18
[2018-12-11] MEDS: INSULIN GLARGINE [LANTus] (100 UNITS/ML) SYG SC SCH (20:27)
[2018-12-11] MEDS: METOCLOPRAMIDE (1 MG/ML) 10 ML CUP PO SCH (22:05)
[2018-12-12 02:00] VITALS: BP 132/89; PULSE 92; RESP 18
[2018-12-12] MEDS: PANTOPRAZOLE (EC) 40 MG TAB PO SCH ×2 (05:37→17:17)
[2018-12-12] MEDS: METOCLOPRAMIDE (1 MG/ML) 10 ML CUP PO SCH ×2 (05:38→13:06)
[2018-12-12] MEDS: SPIRONOLACTONE 50 MG TAB PO SCH ×2 (05:38→17:17)
[2018-12-12] MEDS: INSULIN ASPART [NOVOLOG] 3 ML PEN SC SCH ×7 (08:00→20:19)
[2018-12-12 08:02] VITALS: BP 110/81; PULSE 92; RESP 18
[2018-12-12] MEDS: CEFTRIAXONE 2 GM/50 ML (PMX) 50 ML IVPB SCH (10:30)
--- NOTE | 2018-12-12 13:56 | PN ---
Date/Time of Note Date/Time of Note DATE: 12/12/18 TIME: 13:55 Assessment/Plan VTE Prophylaxis Risk score (from Nsg)>0 risk: 3 SCD applied (from Ns): Yes SCD contraindicated: low risk/ambulating Pharmacological prophylaxis: NA/contraindicated Pharm contraindication: low risk/ambulating Lines/Catheters IV Catheter Type (from [facility]): [place] Assessment/Plan Hospital Course A/P 1. GI bleed/ upper/ melena, sp EGD, stable cont PPI; prn Hemo-[place]/ Transfer vs Tertiary Care/ P-Gastrectomy. 2. Recurrent stomach ca, stable, restart chemo when stable 3. 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 4. H/o Ca Stomach '16 (Adeno), sp neoadjuvant chemo; Her2 negative. Dr Barbosa prn 5. Portal hypertension 6. Possible SBP, continue antibiotics 7 Cirrhosis, stable 8. Ascites 9. Past alcoholism 10. Anemia 11. PUD 12. Diabetes 13. Metabolic syndrome 14. Constipation 15. Pulmonary/ hepatic nodules, subcentimeter, Unclear etiology. 16. Possible [place] 17. Chronic liver disease [place]: Portal hypertension/thrombocytopenia/ascites; adjust lactulose 18. Esophagitison EGD. Stomach biopsies taken. 19. Esophageal varices no active bleeding S: 12/09 events noted 12/10: No active bleeding. One episode of nausea/vomiting. 12/11: Intermittent nausea vomiting. No hematemesis. No BM for 2 days. I updated him and his regarding the challenges of his diagnosis and what they are doing to his symptoms. Recommend 5 small meals spaced out through the day. to attempt chemotherapy as outpatient, otherwise may need J-tube for feeds or hospice. 12/12: Feels better wants to go home. Will check with GI regarding antibiotics for SBP. O: Vital signs stable Physical exam no Pallor Regular Clear Bs+/ dimin nt nd no RRG No edema Result Diagram: 12/10/1842612/10/18426 Results 24hrs Laboratory Tests Test 12/11/18 17:30 12/11/18 20:25 12/12/18 08:15 12/12/18 13:07 Bedside Glucose 97 93 117 98 Exam/Review of Systems Exam Vitals Vital Signs Date Temp Pulse Resp B/P (MAP) Pulse Ox O2 O2 Flow FiO2 Time Delivery Rate 12/12/18 98.3 92 18 110/81 99 08:02 (91) 12/12/18 Room Air 02:00 Intake and Output 12/11/18 12/11/18 12/12/18 1515:00 23:00 07:00 IntakeIntake Total 530 ml 360 ml BalanceBalance 530 ml 360 ml Results Results 24hrs Laboratory Tests Test 12/11/18 17:30 12/11/18 20:25 12/12/18 08:15 12/12/18 13:07 Bedside Glucose 97 93 117 98 Medications Medication Current Medications IV Flush (NS 3 ml) 3 ml PER PROTOCOL IV ; Start 12/06/18 at 14:30 Tramadol HCl (Ultram) 50 mg Q6H PRN PO MODERATE PAIN LEVEL 4-6 Last administered on 12/10/18at 13:52; Admin Dose 50 MG; Start 12/06/18 at 14:30 Spironolactone (Aldactone) 50 mg BID DIURETICS PO Last administered on 12/12/18at 05:38; Admin Dose 50 MG; Start 12/06/18 at 18:00 Insulin Aspart (Novolog Insulin Pen) 3 unit WITH MEALS SC Last administered on 12/12/18at 13:13; Admin Dose 3 UNIT; Start 12/06/18 at 18:00 Insulin Aspart (Novolog Insulin Pen) NOVOLOG *MILD* ALGORITHM WITH MEALS BEDTIME SC ; Start 12/06/18 at 18:00 Miscellaneous Information 1 ea NOTE XX ; Start 12/06/18 at 15:00 Glucose (Glutose) 15 gm Q15M PRN PO DECREASED GLUCOSE; Start 12/06/18 at 15:00 Glucose (Glutose) 22.5 gm Q15M PRN PO DECREASED GLUCOSE; Start 12/06/18 at 15:00 Dextrose (D50w Syringe) 25 ml Q15M PRN IV DECREASED GLUCOSE; Start 12/06/18 at 15:00 Dextrose (D50w Syringe) 50 ml Q15M PRN IV DECREASED GLUCOSE; Start 12/06/18 at 15:00 Glucagon (Glucagen) 1 mg Q15M PRN IM DECREASED GLUCOSE; Start 12/06/18 at 15:00 Glucose (Glutose) 15 gm Q15M PRN BUCCAL DECREASED GLUCOSE; Start 12/06/18 at 15:00 Ceftriaxone Sodium 50 ml @ 100 mls/hr Q24H IVPB Last administered on 12/12/18 10:30; Admin Dose 100 MLS/HR; Start 12/09/18 at 10:00 Zolpidem Tartrate (Ambien) 5 mg HS MAY REPEAT X 1 PRN PO INSOMNIA Last administered on 12/10/18 01:54; Admin Dose 5 MG; Start 12/10/18 at 01:30 Ondansetron HCl (Zofran Inj) 4 mg Q4H PRN IV NAUSEA AND/OR VOMITING Last administered on 12/10/18 17:59; Admin Dose 4 MG; Start 12/10/18 at 15:30 Acetaminophen/ Hydrocodone Bitart ([place] ()) 1 tab Q6H PRN PO PAIN LEVEL 7-10 Last administered on 12/11/18 23:57; Admin Dose 1 TAB; Start 12/10/18 at 15:30 Insulin Glargine (Lantus) 9 units DAILY@2000 SC Last administered on 12/11/18 20:27; Admin Dose 9 UNITS; Start 12/11/18 at 20:00 Metoclopramide HCl (Reglan Liq) 5 mg Q8 PO Last administered on 12/12/18 13:06; Admin Dose 5 MG; Start 12/11/18 at 22:00 Pantoprazole (Protonix Tab) 40 mg BID@06,18 PO Last administered on 12/12/18 05:37; Admin Dose 40 MG; Start 12/11/18 at 18:00 Docusate Sodium (Colace Liquid Cup) 100 mg BID PRN PO CONSTIPATION; Start 12/11/18 at 17:30 JANIE CARNEY MD Dec 12, 2018 13:56
[2018-12-12 14:46] VITALS: BP 118/79; PULSE 96; RESP 18
[2018-12-12] MEDS: HYDROCODONE/APAP (10/325) TAB PO PRN ×2 (16:13→21:58)
[2018-12-12 19:50] VITALS: BP 127/80; PULSE 91; RESP 16
--- NOTE | 2018-12-12 20:03 | CONS ---
Assessment/Plan Assessment/Plan Assessment/Plan (Daily) Assessment/Plan (Daily) Hospital Course (Demo Recall) 58 yo male Interval hx: HH stable in 12s. WBC in ascites fluid 891. Denies abdominal pain. Afebrile. Mild nausea continues. Is having BM. No evidence of GI bleeding. tolerating diet 1. 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 Anemia -mild and stable 3. Cirrhosis of liver -LFTs wnl 4. Portal hypertension 5. SBP 6. Emesis mostly related to diabetic gastroparesis patient has no evidence of gastric outlet obstruction from the tumor Plan continue with Ceftriaxone 2 gm QD IVPB Continue Reglan and PPI and aldactone Reglan to be given half an hour before each meal I discussed with the staff to give Reglan before each meal there were not doing it erythromycin as a prokinetic agent Consultation Date/Type/Reason Admit Date/Time Dec 06, 2018 at 13:44 Initial Consult Date Date/Time of Note DATE: 12/12/18 TIME: 20:02 24 HR Interval Summary Free Text/Dictation One episode of emesis Exam/Review of Systems Exam Vitals Vital Signs Date Temp Pulse Resp B/P (MAP) Pulse Ox O2 O2 Flow FiO2 Time Delivery Rate 12/12/18 97.9 96 18 118/79 98 Room Air 14:46 (92) Intake and Output 12/11/18 12/11/18 12/12/18 1515:00 23:00 07:00 IntakeIntake Total 530 ml 360 ml BalanceBalance 530 ml 360 ml Constitutional: alert, oriented, well developed Psych: no complaints, nl mood/affect Head: normocephalic, atraumatic Eyes: nl conjunctiva, EOMI, nl lids, nl sclera, PERRL ENMT: nl external ears & nose, nl lips & teeth, nl nasal mucosa & septum Neck: supple, non-tender Respiratory: clear to auscultation, normal air movement Cardiovascular: regular rate and rhythm, nl pulses Gastrointestinal: soft, nl liver, spleen, non-tender Musculoskeletal: nl extremities to inspection, nl gait and stance Extremities: normal pulses 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, nl mental status, nl speech, nl strength Skin: nl turgor; No rash or lesions Lymph: nl lymph nodes Results Result Diagram: 12/10/1842612/10/18426 Results 24hrs Laboratory Tests Test 12/11/18 20:25 12/12/18 08:15 12/12/18 13:07 12/12/18 17:18 Bedside Glucose 93 117 98 93 Medications Medication Current Medications IV Flush (NS 3 ml) 3 ml PER PROTOCOL IV ; Start 12/06/18 at 14:30 Tramadol HCl (Ultram) 50 mg Q6H PRN PO MODERATE PAIN LEVEL 4-6 Last administered on 12/10/18at 13:52; Admin Dose 50 MG; Start 12/06/18 at 14:30 Spironolactone (Aldactone) 50 mg BID DIURETICS PO Last administered on 12/12/18at 17:17; Admin Dose 50 MG; Start 12/06/18 at 18:00 Insulin Aspart (Novolog Insulin Pen) 3 unit WITH MEALS SC Last administered on 12/12/18at 17:24; Admin Dose 3 UNIT; Start 12/06/18 at 18:00 Insulin Aspart (Novolog Insulin Pen) NOVOLOG *MILD* ALGORITHM WITH MEALS BEDTIME SC ; Start 12/06/18 at 18:00 Miscellaneous Information 1 ea NOTE XX ; Start 12/06/18 at 15:00 Glucose (Glutose) 15 gm Q15M PRN PO DECREASED GLUCOSE; Start 12/06/18 at 15:00 Glucose (Glutose) 22.5 gm Q15M PRN PO DECREASED GLUCOSE; Start 12/06/18 at 15:00 Dextrose (D50w Syringe) 25 ml Q15M PRN IV DECREASED GLUCOSE; Start 12/06/18 at 15:00 Dextrose (D50w Syringe) 50 ml Q15M PRN IV DECREASED GLUCOSE; Start 12/06/18 at 15:00 Glucagon (Glucagen) 1 mg Q15M PRN IM DECREASED GLUCOSE; Start 12/06/18 at 15:00 Glucose (Glutose) 15 gm Q15M PRN BUCCAL DECREASED GLUCOSE; Start 12/06/18 at 15:00 Ceftriaxone Sodium 50 ml @ 100 mls/hr Q24H IVPB Last administered on 12/12/18at 10:30; Admin Dose 100 MLS/HR; Start 12/09/18 at 10:00 Zolpidem Tartrate (Ambien) 5 mg HS MAY REPEAT X 1 PRN PO INSOMNIA Last administered on 12/10/18at 01:54; Admin Dose 5 MG; Start 12/10/18 at 01:30 Ondansetron HCl (Zofran Inj) 4 mg Q4H PRN IV NAUSEA AND/OR VOMITING Last administered on 12/10/18at 17:59; Admin Dose 4 MG; Start 12/10/18 at 15:30 Acetaminophen/ Hydrocodone Bitart ([place] ()) 1 tab Q6H PRN PO PAIN LEVEL 7-10 Last administered on 12/12/18at 16:13; Admin Dose 1 TAB; Start 12/10/18 at 15:30 Insulin Glargine (Lantus) 9 units DAILY@2000 SC Last administered on 12/11/18at 20:27; Admin Dose 9 UNITS; Start 12/11/18 at 20:00 Pantoprazole (Protonix Tab) 40 mg BID@06,18 PO Last administered on 12/12/18at 17:17; Admin Dose 40 MG; Start 12/11/18 at 18:00 Docusate Sodium (Colace Liquid Cup) 100 mg BID PRN PO CONSTIPATION; Start 06/21 at 17:30 Metoclopramide HCl (Reglan Liq) 5 mg AC MEALS PO ; Start 12/13/18 at 07:00 DEIDRE REYNOLDS MD Dec 12, 2018 20:03
[2018-12-12] MEDS: INSULIN GLARGINE [LANTus] (100 UNITS/ML) SYG SC SCH (20:22)
[2018-12-12] MEDS: ERYTHROMYCIN BASE (DR) 250 MG CAP PO SCH (22:01)
[2018-12-13 02:15] VITALS: BP 122/75; PULSE 90; RESP 18
[2018-12-13] MEDS: HYDROCODONE/APAP (10/325) TAB PO PRN ×3 (04:30→15:47)
[2018-12-13] MEDS: SPIRONOLACTONE 50 MG TAB PO SCH ×2 (06:23→17:19)
[2018-12-13] MEDS: PANTOPRAZOLE (EC) 40 MG TAB PO SCH ×2 (06:23→17:19)
[2018-12-13] MEDS: METOCLOPRAMIDE (1 MG/ML) 10 ML CUP PO SCH ×3 (07:56→17:20)
[2018-12-13] MEDS: INSULIN ASPART [NOVOLOG] 3 ML PEN SC SCH ×6 (08:00→17:22)
[2018-12-13 08:17] VITALS: BP 110/84; PULSE 95; RESP 18
[2018-12-13] MEDS: ERYTHROMYCIN BASE (DR) 250 MG CAP PO SCH ×2 (08:20→14:47)
[2018-12-13] MEDS: CEFTRIAXONE 2 GM/50 ML (PMX) 50 ML IVPB SCH (10:31)
--- NOTE | 2018-12-13 11:29 | PDOCDIS ---
Discharge Instructions CONDITION [id number] Patient Condition: [id number] Stable ACTIVITY: [id number] Activity Restrictions: Auhdx5m Slowly Increase Activity Avoid heavy lifting Do not Drive FOLLOW UP/APPOINTMENTS Follow-up Plan Appt Primary, Dr Han, Dr Barbosa 1wk JANIE CARNEY MD Dec 13, 2018 11:29
[2018-12-13] MEDS ORDERED: PANT40TA4 PO (11:32)
[2018-12-13] MEDS ORDERED: CIPR500T4 PO (11:32)
[2018-12-13] MEDS ORDERED: LACT20SO2 PO (11:32)
[2018-12-13] MEDS ORDERED: UDREG PO (11:32)
--- NOTE | 2018-12-13 11:49 | CONS ---
Assessment/Plan Assessment/Plan Assessment/Plan (Daily) Interval hx: HH stable in 12s. WBC in ascites fluid 891. Denies abdominal pain. Afebrile. Mild nausea continues. Is having BM. No evidence of GI bleeding. tolerating diet 1. 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 Anemia -mild and stable 3. Cirrhosis of liver -LFTs wnl 4. Portal hypertension 5. SBP 6. Emesis mostly related to diabetic gastroparesis patient has no evidence of gastric outlet obstruction from the tumor Plan continue with Ceftriaxone 2 gm QD IVPB Continue Reglan and PPI and aldactone Reglan to be given half an hour before each meal I discussed with the staff to give Reglan before each meal there were not doing it erythromycin as a prokinetic agent Cipro upon discharge Follow-up in the clinic in 2 weeks Consultation Date/Type/Reason Admit Date/Time Dec 06, 2018 at 13:44 Initial Consult Date Date/Time of Note DATE: 12/13/18 TIME: 11:49 24 HR Interval Summary Free Text/Dictation No emesis no abdominal pain now Constitutional: improved Exam/Review of Systems Exam Vitals Vital Signs Date Temp Pulse Resp B/P (MAP) Pulse Ox O2 O2 Flow FiO2 Time Delivery Rate 12/13/18 98.0 95 18 110/84 98 Room Air 08:17 (93) Intake and Output 12/12/18 12/12/18 12/13/18 1515:00 23:00 07:00 IntakeIntake Total 1200 ml 290 ml 480 ml BalanceBalance 1200 ml 290 ml 480 ml Constitutional: alert, oriented, well developed Psych: no complaints, nl mood/affect Head: normocephalic, atraumatic Eyes: nl conjunctiva, EOMI, nl lids, nl sclera, PERRL ENMT: nl external ears & nose, nl lips & teeth, nl nasal mucosa & septum Neck: supple, non-tender Respiratory: clear to auscultation, normal air movement Cardiovascular: regular rate and rhythm, nl pulses Gastrointestinal: soft, nl liver, spleen, non-tender Musculoskeletal: nl extremities to inspection, nl gait and stance Extremities: normal pulses 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, nl mental status, nl speech, nl strength Skin: nl turgor; No rash or lesions Lymph: nl lymph nodes Results Result Diagram: 12/10/18 0427 12/10/187 Results 24hrs Laboratory Tests Test 12/12/18 13:07 12/12/18 17:18 12/12/18 20:19 12/13/18 07:59 Bedside Glucose 98 93 105 83 Medications Medication Current Medications IV Flush (NS 3 ml) 3 ml PER PROTOCOL IV ; Start 12/06/18 at 14:30 Tramadol HCl (Ultram) 50 mg Q6H PRN PO MODERATE PAIN LEVEL 4-6 Last administered on 12/10/18at 13:52; Admin Dose 50 MG; Start 12/06/18 at 14:30 Spironolactone (Aldactone) 50 mg BID DIURETICS PO Last administered on 12/13/18at 06:23; Admin Dose 50 MG; Start 12/06/18 at 18:00 Insulin Aspart (Novolog Insulin Pen) 3 unit WITH MEALS SC Last administered on 12/13/18at 08:03; Admin Dose 3 UNIT; Start 12/06/18 at 18:00 Insulin Aspart (Novolog Insulin Pen) NOVOLOG *MILD* ALGORITHM WITH MEALS BEDTIME SC ; Start 12/06/18 at 18:00 Miscellaneous Information 1 ea NOTE XX ; Start 12/06/18 at 15:00 Glucose (Glutose) 15 gm Q15M PRN PO DECREASED GLUCOSE; Start 12/06/18 at 15:00 Glucose (Glutose) 22.5 gm Q15M PRN PO DECREASED GLUCOSE; Start 12/06/18 at 15:00 Dextrose (D50w Syringe) 25 ml Q15M PRN IV DECREASED GLUCOSE; Start 12/06/18 at 15:00 Dextrose (D50w Syringe) 50 ml Q15M PRN IV DECREASED GLUCOSE; Start 12/06/18 at 15:00 Glucagon (Glucagen) 1 mg Q15M PRN IM DECREASED GLUCOSE; Start 12/06/18 at 15:00 Glucose (Glutose) 15 gm Q15M PRN BUCCAL DECREASED GLUCOSE; Start 12/06/18 at 15:00 Ceftriaxone Sodium 50 ml @ 100 mls/hr Q24H IVPB Last administered on 12/13/18at 10:31; Admin Dose 100 MLS/HR; Start 12/09/18 at 10:00 Zolpidem Tartrate (Ambien) 5 mg HS MAY REPEAT X 1 PRN PO INSOMNIA Last administered on 12/10/18 01:54; Admin Dose 5 MG; Start 12/10/18 at 01:30 Ondansetron HCl (Zofran Inj) 4 mg Q4H PRN IV NAUSEA AND/OR VOMITING Last administered on 12/10/18 17:59; Admin Dose 4 MG; Start 12/10/18 at 15:30 Acetaminophen/ Hydrocodone Bitart ([place] (10/)) 1 tab Q6H PRN PO PAIN LEVEL 7-10 Last administered on 12/13/18 10:32; Admin Dose 1 TAB; Start 12/10/18 at 15:30 Insulin Glargine (Lantus) 9 units DAILY@2000 SC Last administered on 12/12/18 20:22; Admin Dose 9 UNITS; Start 12/11/18 at 20:00 Pantoprazole (Protonix Tab) 40 mg BID@06,18 PO Last administered on 12/13/18 06:23; Admin Dose 40 MG; Start 12/11/18 at 18:00 Docusate Sodium (Colace Liquid Cup) 100 mg BID PRN PO CONSTIPATION; Start 12/11/18 at 17:30 Metoclopramide HCl (Reglan Liq) 5 mg AC MEALS PO Last administered on 12/13/18 07:56; Admin Dose 5 MG; Start 12/13/18 at 07:00 Erythromycin (Erythromycin) 250 mg Q8 PO Last administered on 12/13/18 08:20; Admin Dose 250 MG; Start 12/12/18 at 22:00 DEIDRE REYNOLDS MD Dec 13, 2018 11:49
--- NOTE | 2018-12-13 12:35 | DS ---
Date/Time of Note Date/Time of Note DATE: 12/13/18 TIME: 12:32 Discharge Summary Admission/Discharge Info Admit Date/Time Dec 06, 2018 at 13:44 Discharge Date/Time Patient Condition: Fair Consults Dr Han Procedures EGD with biopsy Paracentesis -Fluid culture [phone] Hx of Present Illness For concern of GI bleed. Hospital Course Hospitalist coverage/hospital course Admitted for GI bleed underwent EGD which was noted to have esophagitis. Gastritis with gastroparesis having retained 80% of contents. Ulcerating lesion in the mid stomach progressing all the way to the GE junction. Patient was treated medically with PPI. Stable for for discharge. High risk of repeat events. Therefore I will discontinue aspirin and continue PPI and discharge. High risk of future events. Consider Hemo- spray etc. Additionally evaluated with concern of spontaneous bacterial peritonitis. He has finished IV cephalosporin. Home with 5 more days ciprofloxacin Metastatic recurrent gastric cancer. Needs to visit oncology next week. I tried to speak with patient's son today but his voicemail was full. A/P 1. GI bleed/ upper/ melena, sp EGD, stable cont PPI; prn Hemo-[place]/ Transfer vs Tertiary Care/ P-Gastrectomy. 2. Recurrent stomach ca, stable, restart chemo when stable 3. 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 Advanced care planning reevaluated 4. H/o Ca Stomach '16 ([place]), sp neoadjuvant chemo; Her2 negative. Dr Barbosa prn 5. Portal hypertension 6. Possible SBP, continuefinish antibiotics 7 Cirrhosis, stable 8. Ascites 9. Past alcoholism 10. Anemia 11. PUD 12. Diabetes 13. Metabolic syndrome 14. Constipation 15. Pulmonary/ hepatic nodules, subcentimeter, Unclear etiology. 16. Possible [place] 17. Chronic liver disease [place]: Portal hypertension/thrombocytopenia/ascites; adjust lactulose 18. Esophagitison EGD. Stomach biopsies taken. 19. Esophageal varices no active bleeding S: 12/09 events noted 12/10: No active bleeding. One episode of nausea/vomiting. 12/11: Intermittent nausea vomiting. No hematemesis. No BM for 2 days. I updated him and his regarding the challenges of his diagnosis and what they are doing to his symptoms. Recommend 5 small meals spaced out through the day. to attempt chemotherapy as outpatient, otherwise may need J-tube for feeds or hospice. 4/11: Feels better wants to go home. Will check with GI regarding antibiotics for SBP. \ 12/13: No events O: Vital signs stable Physical exam no Pallor Regular Clear Bs+/ dimin nt nd no RRG No edema Home Meds Active Scripts Ciprofloxacin Hcl* (Ciprofloxacin Hcl*) 500 Mg Tablet, 500 MG PO BID for 5 Days, #10 TAB Prov:JANIE CARNEY MD 12/13/18 Pantoprazole* (Pantoprazole*) 40 Mg Tablet.dr 40 MG PO BID@06,18 for 14 Days, #30 ok for OTC Prilosec instead. Prov:JANIE CARNEY MD 12/13/18 Metoclopramide* (Reglan*) 10 Mg/10 Ml Soln, 5 MG PO AC MEALS for 10 Days, #30 Prov:JANIE CARNEY MD 12/13/18 Lactulose* (Lactulose*) 20 Gm/30 Ml Solution, 20 GM PO DAILY for 14 Days, #14 1 Refill Prov:JANIE CARNEY MD 12/13/18 Lactobacillus Rhamnosus GG (Culturelle) 1 Each Capsule, 1 CAP PO BID for 7 Days, #14 CAP Prov:JANIE CARNEY MD 11/30/18 Thiamine* (Vitamin B-1*) 100 Mg Tablet, 100 MG PO DAILY for 30 Days, #30 TAB Prov:JANIE CARNEY MD 11/30/18 Spironolactone* (Aldactone*) 50 Mg Tablet, 50 MG PO BID DIURETICS for 14 Days, #14 TAB Prov:JANIE CARNEY MD 11/30/18 Nadolol (Corgard) 40 Mg Tablet, 20 MG PO DAILY for 14 Days, #14 TAB Prov:JANIE CARNEY MD 11/30/18 Reported Medications Metformin Hcl* (Metformin Hcl*) 1,000 Mg Tablet, 1000 MG PO WITH BREAKFAST DINNE, #60 TAB 12/06/18 Discontinued Reported Medications Insulin Glargine,Hum.rec.anlog (Basaglar Kwikpen U-100) 100 Unit/1 Ml Insuln.pen, 20 UNIT SC QHS, EA 12/06/18 Aspirin* (Aspirin* EC) 81 Mg Tablet., 81 MG PO DAILY, TAB 12/06/18 Discontinued Scripts Famotidine* (Famotidine*) 20 Mg Tablet, 20 MG PO HS for 10 Days, #10 TAB otc Prov:JANIE CARNEY MD 11/30/18 Follow-up Plan Appt Primary, Dr Han, Dr Barbosa 1wk Primary Care Provider Vimal Panchal MD Time spent on discharge: < 30 minutes Pending Labs Laboratory Tests Test 12/12/18 13:07 12/12/18 17:18 12/12/18 20:19 12/13/18 07:59 Bedside 98 93 105 83 Glucose mg/dL (70-220) mg/dL (70-220) mg/dL (70-220) mg/dL (70-220) JANIE CARNEY MD Dec 13, 2018 12:35
[2018-12-13 15:58] VITALS: BP 120/87; PULSE 99; RESP 18
[2018-12-13 19:32] VITALS: BP 124/81; PULSE 103; RESP 18
== END 2018-12-13 20:35 | disposition home or self-care (01) | DRG 374 ==
LOC: E/R 12:06 → 2NE 13:44 → EDBEDREQSVC 21:59
PROVIDERS: ADMIT Internal Medicine; ATTEND Internal Medicine
PROC: 0W9G3ZZ Drainage of Peritoneal Cavity, Percutaneous Approach (ICD-10-PCS; 2018-12-06)
PROC: 0DJ08ZZ Inspection of Upper Intestinal Tract, Via Natural or Artificial Opening Endoscopic (ICD-10-PCS; principal; 2018-12-07 07:30)
DX: C16.2 Malignant neoplasm of body of stomach (principal); K29.01 Acute gastritis with bleeding; K65.2 Spontaneous bacterial peritonitis; R18.8 Other ascites; K76.6 Portal hypertension; K92.0 Hematemesis; I85.10 Secondary esophageal varices without bleeding; K92.1 Melena; C79.9 Secondary malignant neoplasm of unspecified site; E11.43 Type 2 diabetes mellitus with diabetic autonomic (poly)neuropathy; K31.84 Gastroparesis; K20.9 Esophagitis, unspecified; K74.60 Unspecified cirrhosis of liver; E78.5 Hyperlipidemia, unspecified; D69.6 Thrombocytopenia, unspecified; K59.00 Constipation, unspecified
CPT/HCPCS: 36415; 71045; 80053; 81001; 82140; 82962; 83605; 83690; 83735; 84100; 84484; 85014; 85018; 85025; 85610; 85730; 86674; 87070; 87086; 87102; 87116; 89051; 93005; 96374; 96375; C9113; J0171; J0696; J1815; J2250; J2270; J2405; J2765; J3010; J7030

== ENCOUNTER 2018-12-28 12:33 | Emergency (ER) | payer MEDICARE, OTHER ==
[~2018-12-28] VITALS: Ht 165.1 cm; Wt 64.0 kg
[~2018-12-28 12:33] MED LIST changes: +CIPR500T4 PO; -FAMO20TA18 PO; +METF100010 PO; +PANT40TA4 PO; +UDREG PO
[2018-12-28 12:37] VITALS: Ht 165.1 cm; Wt 64.0 kg
[2018-12-28] MEDS ORDERED: SODIUM CHLORIDE 0.9% 1L BAG IV* STA (12:50)
[2018-12-28] MEDS ORDERED: ONDANSETRON 4 MG INJ IV STA (12:50)
[2018-12-28] MEDS ORDERED: morphine 4 MG/ML VIAL IV STA (12:50)
[2018-12-28] MEDS ORDERED: CEFTRIAXONE 1 GM/50 ML (PMX) 50 ML IVPB ONE (13:00)
[2018-12-28] MEDS ORDERED: LIDOCAINE 1% (MPF) 5 ML VIAL ONE (16:02)
[2018-12-28] MEDS ORDERED: AZIT250T PO (16:49)
--- NOTE | 2018-12-28 16:51 | ERD ---
ER Documentation Chief Complaint Chief Complaint AP, ascites, N/V X 2 wks, Hx intestinal CA HPI Patient is a 58-year-old male with gastric cancer, diabetes, and hypertension who presents with vomiting. He also had abdominal pain and swelling. He had fevers 3 days ago but none today. He has had no treatment as of yet. He denies cough or urinary symptoms. Upon review of old medical records this is the patient's sixth visit to the ER since 2016. The patient is just here to get a paracentesis. He does not currently have a primary doctor but says that his oncologist is Dr. Barbosa. ROS All systems reviewed and are negative except as per history of present illness. Medications Home Meds Active Scripts Azithromycin* (Zithromax*) 250 Mg Tablet, 250 MG PO .ZPACK DIRECTED, #6 TAB TAKE 500 MG (2 TABS) THE FIRST DAY THEN 250 MG (1 TAB) DAYS 2-5 Prov:GLEN SEVILLA MD 12/28/18 Pantoprazole* (Pantoprazole*) 40 Mg Tablet., 40 MG PO BID@06,18 for 14 Days, #30 ok for OTC Prilosec instead. Prov:JANIE CARNEY MD 12/13/18 Metoclopramide* (Reglan*) 10 Mg/10 Ml Soln, 5 MG PO AC MEALS for 10 Days, #30 Prov:JANIE CARNEY MD 12/13/18 Lactulose* (Lactulose*) 20 Gm/30 Ml Solution, 20 GM PO DAILY for 14 Days, #14 1 Refill Prov:JANIE CARNEY MD 12/13/18 Reported Medications Metformin Hcl* (Metformin Hcl*) 1,000 Mg Tablet, 1000 MG PO WITH BREAKFAST DINNE, #60 TAB 12/06/18 Discontinued Scripts Ciprofloxacin Hcl* (Ciprofloxacin Hcl*) 500 Mg Tablet, 500 MG PO BID for 5 Days, #10 TAB Prov:JANIE CARNEY MD 12/13/18 Lactobacillus Rhamnosus GG (Culturelle) 1 Each Capsule, 1 CAP PO BID for 7 Days, #14 CAP Prov:JANIE CARNEY MD 11/30/18 Thiamine* (Vitamin B-1*) 100 Mg Tablet, 100 MG PO DAILY for 30 Days, #30 TAB Prov:JANIE CARNEY MD 11/30/18 Spironolactone* (Aldactone*) 50 Mg Tablet, 50 MG PO BID DIURETICS for 14 Days, #14 TAB Prov:JANIE CARNEY MD 11/30/18 Nadolol (Corgard) 40 Mg Tablet, 20 MG PO DAILY for 14 Days, #14 TAB Prov:JANIE CARNEY MD 11/30/18 Allergies Allergies: Coded Allergies: No Known Allergy (Unverified , 12/28/18) PMhx/Soc History of Surgery: Yes (PORT A CATH PLACEMENT) Anesthesia Reaction: No Hx Neurological Disorder: No Hx Respiratory Disorders: No Hx Cardiac Disorders: Yes (HTN, HYPERLIPIDEMIA.RAPID HEART RATE) Hx Psychiatric Problems: No Hx Alcohol Use: No Hx Substance Use: No Hx Tobacco Use: No Smoking Status: Never smoker FmHx Family History: No diabetes Physical Exam Vitals Vital Signs Date Temp Pulse Resp B/P (MAP) Pulse Ox O2 O2 Flow FiO2 Time Delivery Rate 12/28/18 98.1 96 18 119/75 97 Room Air 16:34 (90) 12/28/18 Nasal 2 13:55 Cannula 12/28/18 99.1 138 18 135/105 96 12:37 (115) Physical Exam Const: No acute distress Head: Atraumatic Eyes: Normal Conjunctiva ENT: Normal External Ears, Nose and Mouth. Neck: Full range of motion. No meningismus. Resp: Clear to auscultation bilaterally Cardio: Tachycardic rate without murmur Abd: Distended abdomen with positive fluid wave Skin: No petechiae or rashes Back: No midline or flank tenderness Ext: No cyanosis, or edema Neur: Awake and alert Psych: Normal Mood and Affect Result Diagram: 12/28/18 1339 12/28/18 1339 Results 24 hrs Laboratory Tests Test 12/28/18 13:39 12/28/18 13:40 12/28/18 15:17 White Blood Count 14.8 10^3/ul Red Blood Count 5.09 10^6/ul Hemoglobin 12.9 g/dl Hematocrit 40.7 % Mean Corpuscular Volume 80.0 fl Mean Corpuscular Hemoglobin 25.3 pg Mean Corpuscular 31.7 g/dl Hemoglobin Concent Red Cell Distribution Width 13.5 % Platelet Count 147 10^3/UL Mean Platelet Volume 9.4 fl Immature Granulocytes % 0.400 % Neutrophils % 89.5 % Lymphocytes % 5.3 % Monocytes % 4.4 % Eosinophils % 0.2 % Basophils % 0.2 % Nucleated Red Blood Cells % 0.0 /100WBC Immature Granulocytes # 0.060 10^3/ul Neutrophils # 13.3 10^3/ul Lymphocytes # 0.8 10^3/ul Monocytes # 0.7 10^3/ul Eosinophils # 0.0 10^3/ul Basophils # 0.0 10^3/ul Nucleated Red Blood Cells # 0.0 10^3/ul Prothrombin Time 14.8 Sec Prothrombin Time Ratio 1.2 INR International 1.15 Normalized Ratio Activated Partial Thromboplast 31.5 Sec Time Sodium Level 142 mmol/L Potassium Level 3.7 mmol/L Chloride Level 104 mmol/L Carbon Dioxide Level 26 mmol/L Anion Gap 12 Blood Urea Nitrogen 14 mg/dl Creatinine 0.93 mg/dl Est Glomerular Filtrat > 60 mL/min Rate mL/min Glucose Level 130 mg/dl Calcium Level 9.0 mg/dl Total Bilirubin 0.3 mg/dl Direct Bilirubin 0.00 mg/dl Indirect Bilirubin 0.3 mg/dl Aspartate Amino Transf (AST/SGOT) 23 IU/L Alanine 18 IU/L Aminotransferase (ALT/SGPT) Alkaline Phosphatase 101 IU/L Troponin I < 0.012 ng/ml Total Protein 7.7 g/dl Albumin 3.1 g/dl Globulin 4.60 g/dl Albumin/Globulin Ratio 0.67 Lipase 37 U/L POC Venous Lactate 1.6 mmol/L Body Fluid Type PARACENTHESIS Body Fluid Volume 1050.0 ml Body Fluid Color YELLOW Body Fluid Appearance CLEAR Body Fluid WBC 236 /cmm Body Fluid RBC (Auto) 1000 /uL Body Fluid Polynuclear WBCs (%) 5.9 % Body Fluid Mononuclear Cells % 94.1 % Auto Current Medications Medications Dose Sig/Dago Start Time Status Last (Trade) Ordered Route PRN Stop Time Admin Dose Reason Admin Sodium 1,920 ml BOLUS OVER 2 12/28/18 DC 12/28/18 Chloride HOURS STAT 12:50 13:49 (NS) IV* 12/28/18 12:52 Morphine 4 mg ONCE STAT 12/28/18 DC 12/28/18 Sulfate IV 12:50 13:49 (morphine) 12/28/18 12:52 Ondansetron 4 mg ONCE STAT 12/28/18 DC 12/28/18 HCl (Zofran IV 12:50 13:48 Inj) 12/28/18 12:52 Ceftriaxone 50 ml @ ONCE ONCE 12/28/18 DC 12/28/18 Sodium 100 mls/hr IVPB 13:00 13:49 12/28/18 13:29 Lidocaine 5 ml STK-MED 12/28/18 DC 12/28/18 (Xylocaine ONCE .ROUTE 16:02 16:08 1% (Mpf)) 12/28/18 16:03 Procedures/MDM EKG read by me: Rate/Rhythm: Sinus tachycardia rate of 116 Intervals: Normal Impression: Tachycardia without ischemia Chest x-ray shows possible pneumonia per radiology. Patient is a 58-year-old male who presents with ascites. The patient had a full work-up which showed mild leukocytosis and possible pneumonia. Ultrasound- guided paracentesis was done by radiology and the patient feels much better. He is no longer in any distress or pain. His vital signs have normalized. He has been afebrile. The patient will be discharged with a prescription for Zithromax. He wants to go home. He can return for any worsening symptoms. Departure Diagnosis: Primary Impression: Pneumonia Pneumonia type: due to unspecified organism Laterality: unspecified laterality Lung location: unspecified part of lung Qualified Codes: J18.9 - Pneumonia, unspecified organism Additional Impressions: Ascites Ascites type: malignant Qualified Codes: R18.0 - Malignant ascites Abdominal pain Abdominal location: generalized Qualified Codes: R10.84 - Generalized ab dominal pain Condition: Fair Patient Instructions: Ascites, Pneumonia (Adult) Additional Instructions: Llame al doctor MAANA y jose manuel ruby JENNIFER PARA DENTRO DE 1-2 ZELAYA.Dgale a la secretaria que nosotros le instruimos hacer esta jennifer.Avise o llame si [place] condicin se empeora antes de la jennifer. Regresa aqui si peor o no mejor. GLEN SEVILLA MD Dec 28, 2018 16:51
[2018-12-28 17:03] VITALS: BP 136/80; PULSE 86; RESP 18
== END 2018-12-28 17:07 | disposition home or self-care (01) ==
LOC: E/R 12:33
DX: J18.9 Pneumonia, unspecified organism (principal); R18.0 Malignant ascites; R10.84 Generalized abdominal pain; C16.9 Malignant neoplasm of stomach, unspecified; E11.9 Type 2 diabetes mellitus without complications; I10 Essential (primary) hypertension; Z79.84 Long term (current) use of oral hypoglycemic drugs
CPT/HCPCS: 36415; 71045; 80053; 83605; 83690; 84484; 85025; 85610; 85730; 87040; 87070; 87102; 87116; 89051; 93005; 96361; 96365; 96375; 99285; J0696; J2270; J2405; J7030

== ENCOUNTER 2019-01-02 06:47 | Inpatient (IN) | payer MEDICARE, OTHER ==
[~2019-01-02] VITALS: Ht 165.1 cm; Wt 52.0 kg
[~2019-01-02 06:47] MED LIST changes: +AZIT250T PO; -CIPR500T4 PO; -LACT1CAP28 PO; -NADO40TA18 PO; -SPIR50TA PO; -THIA100T56 PO
--- NOTE | 2019-01-02 07:43 | ERD ---
ER Documentation Chief Complaint Chief Complaint abd pain x 3 days, denies N/V/D or fever HPI 58-year-old male history of diabetes, hypertension, portal hypertension, liver cirrhosis, recurrent ascites, gastric adenocarcinoma, anemia, esophageal varices and GI bleed abdominal pain presented to the emergency department at [facility] yesterday for evaluation of a 3-day history of abdominal pain with nausea and vomiting. Extensive work-up was performed and he is transferred for admission. Patient complains of moderate, worsening, abdominal distention and crampy and sharp, nonradiating periumbilical pain with nausea and multiple episodes of nonbloody nonbilious emesis but no diarrhea or constipation. Denies hematemesis, hematochezia or melena. No chest pain, palpitations or shortness of breath. Denies headache, neck or back pain. No dysuria, polyuria, hematuria or flank pain. No relieving or exacerbating factors. No fevers or chills. ROS All systems reviewed and are negative except as per history of present illness. Medications Home Meds Active Scripts Levofloxacin* (Levaquin*) 500 Mg Tablet, 500 MG PO DAILY for 7 Days, TAB Prov:JACKIE BANKS 01/05/19 Azithromycin* (Azithromycin*) 250 Mg Tablet, 250 MG PO DAILY, #4 TAB Prov:JACKIE BANKS 01/05/19 Metoclopramide* (Reglan*) 10 Mg/10 Ml Soln, 5 MG PO AC MEALS for 10 Days, #30 Prov:JACKIE BANKS 01/05/19 Lactulose* (Lactulose*) 20 Gm/30 Ml Solution, 20 GM PO DAILY for 14 Days, #14 1 Refill Prov:JACKIE BANKS 01/05/19 Azithromycin* (Zithromax*) 250 Mg Tablet, 250 MG PO .ZPACK DIRECTED, #6 TAB TAKE 500 MG (2 TABS) THE FIRST DAY THEN 250 MG (1 TAB) DAYS 2-5 Prov:GLEN SEVILLA MD 12/28/18 Pantoprazole* (Pantoprazole*) 40 Mg Tablet.dr 40 MG PO BID@06,18 for 14 Days, #30 ok for OTC Prilosec instead. Prov:JANIE CARNEY MD 12/13/18 Discontinued Reported Medications Metformin Hcl* (Metformin Hcl*) 1,000 Mg Tablet, 1000 MG PO WITH BREAKFAST DINNE, #60 TAB 12/06/18 Allergies Allergies: Coded Allergies: No Known Allergy (Unverified , 12/28/18) PMhx/Soc Reviewed in chart. As per HPI. History of Surgery: Yes (Stomach) Anesthesia Reaction: No Hx Neurological Disorder: No Hx Respiratory Disorders: No Hx Cardiac Disorders: Yes (HTN) Hx Psychiatric Problems: No Hx Miscellaneous Medical Probl: Yes (high cholesterol, Cirrosis, Neuropathy) Hx Alcohol Use: No Hx Substance Use: No Hx Tobacco Use: No Smoking Status: Never smoker FmHx Father: Thyroid cancer Physical Exam Vitals Temperature: 98.4. Pulse: 92. Respirations: 16. Blood pressure 131/87. O2 saturation 97% on room air. Physical Exam Const: Chronically ill-appearing in moderate distress. Head: Atraumatic Eyes: Normal Conjunctiva. Anicteric. ENT: Normal External Ears, Nose and Mouth. Pharynx is clear without erythema or exudate. Neck: Full range of motion. No JVD. Resp: Breath sounds are diminished at the bases but clear to auscultation bilaterally. No rales rhonchi or wheezes. Cardio: Regular rate and rhythm, no murmurs Abd: Soft, distended, mild, generalized tenderness but no rebound or guarding. Normal bowel sounds. Skin: No petechiae or rashes Back: No midline or flank tenderness Ext: No cyanosis, or edema Neur: Awake and alert. No focal deficit observed. Cranial nerves are grossly intact. Motor and sensory equal bilaterally. Psych: Normal Mood and Affect Results 24 hrs Laboratory Tests Test 01/02/19 07:41 01/02/19 07:54 01/02/19 07:59 01/02/19 08:38 Body Fluid Type ASCITES Body Fluid Volume 1050.0 ml Body Fluid Color YELLOW Body Fluid HAZY Appearance Body Fluid WBC 219 /cmm Body Fluid RBC 1000 /uL (Auto) Body Fluid 6.8 % Polynuclear WBCs (%) Body Fluid 93.2 % Mononuclear Cells % Auto White Blood Count 13.5 10^3/ul Red Blood Count 4.70 10^6/ul Hemoglobin 11.8 g/dl Hematocrit 37.4 % Mean Corpuscular 79.6 fl Volume Mean Corpuscular 25.1 pg Hemoglobin Mean Corpuscular 31.6 g/dl Hemoglobin Concent Red Cell 13.9 % Distribution Width Platelet Count 129 10^3/UL Mean Platelet 10.1 fl Volume Immature 0.500 % Granulocytes % Neutrophils % 84.8 % Lymphocytes % 7.0 % Monocytes % 7.1 % Eosinophils % 0.5 % Basophils % 0.1 % Nucleated Red 0.0 /100WBC Blood Cells % Immature 0.070 10^3/ul Granulocytes # Neutrophils # 11.4 10^3/ul Lymphocytes # 1.0 10^3/ul Monocytes # 1.0 10^3/ul Eosinophils # 0.1 10^3/ul Basophils # 0.0 10^3/ul Nucleated Red 0.0 10^3/ul Blood Cells # Prothrombin Time 15.2 Sec Prothrombin Time 1.2 Ratio INR International 1.19 Normalized Ratio Activated 32.[address] Time Urine Color YELLOW Urine Clarity SLIGHTLY CLOUDY Urine pH 5.0 Urine Specific 1.016 [place] Urine Ketones NEGATIVE mg/dL Urine Nitrite NEGATIVE mg/dL Urine Bilirubin NEGATIVE mg/dL Urine Urobilinogen NEGATIVE mg/dL Urine Leukocyte NEGATIVE Ronald/ul Esterase Urine Microscopic 3 /HPF RBC Urine Microscopic 2 /HPF WBC Urine Mucus FEW /HPF Urine Hemoglobin 1+ mg/dL Urine Glucose NEGATIVE mg/dL Urine Total NEGATIVE mg/dl Protein Sodium Level 140 mmol/L Potassium Level 3.7 mmol/L Chloride Level 105 mmol/L Carbon Dioxide 29 mmol/L Level Anion Gap 6 Blood Urea 13 mg/dl Nitrogen Creatinine 1.01 mg/dl Est Glomerular > 60 mL/min Filtrat Rate mL/min Glucose Level 122 mg/dl Calcium Level 8.5 mg/dl Total Bilirubin 0.4 mg/dl Direct Bilirubin 0.00 mg/dl Indirect Bilirubin 0.4 mg/dl Aspartate Amino 18 IU/L Transf (AST/SGOT) Alanine 23 IU/L Aminotransferase ( ALT/SGPT) Alkaline 87 IU/L Phosphatase Total Protein 6.7 g/dl Albumin 2.5 g/dl Globulin 4.20 g/dl Albumin/Globulin 0.59 Ratio Lipase 24 U/L Current Medications Medications Dose Sig/Dago Start Time Status Last (Trade) Ordered Route PRN Stop Time Admin Dose Reason Admin Lidocaine 5 ml STK-MED 01/02/19 DC 01/02/19 (Xylocaine ONCE .ROUTE 09:36 01/02/19 09:37 1% (Mpf)) 09:37 Procedures/MDM DOCUMENTS REVIEWED: ED nurse, prior medical records and transfer records from [facility]. Extensive work-up was performed including CBC which revealed mild leukocytosis with a hemoglobin of 15.4 but no left shift. Chemistry was unremarkable for electrolyte abnormalities or renal insufficiency but revealed borderline hyperglycemia of 164 mg/dL. Urinalysis showed 11-20 WBCs 11-20 RBCs negative nitrite and leukocyte esterase. Troponin was negative. EKG significant for sinus tachycardia rate of [address]-T wave changes or ectopy. CT scan of the abdomen and pelvis without contrast. Interpretation: Multiple focal areas of ground glass and tree-in-bud nodularity in the lung bases suspicious for bronchopneumonia or aspiration. Diffusely nodular liver suggesting cirrhosis. 3 probable gallbladder sludge. 4 large volume ascites with diffuse mesenteric edema possibly secondary to portal hypertension in the setting of cirrhosis however soft tissue nodularity appearance of the omentum raising the possibility of malignancy and peritoneal carcinomatosis. Patient was diagnosed with acute cystitis without hematuria, pneumonia, cirrhosis and ascites. Treated with morphine 4 mg/Zosyn 4 mg and antibiotics including Zosyn 3.375 g IV and vancomycin 1 g IV. Transfer to [facility] for admission to telemetry. IMAGING: Chest AP portable: Cardiac silhouette is normal. Costophrenic angles are clear without effusions or infiltrates. There is atelectasis in the lung bases. Right-sided port with tip in the superior vena cava. Sclerotic changes in the left humerus suspicious for metastases versus remote infarcts. MEDICAL DECISION MAKIN-year-old male history of diabetes, hypertension, p ortal hypertension, liver cirrhosis, recurrent ascites, gastric adenocarcinoma, anemia, esophageal varices and GI bleed abdominal pain presented to the emergency department at [facility] yesterday for evaluation of a 3-day history of abdominal pain with nausea and vomiting. CBC shows mild leukocytosis of 13.5 but no left shift. Mild anemia with H/H 11.8/37.4. Mild thromb ocytopenia with platelet count of 129,000. Chemistry unremarkable for electrolyte abnormalities, renal insufficiency or hyperglycemia. LFTs are negative for transaminitis, hyperbilirubinemia or elevated alk phosphatase. Lipase is not elevated. Urinalysis is unremarkable for infection or hematuria. Chest x-ray is negative for congestive heart failure, pneumonia, effusion or infiltrate. Findings of CT abdomen pelvis without contrast performed at [facility] are reviewed. There is no evidence of obstruction, appendicitis, diverticulitis, mesenteric ischemia, obstructive uropathy or abdominal aortic aneurysm. Ascites and a large volume paracentesis was performed by an interventional radiology at 4.3 L removed. Cell count reveals WBC of 219 was 6.8% polys not consistent with spontaneous bacterial peritonitis. Likely malignant but culture is pending. Admit to Med/Surg for further evaluation and management. CALLS/CONSULTS: Time: 08:30, Dr. Desire Zelaya. PATIENT CARE TRANSITIONED: Time: 09:02, Dr. Rivero Counseled [patient and family] regarding diagnosis, diagnostic results and plan for admission. Departure Diagnosis: Primary Impression: Acute generalized abdominal pain Additional Impressions: Gastric adenocarcinoma Ascites Ascites type: other type Qualified Codes: R18.8 - Other ascites Diabetes mellitus type 2 in nonobese Hypertension Hypertension type: essential hypertension Qualified Codes: I10 - Essential (primary) hypertension Condition: Serious GERTRUDIS RENEE MD January 02, 2019 07:43
[2019-01-02 09:00] VITALS: BP 117/86; PULSE 92; RESP 18
[2019-01-02 09:28] VITALS: BP 126/80; RESP 18
[2019-01-02] MEDS ORDERED: LIDOCAINE 1% (MPF) 5 ML VIAL ONE (09:36)
[2019-01-02] MEDS ORDERED: ACETAMINOPHEN 325 MG TAB PO PRN (10:00)
[2019-01-02] MEDS ORDERED: ONDANSETRON 4 MG INJ IV PRN ×2 (10:00→12:30)
[2019-01-02 10:50] VITALS: BP 119/79; PULSE 86; RESP 16
[2019-01-02 11:17] VITALS: Ht 165.1 cm; Wt 52.0 kg
[2019-01-02] MEDS: SOD CHLORIDE 0.9% 1,000 ML IV SCH (13:01)
[2019-01-02 13:55] VITALS: BP 109/76; PULSE 87; RESP 16
--- NOTE | 2019-01-02 16:48 | QN ---
Documentation Comment seen and examined INGRID BHAT MD January 02, 2019 16:48
--- NOTE | 2019-01-02 16:55 | QN ---
Documentation Comment seen and examiend INGRID BHAT MD January 02, 2019 16:55
[2019-01-02] MEDS ORDERED: METOCLOPRAMIDE 10 MG INJ IV PRN (17:00)
[2019-01-02] MEDS: CEFTRIAXONE 1 GM/50 ML (PMX) 50 ML IVPB SCH (17:36)
[2019-01-02] MEDS: AZITHROMYCIN 500 MG in SOD CHLORIDE 0.9% 250 ML IVPB SCH (18:58)
[2019-01-02 20:00] VITALS: BP 115/77; PULSE 87; RESP 16
--- NOTE | 2019-01-02 20:38 | HP ---
DATE OF ADMISSION: 01/02/2019 REASON FOR ADMISSION: Abdominal pain, nausea, vomiting for the last 2 to 3 days. HISTORY OF PRESENT ILLNESS: This is a 58-year-old male with a past medical history of cirrhosis and questionable abdominal/stomach cancer. According to the patient, he does not know where he goes for his treatment. He was diagnosed with some kind of cancer. The patient went to [facility] o n 01/01 secondary to severe periumbilical pain and nausea and vomiting for the last 2 to 3 days. Acc ording to the patient, the patient vomited around 8 times and was unable to keep anything down. Perico ed any hematemesis, any melena, any bright red per rectum. Patient also had some mild cough for 2 da ys. Denies any shortness of breath. Patient has history of cirrhosis and has been frequently gettin g paracentesis for the last few weeks. The patient has no clue about his care and his medical treatm ent. Patient went to [facility]. There, the patient had a chest x-ray that showed right-si ded infiltrate, no pneumothorax, no effusion. The patient also had a CT of the abdomen and pelvis th at show multifocal areas of ground opacity, but nodularity in lung bases suspicious for bronchopneumo finesse or aspiration and also had diffusely nodular liver suggesting cirrhosis, probable gallbladder slu dge. Patient had a large volume ascites, diffuse mesenteric edema secondary to portal hypertension i n the setting of cirrhosis; however, there is a soft tissue nodularity appearance of omentum, raising the possibility of malignancy peritoneal carcinomatosis. Patient was found to have a white count of 15.4, hemoglobin 13.2, platelet count of 175, BUN and creatinine within normal limit. Albumin 2.3, AST 16, ALT 12. UA also showed 50 glucose, 5+ ketones, 11-20 wbcs, 11-20 rbcs. EKG shows sinus tach ycardia. Patient was given vancomycin, Zosyn, morphine and Zofran and patient was transferred for th e diagnosis of ascites and pneumonia and cystitis. PAST MEDICAL HISTORY: 1. Diabetes. 2. Hypertension. 3. Hyperlipidemia. 4. Cirrhosis. 5. Stomach cancer. ALLERGIES: NONE. PAST SURGICAL HISTORY: None. MEDICATIONS: Taking at home: 1. Atorvastatin 10. 2. [place]. 3. Metoprolol 50. 4. Pantoprazole 40. SOCIAL HISTORY: Denies any history of smoking. The patient ____ alcohol use. FAMILY HISTORY: Father has history of throat cancer. REVIEW OF SYSTEMS: The patient complains of periumbilical pain, episodes of nausea and vomiting for the last 8 days, unable to keep anything down. Denied any hematemesis, any melena, any bright red pe r rectum. Has some mild cough. Denies any shortness of breath, denies any orthopnea, PND or any low er extremity edema. Had abdominal distention, status post paracentesis today. Has some mild dysuria . PHYSICAL EXAMINATION: VITAL SIGNS: Currently, blood pressure 109/76, afebrile, heart rate 87, respirations 16. GENERAL: The patient is awake, alert, cachectic looking. NECK: Supple, no JVD. HEART: Slight tachycardia. LUNGS: Clear to auscultation bilaterally. ABDOMEN: Scaphoid abdomen, now status post paracentesis. EXTREMITIES: No clubbing, cyanosis, or edema. NEUROLOGIC: Nonfocal. LABORATORY DATA: Shows white count of 13.5, hemoglobin 11.8, platelet count of 129. BUN and creatin ine within normal limit. Lipase of 24. UA is 1+ hemoglobin. Chest x-ray showed mild atelectasis of the lung bases, sclerotic densities in the ____, possibly remote infarcts. ASSESSMENT AND PLAN: This is a 58-year-old male presented with: 1. Abdominal pain, nausea, vomiting, questionable history of stomach cancer. Patient has no clue ab out his diagnosis. The patient is status post paracentesis. Patient had a CAT scan at [facility] that showed possibility of peritoneal carcinomatosis. 2. Cirrhosis with abdominal distention and status post paracentesis. 3. Mild cough with chest x-ray evidence of right-sided pneumonia/bronchopneumonia. 4. Diabetes. 5. Hypertension. 6. Hypercholesterolemia. 7. Neuropathy. PLAN: At this period of time, the patient is admitted to med/surg unit. The patient is status post paracentesis. We will continue the patient on IV fluids, pain control, antiemetics and Protonix. We will try to obtain records from the family. The patient will need a GI evaluation. The patient gay l also need IV antibiotics for pneumonia and UTI. Rest of the treatment will depend on the patient's hospitalization course. Dictated By: INGRID SINGH/AMBER Conf#: [id number] DID#: [id number] CC: DEIDRE REYNOLDS MD; NILSON ALEGRE MD;*EndCC*
[2019-01-03 01:58] VITALS: BP 114/68; PULSE 88; RESP 17
[2019-01-03] MEDS: SOD CHLORIDE 0.9% 1,000 ML IV SCH ×2 (02:03→15:55)
[2019-01-03] MEDS: PANTOPRAZOLE 40 MG INJ IV SCH (05:15)
[2019-01-03] MEDS: morphine 2 MG INJ IV PRN ×2 (05:16→15:52)
[2019-01-03 08:00] VITALS: BP 120/76; PULSE 89; RESP 18
[2019-01-03] MEDS: AZITHROMYCIN 500 MG in SOD CHLORIDE 0.9% 250 ML IVPB SCH (09:03)
[2019-01-03 14:00] VITALS: BP 129/80; PULSE 93; RESP 18
--- NOTE | 2019-01-03 15:13 | PN ---
Date/Time of Note Date/Time of Note DATE: 01/03/19 TIME: 15:10 Assessment/Plan VTE Prophylaxis Risk score (from Ns)>0 risk: 3 SCD applied (from Ns): No SCD contraindicated: other Pharmacological prophylaxis: LMWH Lines/Catheters IV [facility]from [facility]): Peripheral IV Urinary Cath still in place: No Assessment/Plan Hospital Course 1. Abdominal pain, nausea, vomiting, questionable history of stomach cancer. Patient has no clue about his diagnosis. The patient is status post paracentesis. Patient had a CAT scan at [facility] that showed possi bility of peritoneal carcinomatosis. hx of gastric carcinoma (adenocarcinoma 11/26/2018 mod. def adenocarcinoma) 2. Cirrhosis with abdominal distention and status post paracentesis. 3. Mild cough with chest x-ray evidence of right-sided pneumonia/bronchopneumonia. 4. Diabetes mellitus type II. 5. Hypertension. 6. Hypercholesterolemia. 7. Neuropathy. 8. Anemia Assessment/Plan med/surg unit. -c/w IV fluids, -c/w pain control, -c.w antiemetics and -GI prophylaxis Protonix. -obtain records from the family. - GI evaluation Dr Han -oncology dr Dong, called. - IV antibiotics for pneumonia and UTI. -DVT proph. Lovenox Result Diagram: 01/03/19 0546 01/03/19 0546 Results 24hrs Laboratory Tests Test 01/03/19 05:46 White Blood Count 9.1 # Red Blood Count 4.64 L Hemoglobin 11.6 L Hematocrit 37.3 L Mean Corpuscular Volume 80.4 L Mean Corpuscular Hemoglobin 25.0 L Mean Corpuscular Hemoglobin Concent 31.1 L Red Cell Distribution Width 14.0 Platelet Count 155 # Mean Platelet Volume 10.0 Immature Granulocytes % 0.300 Neutrophils % 82.4 H Lymphocytes % 10.5 L Monocytes % 6.3 Eosinophils % 0.4 Basophils % 0.1 Nucleated Red Blood Cells % 0.0 Immature Granulocytes # 0.030 Neutrophils # 7.5 Lymphocytes # 1.0 Monocytes # 0.6 Eosinophils # 0.0 Basophils # 0.0 Nucleated Red Blood Cells # 0.0 Sodium Level 144 Potassium Level 3.7 Chloride Level 110 Carbon Dioxide Level 24 Anion Gap 10 Blood Urea Nitrogen 17 Creatinine 1.07 Est Glomerular Filtrat Rate mL/min > 60 Glucose Level 83 Calcium Level 8.2 L Total Bilirubin 0.2 Direct Bilirubin 0.00 Indirect Bilirubin 0.2 Aspartate Amino Transf (AST/SGOT) 16 Alanine Aminotransferase (ALT/SGPT) 18 Alkaline Phosphatase 71 Total Protein 6.1 Albumin 2.3 L Globulin 3.80 H Albumin/Globulin Ratio 0.60 Subjective 24 Hr Interval Summary Constitutional: no complaints, improved Exam/Review of Systems Exam Vitals Vital Signs Date Temp Pulse Resp B/P (MAP) Pulse Ox O2 O2 Flow FiO2 Time Delivery Rate 01/03/19 97.9 89 18 120/76 96 08:00 (91) 01/03/19 Room Air 01:58 Intake and Output 01/02/19 01/02/19 01/03/19 1515:00 23:00 07:00 IntakeIntake Total 650 ml 860 ml BalanceBalance 650 ml 860 ml Constitutional: alert, oriented Eyes: nl conjunctiva Neck: supple Respiratory: clear to auscultation Cardiovascular: regular rate and rhythm Gastrointestinal: soft Results Results 24hrs Laboratory Tests Test 01/03/19 05:46 White Blood Count 9.1 # Red Blood Count 4.64 L Hemoglobin 11.6 L Hematocrit 37.3 L Mean Corpuscular Volume 80.4 L Mean Corpuscular Hemoglobin 25.0 L Mean Corpuscular Hemoglobin Concent 31.1 L Red Cell Distribution Width 14.0 Platelet Count 155 # Mean Platelet Volume 10.0 Immature Granulocytes % 0.300 Neutrophils % 82.4 H Lymphocytes % 10.5 L Monocytes % 6.3 Eosinophils % 0.4 Basophils % 0.1 Nucleated Red Blood Cells % 0.0 Immature Granulocytes # 0.030 Neutrophils # 7.5 Lymphocytes # 1.0 Monocytes # 0.6 Eosinophils # 0.0 Basophils # 0.0 Nucleated Red Blood Cells # 0.0 Sodium Level 144 Potassium Level 3.7 Chloride Level 110 Carbon Dioxide Level 24 Anion Gap 10 Blood Urea Nitrogen 17 Creatinine 1.07 Est Glomerular Filtrat Rate mL/min > 60 Glucose Level 83 Calcium Level 8.2 L Total Bilirubin 0.2 Direct Bilirubin 0.00 Indirect Bilirubin 0.2 Aspartate Amino Transf (AST/SGOT) 16 Alanine Aminotransferase (ALT/SGPT) 18 Alkaline Phosphatase 71 Total Protein 6.1 Albumin 2.3 L Globulin 3.80 H Albumin/Globulin Ratio 0.60 Medications Medication Current Medications Sodium Chloride 1,000 ml @ 70 mls/hr [id number] IV Last administered on 01/03/19at 02:03; Admin Dose 70 MLS/HR; Start 01/02/19 at 12:30 Ondansetron HCl (Zofran Inj) 4 mg Q6H PRN IV NAUSEA AND/OR VOMITING; Start 01/02/19 at 12:30 Pantoprazole (Protonix Iv) 40 mg DAILY@06 IV Last administered on 01/03/19at 05:15; Admin Dose 40 MG; Start 01/03/19 at 06:00 Morphine Sulfate (morphine) 2 mg Q4H PRN IV SEVERE PAIN LEVEL 7-10 Last administered on 01/03/19at 05:16; Admin Dose 2 MG; Start 01/02/19 at 12:30 Ceftriaxone Sodium 50 ml @ 100 mls/hr Q24H IVPB Last administered on 01/02/19at 17:36; Admin Dose 100 MLS/HR; Start 01/02/19 at 17:00 Azithromycin 500 mg/Sodium Chloride 250 ml @ 250 mls/hr QAM IVPB Last administered on 01/03/19at 09:03; Admin Dose 250 MLS/HR; Start 01/02/19 at 17:00 Metoclopramide HCl (Reglan) 10 mg Q6H PRN IV NAUSEA; Start 01/02/19 at 17:00 Metoclopramide HCl (Reglan) 10 mg Q6 IV ; Start 01/03/19 at 18:00 JACKIE BANKS January 03, 2019 15:13
--- NOTE | 2019-01-03 16:56 | CONS ---
DATE OF ADMISSION: 01/02/2019 DATE OF CONSULTATION: HISTORY OF PRESENT ILLNESS: A 58-year-old male with a history of stomach cancer, cirrhosis of liver, came to the ER complaining of abdominal pain. The patient also is known to have ascites and gets a paracentesis periodically done. His cytology was questionable positive for malignancy. He also has gastroparesis and the tumor is confined to the midportion of the stomach with much less distensibilit y. As per the old record, he had a CAT scan at [facility] and the question of peritoneal mets was ra ismary anne. At present, no nausea, no vomiting, no GI bleeding, no chest pain, no shortness of breath. PAST MEDICAL HISTORY: As described. ALLERGIES: NONE. MEDICATIONS: All reviewed. He is on the [place], pantoprazole, metoprolol. SOCIAL HISTORY: No smoking. FAMILY HISTORY: Father, thyroid cancer. REVIEW OF SYSTEMS: Negative. PHYSICAL EXAMINATION: GENERAL: Moderately built, nourished, not in distress. VITAL SIGNS: Stable. CARDIOVASCULAR: Unremarkable. LUNGS: Clear. EXTREMITIES: No edema. CENTRAL NERVOUS SYSTEM: Grossly within normal limits. IMPRESSION: 1. Stomach cancer status post chemo and radiation 3 years ago. He has lost follow up with his oncol ogist. During my last endoscopy positive biopsy for stomach cancer, I had strongly recommended to go back to the oncologist, but so far, patient has not gone. 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 3. Status post paracentesis, most probably related to malignancy given the peritoneal mets. 4. Diabetes mellitus. 5. History of gastroparesis. 6. Hypertension. 7. Hypercholesterolemia. PLAN: At this point, is to continue present care. We will start the patient on Reglan. Continue wi th the PPI. Antibiotics for his UTI and pneumonia and definitely needs oncology follow up for the tr eatment of metastatic stomach cancer. Dictated By: DEIDRE TERRY/AMBER Conf#: [id number] DID#: [id number] CC: NILSON ALEGRE MD;*EndCC*
[2019-01-03] MEDS: METOCLOPRAMIDE 10 MG INJ IV SCH (17:41)
[2019-01-03] MEDS: CEFTRIAXONE 1 GM/50 ML (PMX) 50 ML IVPB SCH (17:43)
[2019-01-03 19:45] VITALS: BP 121/76; PULSE 91; RESP 18
--- NOTE | 2019-01-03 23:26 | CONS ---
Assessment/Plan Assessment/Plan Hospital Course (Demo Recall) ASSESSMENT AND PLAN: This is a 58-year-old male presented with: Stomach cancer status post chemo and radiation 3 years ago. He has lost follow up with his oncologist. RE: DC HOME WITH OUTPT F-UP AT [facility] OR [facility] Abdominal pain, nausea, vomiting, The patient is status post paracentesis. Patient had a CAT scan at [facility] that showed possibility of peritoneal carcinomatosis. 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 Status post paracentesis, most probably related to malignancy given the peritoneal mets. Diabetes mellitus. History of gastroparesis. Hypertension. Hypercholesterolemia. Hypercholesterolemia. Neuropathy. Consultation Date/Type/Reason Admit Date/Time January 02, 2019 at 09:44 Date of Consultation: January 03, 2019 Type of Consult [facility] Reason for Consultation GASTRIC CANCER Requesting Provider: JACKIE BANKS Date/Time of Note DATE: 01/03/19 TIME: 23:26 Hx of Present Illness This is a 58-year-old male with a past medical history of cirrhosis and stomach cancer. ALL INFO IS RECEIVED FROM JACKIE MENDOZA NP According to the patient, he does not know where he goes for his treatment. He was diagnosed with some kind of cancer. The patient went to [facility] on 01/01 secondary to severe periumbilical pain and nausea and vomiting for the last 2 to 3 days. According to the patient, the patient vomited around 8 times and was unable to keep anything down. Denied any hematemesis, any melena, any bright red per rectum. Patient also had some mild cough for 2 days. Denies any shortness of breath. Patient has history of cirrhosis and has been frequently getting paracentesis for the last few weeks. The patient has no clue about his care and his medical treatment. Patient went to [facility]. There, the patient had a chest x-ray that showed right-sided infiltrate, no pneumothorax, no effusion. The patient also had a CT of the abdomen and pelvis that show multifocal areas of ground opacity, but nodularity in lung bases suspicious for bronchopneumonia or aspiration and also had diffusely nodular liver suggesting cirrhosis, probable gallbladder sludge. Patient had a large volume ascites, diffuse mesenteric edema secondary to portal hypertension in the setting of cirrhosis; however, there is a soft tissue nodularity appearance of omentum, raising the possibility of malignancy peritoneal carcinomatosis. Patient was found to have a white count of 15.4, hemoglobin 13.2, platelet count of 175, BUN and creatinine within normal limit. Albumin 2.3, AST 16, ALT 12. UA also showed 50 glucose, 5+ ketones, 11-20 wbcs, 11-20 rbcs. EKG shows sinus tachycardia. Patient was given vancomycin, Zosyn, morphine and Zofran and patient was transferred for the diagnosis of ascites and pneumonia and cystitis. PAST MEDICAL HISTORY: 1. Diabetes. 2. Hypertension. 3. Hyperlipidemia. 4. Cirrhosis. 5. Stomach cancer. ALLERGIES: NONE. PAST SURGICAL HISTORY: None. MEDICATIONS: Taking at home: 1. Atorvastatin 10. 2. [place]. 3. Metoprolol 50. 4. Pantoprazole 40. SOCIAL HISTORY: Denies any history of smoking. The patient ____ alcohol use. FAMILY HISTORY: Father has history of throat cancer. REVIEW OF SYSTEMS: The patient complains of periumbilical pain, episodes of nausea and vomiting for the last 8 days, unable to keep anything down. Denied any hematemesis, any melena, any bright red per rectum. Has some mild cough. Denies any shortness of breath, denies any orthopnea, PND or any lower extremity edema. Had abdominal distention, status post paracentesis today. Has some mild dysuria. Past Medical History Home Meds Active Scripts Azithromycin* (Zithromax*) 250 Mg Tablet, 250 MG PO .ZPACK DIRECTED, #6 TAB TAKE 500 MG (2 TABS) THE FIRST DAY THEN 250 MG (1 TAB) DAYS 2-5 Prov:GLEN SEVILLA MD 12/28/18 Pantoprazole* (Pantoprazole*) 40 Mg Tablet.dr 40 MG PO BID@06,18 for 14 Days, #30 ok for OTC Prilosec instead. Prov:JANIE CARNEY MD 12/13/18 Metoclopramide* (Reglan*) 10 Mg/10 Ml Soln, 5 MG PO AC MEALS for 10 Days, #30 Prov:JANIE CARNEY MD 12/13/18 Lactulose* (Lactulose*) 20 Gm/30 Ml Solution, 20 GM PO DAILY for 14 Days, #14 1 Refill Prov:JANIE CARNEY MD 12/13/18 Reported Medications Metformin Hcl* (Metformin Hcl*) 1,000 Mg Tablet, 1000 MG PO WITH BREAKFAST DINNE, #60 TAB 12/06/18 Discontinued Scripts Ciprofloxacin Hcl* (Ciprofloxacin Hcl*) 500 Mg Tablet, 500 MG PO BID for 5 Days, #10 TAB Prov:JANIE CARNEY MD 12/13/18 Lactobacillus Rhamnosus GG (Culturelle) 1 Each Capsule, 1 CAP PO BID for 7 Days, #14 CAP Prov:JANIE CARNEY MD 11/30/18 Thiamine* (Vitamin B-1*) 100 Mg Tablet, 100 MG PO DAILY for 30 Days, #30 TAB Prov:JANIE CARNEY MD 11/30/18 Spironolactone* (Aldactone*) 50 Mg Tablet, 50 MG PO BID DIURETICS for 14 Days, #14 TAB Prov:JANIE CARNEY MD 11/30/18 Nadolol (Corgard) 40 Mg Tablet, 20 MG PO DAILY for 14 Days, #14 TAB Prov:JANIE CARNEY MD 11/30/18 Medications Current Medications Sodium Chloride 1,000 ml @ 70 mls/hr [id number] IV Last administered on 01/03/19at 15:55; Admin Dose 70 MLS/HR; Start 01/02/19 at 12:30 Ondansetron HCl (Zofran Inj) 4 mg Q6H PRN IV NAUSEA AND/OR VOMITING; Start 01/02/19 at 12:30 Pantoprazole (Protonix Iv) 40 mg DAILY@06 IV Last administered on 01/03/19at 05:15; Admin Dose 40 MG; Start 01/03/19 at 06:00 Morphine Sulfate (morphine) 2 mg Q4H PRN IV SEVERE PAIN LEVEL 7-10 Last administered on 01/03/19at 15:52; Admin Dose 2 MG; Start 01/02/19 at 12:30 Ceftriaxone Sodium 50 ml @ 100 mls/hr Q24H IVPB Last administered on 01/03/19at 17:43; Admin Dose 100 MLS/HR; Start 01/02/19 at 17:00 Azithromycin 500 mg/Sodium Chloride 250 ml @ 250 mls/hr QAM IVPB Last administered on 01/03/19at 09:03; Admin Dose 250 MLS/HR; Start 01/02/19 at 17:00 Metoclopramide HCl (Reglan) 10 mg Q6H PRN IV NAUSEA; Start 01/02/19 at 17:00 Metoclopramide HCl (Reglan) 10 mg Q6 IV Last administered on 01/03/19at 17:41; Admin Dose 10 MG; Start 01/03/19 at 18:00 Enoxaparin Sodium (Lovenox) 40 mg DAILY SC ; Start 01/04/19 at 09:00 Allergies: Coded Allergies: No Known Allergy (Unverified , 12/28/18) Social History Smoking Status: Never smoker Exam/Review of Systems Exam Vitals Vital Signs Date Temp Pulse Resp B/P (MAP) Pulse Ox O2 O2 Flow FiO2 Time Delivery Rate 01/03/19 98.5 91 18 121/76 99 19:45 (91) 01/03/19 Room Air 01:58 Intake and Output 01/02/19 01/02/19 01/03/19 1515:00 23:00 07:00 IntakeIntake Total 650 ml 860 ml BalanceBalance 650 ml 860 ml Exam PHYSICAL EXAMINATION: GENERAL: The patient is awake, alert, cachectic looking. NECK: Supple, no JVD. HEART: Slight tachycardia. LUNGS: Clear to auscultation bilaterally. ABDOMEN: Scaphoid abdomen, now status post paracentesis. EXTREMITIES: No clubbing, cyanosis, or edema. NEUROLOGIC: Nonfocal. Results Result Diagram: 01/03/19 0546 01/03/19 0546 Results 24hrs Laboratory Tests Test 01/03/19 05:46 White Blood Count 9.1 # Red Blood Count 4.64 L Hemoglobin 11.6 L Hematocrit 37.3 L Mean Corpuscular Volume 80.4 L Mean Corpuscular Hemoglobin 25.0 L Mean Corpuscular Hemoglobin Concent 31.1 L Red Cell Distribution Width 14.0 Platelet Count 155 # Mean Platelet Volume 10.0 Immature Granulocytes % 0.300 Neutrophils % 82.4 H Lymphocytes % 10.5 L Monocytes % 6.3 Eosinophils % 0.4 Basophils % 0.1 Nucleated Red Blood Cells % 0.0 Immature Granulocytes # 0.030 Neutrophils # 7.5 Lymphocytes # 1.0 Monocytes # 0.6 Eosinophils # 0.0 Basophils # 0.0 Nucleated Red Blood Cells # 0.0 Sodium Level 144 Potassium Level 3.7 Chloride Level 110 Carbon Dioxide Level 24 Anion Gap 10 Blood Urea Nitrogen 17 Creatinine 1.07 Est Glomerular Filtrat Rate mL/min > 60 Glucose Level 83 Calcium Level 8.2 L Total Bilirubin 0.2 Direct Bilirubin 0.00 Indirect Bilirubin 0.2 Aspartate Amino Transf (AST/SGOT) 16 Alanine Aminotransferase (ALT/SGPT) 18 Alkaline Phosphatase 71 Total Protein 6.1 Albumin 2.3 L Globulin 3.80 H Albumin/Globulin Ratio 0.60 Medications Medication Current Medications Sodium Chloride 1,000 ml @ 70 mls/hr [id number] IV Last administered on 01/03/19 15:55; Admin Dose 70 MLS/HR; Start 01/02/19 at 12:30 Ondansetron HCl (Zofran Inj) 4 mg Q6H PRN IV NAUSEA AND/OR VOMITING; Start 01/02/19 at 12:30 Pantoprazole (Protonix Iv) 40 mg DAILY@06 IV Last administered on 01/03/19 05:15; Admin Dose 40 MG; Start 01/03/19 at 06:00 Morphine Sulfate (morphine) 2 mg Q4H PRN IV SEVERE PAIN LEVEL 7-10 Last administered on 01/03/19 15:52; Admin Dose 2 MG; Start 01/02/19 at 12:30 Ceftriaxone Sodium 50 ml @ 100 mls/hr Q24H IVPB Last administered on 01/03/19 17:43; Admin Dose 100 MLS/HR; Start 01/02/19 at 17:00 Azithromycin 500 mg/Sodium Chloride 250 ml @ 250 mls/hr QAM IVPB Last administered on 01/03/19 09:03; Admin Dose 250 MLS/HR; Start 01/02/19 at 17:00 Metoclopramide HCl (Reglan) 10 mg Q6H PRN IV NAUSEA; Start 01/02/19 at 17:00 Metoclopramide HCl (Reglan) 10 mg Q6 IV Last administered on 01/03/19 17:41; Admin Dose 10 MG; Start 01/03/19 at 18:00 Enoxaparin Sodium (Lovenox) 40 mg DAILY SC ; Start 01/04/19 at 09:00 AMADA BENDER MD January 03, 2019 23:26
[2019-01-04] MEDS: METOCLOPRAMIDE 10 MG INJ IV SCH ×4 (00:22→17:08)
[2019-01-04 02:00] VITALS: BP 107/64; PULSE 89; RESP 18
[2019-01-04] MEDS: PANTOPRAZOLE 40 MG INJ IV SCH (06:18)
[2019-01-04] MEDS: SOD CHLORIDE 0.9% 1,000 ML IV SCH (06:18)
[2019-01-04 07:58] VITALS: BP 127/77; PULSE 98; RESP 17
[2019-01-04] MEDS: morphine 2 MG INJ IV PRN ×2 (08:08→20:55)
[2019-01-04] MEDS: AZITHROMYCIN 500 MG in SOD CHLORIDE 0.9% 250 ML IVPB SCH (08:09)
[2019-01-04] MEDS: ENOXAPARIN 40 MG/0.4 ML SYG SC SCH (08:14)
--- NOTE | 2019-01-04 13:40 | PN ---
Date/Time of Note Date/Time of Note DATE: 01/04/19 TIME: 13:39 Assessment/Plan VTE Prophylaxis Risk score (from Ns)>0 risk: 3 SCD applied (from Ns): No SCD contraindicated: other Pharmacological prophylaxis: LMWH Lines/Catheters IV Catheter Type (from [facility]): Peripheral IV Urinary Cath still in place: No Assessment/Plan Hospital Course 1. Abdominal pain, nausea, vomiting, questionable history of stomach cancer. Patient has no clue about his diagnosis. The patient is status post paracentesis. Patient had a CAT scan at [facility] that showed possi bility of peritoneal carcinomatosis. hx of gastric carcinoma (adenocarcinoma 11/26/2018 mod. def adenocarcinoma) 2. Cirrhosis with abdominal distention and status post paracentesis. 3. Mild cough with chest x-ray evidence of right-sided pneumonia/bronchopneumonia. 4. Diabetes mellitus type II. 5. Hypertension. 6. Hypercholesterolemia. 7. Neuropathy. 8. Anemia Assessment/Plan -start full liquid diet -decreased IV fluids -pain control -GI proph. prot. -dc planing -[facility] a Medicare[facility] Result Diagram: 01/04/19 0713 01/04/19 0713 Results 24hrs Laboratory Tests Test 01/04/19 07:13 White Blood Count 8.2 Red Blood Count 4.66 L Hemoglobin 11.7 L Hematocrit 38.1 L Mean Corpuscular Volume 81.8 L Mean Corpuscular Hemoglobin 25.1 L Mean Corpuscular Hemoglobin Concent 30.7 L Red Cell Distribution Width 14.0 Platelet Count 169 Mean Platelet Volume 9.6 Immature Granulocytes % 0.500 H Neutrophils % 80.8 H Lymphocytes % 11.3 L Monocytes % 6.7 Eosinophils % 0.5 Basophils % 0.2 Nucleated Red Blood Cells % 0.0 Immature Granulocytes # 0.040 H Neutrophils # 6.7 Lymphocytes # 0.9 Monocytes # 0.6 Eosinophils # 0.0 Basophils # 0.0 Nucleated Red Blood Cells # 0.0 Sodium Level 146 H Potassium Level 3.7 Chloride Level 111 H Carbon Dioxide Level 23 Anion Gap 12 Blood Urea Nitrogen 20 Creatinine 1.04 Est Glomerular Filtrat Rate mL/min > 60 Glucose Level 69 #L Calcium Level 8.1 L Subjective 24 Hr Interval Summary Constitutional: no complaints Gastrointestinal: no complaints Exam/Review of Systems Exam Vitals Vital Signs Date Temp Pulse Resp B/P (MAP) Pulse Ox O2 O2 Flow FiO2 Time Delivery Rate 01/04/19 98.5 98 17 127/77 98 07:58 (94) 01/03/19 Room Air 01:58 Intake and Output 01/03/19 01/03/19 01/04/19 1515:00 23:00 07:00 IntakeIntake Total 1150 ml 230 ml 860 ml OutputOutput Total 200 ml 500 ml BalanceBalance 1150 ml 30 ml 360 ml Constitutional: alert Respiratory: clear to auscultation Gastrointestinal: soft Results Results 24hrs Laboratory Tests Test 01/04/19 07:13 White Blood Count 8.2 Red Blood Count 4.66 L Hemoglobin 11.7 L Hematocrit 38.1 L Mean Corpuscular Volume 81.8 L Mean Corpuscular Hemoglobin 25.1 L Mean Corpuscular Hemoglobin Concent 30.7 L Red Cell Distribution Width 14.0 Platelet Count 169 Mean Platelet Volume 9.6 Immature Granulocytes % 0.500 H Neutrophils % 80.8 H Lymphocytes % 11.3 L Monocytes % 6.7 Eosinophils % 0.5 Basophils % 0.2 Nucleated Red Blood Cells % 0.0 Immature Granulocytes # 0.040 H Neutrophils # 6.7 Lymphocytes # 0.9 Monocytes # 0.6 Eosinophils # 0.0 Basophils # 0.0 Nucleated Red Blood Cells # 0.0 Sodium Level 146 H Potassium Level 3.7 Chloride Level 111 H Carbon Dioxide Level 23 Anion Gap 12 Blood Urea Nitrogen 20 Creatinine 1.04 Est Glomerular Filtrat Rate mL/min > 60 Glucose Level 69 #L Calcium Level 8.1 L Medications Medication Current Medications Sodium Chloride 1,000 ml @ 70 mls/hr [id number] IV Last administered on 01/04/19at 06:18; Admin Dose 70 MLS/HR; Start 01/02/19 at 12:30 Ondansetron HCl (Zofran Inj) 4 mg Q6H PRN IV NAUSEA AND/OR VOMITING; Start 01/02/19 at 12:30 Pantoprazole (Protonix Iv) 40 mg DAILY@06 IV Last administered on 01/04/19at 06:18; Admin Dose 40 MG; Start 01/03/19 at 06:00 Morphine Sulfate (morphine) 2 mg Q4H PRN IV SEVERE PAIN LEVEL 7-10 Last administered on 01/04/19 08:08; Admin Dose 2 MG; Start 01/02/19 at 12:30 Ceftriaxone Sodium 50 ml @ 100 mls/hr Q24H IVPB Last administered on 01/03/19 17:43; Admin Dose 100 MLS/HR; Start 01/02/19 at 17:00 Azithromycin 500 mg/Sodium Chloride 250 ml @ 250 mls/hr QAM IVPB Last administered on 01/04/19 08:09; Admin Dose 250 MLS/HR; Start 01/02/19 at 17:00 Metoclopramide HCl (Reglan) 10 mg Q6H PRN IV NAUSEA; Start 01/02/19 at 17:00 Metoclopramide HCl (Reglan) 10 mg Q6 IV Last administered on 01/04/19 11:54; Admin Dose 10 MG; Start 01/03/19 at 18:00 Enoxaparin Sodium (Lovenox) 40 mg DAILY SC Last administered on 01/04/19 08:14; Admin Dose 40 MG; Start 01/04/19 at 09:00 JACKIE BANKS January 04, 2019 13:40
--- NOTE | 2019-01-04 13:44 | CONS ---
Assessment/Plan Assessment/Plan Hospital Course (Demo Recall) ASSESSMENT AND PLAN: This is a 58-year-old male presented with: Stomach cancer status post chemo and radiation 3 years ago. He has lost follow up with his oncologist. RE: DC HOME WITH OUTPT F-UP AT [facility] OR [facility] [place] Abdominal pain, nausea, vomiting, The patient is status post paracentesis. Patient had a CAT scan at [facility] that showed possibility of peritoneal carcinomatosis. 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 Status post paracentesis, most probably related to malignancy given the peritoneal mets. Diabetes mellitus. History of gastroparesis. Hypertension. Hypercholesterolemia. Hypercholesterolemia. Neuropathy. Consultation Date/Type/Reason Admit Date/Time January 02, 2019 at 09:44 Initial Consult Date 01/03/19 Type of Consult [facility] Requesting Provider: JACKIE BANKS Date/Time of Note DATE: 01/04/19 TIME: 13:43 24 HR Interval Summary Free Text/Dictation ALL NOTED PT IS FELLING BETTER Exam/Review of Systems Exam Vitals Vital Signs Date Temp Pulse Resp B/P (MAP) Pulse Ox O2 O2 Flow FiO2 Time Delivery Rate 01/04/19 98.5 98 17 127/77 98 07:58 (94) 01/03/19 Room Air 01:58 Intake and Output 01/03/19 01/03/19 01/04/19 1414:59 22:59 06:59 IntakeIntake Total 450 ml 930 ml 860 ml OutputOutput Total 200 ml 500 ml BalanceBalance 450 ml 730 ml 360 ml Exam GENERAL: The patient is awake, alert, cachectic looking. NECK: Supple, no JVD. HEART: Slight tachycardia. LUNGS: Clear to auscultation bilaterally. ABDOMEN: Scaphoid abdomen, now status post paracentesis. EXTREMITIES: No clubbing, cyanosis, or edema. NEUROLOGIC: Nonfocal. Results Result Diagram: 01/04/19 0713 01/04/19 0713 Results 24hrs Laboratory Tests Test 01/04/19 07:13 White Blood Count 8.2 Red Blood Count 4.66 L Hemoglobin 11.7 L Hematocrit 38.1 L Mean Corpuscular Volume 81.8 L Mean Corpuscular Hemoglobin 25.1 L Mean Corpuscular Hemoglobin Concent 30.7 L Red Cell Distribution Width 14.0 Platelet Count 169 Mean Platelet Volume 9.6 Immature Granulocytes % 0.500 H Neutrophils % 80.8 H Lymphocytes % 11.3 L Monocytes % 6.7 Eosinophils % 0.5 Basophils % 0.2 Nucleated Red Blood Cells % 0.0 Immature Granulocytes # 0.040 H Neutrophils # 6.7 Lymphocytes # 0.9 Monocytes # 0.6 Eosinophils # 0.0 Basophils # 0.0 Nucleated Red Blood Cells # 0.0 Sodium Level 146 H Potassium Level 3.7 Chloride Level 111 H Carbon Dioxide Level 23 Anion Gap 12 Blood Urea Nitrogen 20 Creatinine 1.04 Est Glomerular Filtrat Rate mL/min > 60 Glucose Level 69 #L Calcium Level 8.1 L Medications Medication Current Medications Sodium Chloride 1,000 ml @ 70 mls/hr [id number] IV Last administered on 01/04/19 06:18; Admin Dose 70 MLS/HR; Start 01/02/19 at 12:30 Ondansetron HCl (Zofran Inj) 4 mg Q6H PRN IV NAUSEA AND/OR VOMITING; Start 01/02/19 at 12:30 Pantoprazole (Protonix Iv) 40 mg DAILY@06 IV Last administered on 01/04/19 06:18; Admin Dose 40 MG; Start 01/03/19 at 06:00 Morphine Sulfate (morphine) 2 mg Q4H PRN IV SEVERE PAIN LEVEL 7-10 Last administered on 01/04/19 08:08; Admin Dose 2 MG; Start 01/02/19 at 12:30 Ceftriaxone Sodium 50 ml @ 100 mls/hr Q24H IVPB Last administered on 01/03/19 17:43; Admin Dose 100 MLS/HR; Start 01/02/19 at 17:00 Azithromycin 500 mg/Sodium Chloride 250 ml @ 250 mls/hr QAM IVPB Last administered on 01/04/19 08:09; Admin Dose 250 MLS/HR; Start 01/02/19 at 17:00 Metoclopramide HCl (Reglan) 10 mg Q6H PRN IV NAUSEA; Start 01/02/19 at 17:00 Metoclopramide HCl (Reglan) 10 mg Q6 IV Last administered on 01/04/19at 11:54; Admin Dose 10 MG; Start 01/03/19 at 18:00 Enoxaparin Sodium (Lovenox) 40 mg DAILY SC Last administered on 01/04/19at 08:14; Admin Dose 40 MG; Start 01/04/19 at 09:00 AMADA BENDER MD January 04, 2019 13:44
[2019-01-04 14:10] VITALS: BP 133/78; PULSE 90; RESP 17
--- NOTE | 2019-01-04 15:34 | CONS ---
Assessment/Plan Assessment/Plan Assessment/Plan (Daily) IMPRESSION: 1. Stomach cancer status post chemo and radiation 3 years ago. He has lost follow up with his oncologist. During my last endoscopy positive biopsy for stomach cancer, I had strongly recommended to go back to the oncologist, but so far, patient has not gone. 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 3. Status post paracentesis, most probably related to malignancy given the peritoneal mets. 4. Diabetes mellitus. 5. History of gastroparesis. 6. Hypertension. 7. Hypercholesterolemia. Plan Advance diet Continue Reglan Consultation Date/Type/Reason Admit Date/Time January 02, 2019 at 09:44 Initial Consult Date 01/03/19 Requesting Provider: JACKIE BANKS Date/Time of Note DATE: 01/04/19 TIME: 15:33 24 HR Interval Summary Constitutional: no complaints, improved Exam/Review of Systems Exam Vitals Vital Signs Date Temp Pulse Resp B/P (MAP) Pulse Ox O2 O2 Flow FiO2 Time Delivery Rate 01/04/19 98.6 90 17 133/78 98 14:10 (96) 01/03/19 Room Air 01:58 Intake and Output 01/03/19 01/03/19 01/04/19 1515:00 23:00 07:00 IntakeIntake Total 1150 ml 230 ml 860 ml OutputOutput Total 200 ml 500 ml BalanceBalance 1150 ml 30 ml 360 ml Constitutional: alert, oriented, well developed Psych: no complaints, nl mood/affect Head: normocephalic, atraumatic Eyes: nl conjunctiva, EOMI, nl lids, nl sclera, PERRL ENMT: nl external ears & nose, nl lips & teeth, nl nasal mucosa & septum Neck: supple, non-tender Respiratory: clear to auscultation, normal air movement Cardiovascular: regular rate and rhythm, nl pulses Gastrointestinal: soft, nl liver, spleen, non-tender Musculoskeletal: nl extremities to inspection, nl gait and stance Extremities: normal pulses Neurological: FILTER TENDER II-XII intact, nl mental status, nl speech, nl strength Skin: nl turgor; No rash or lesions Lymph: nl lymph nodes Results Result Diagram: 01/04/19 0713 01/04/19 0713 Results 24hrs Laboratory Tests Test 01/04/19 07:13 White Blood Count 8.2 Red Blood Count 4.66 L Hemoglobin 11.7 L Hematocrit 38.1 L Mean Corpuscular Volume 81.8 L Mean Corpuscular Hemoglobin 25.1 L Mean Corpuscular Hemoglobin Concent 30.7 L Red Cell Distribution Width 14.0 Platelet Count 169 Mean Platelet Volume 9.6 Immature Granulocytes % 0.500 H Neutrophils % 80.8 H Lymphocytes % 11.3 L Monocytes % 6.7 Eosinophils % 0.5 Basophils % 0.2 Nucleated Red Blood Cells % 0.0 Immature Granulocytes # 0.040 H Neutrophils # 6.7 Lymphocytes # 0.9 Monocytes # 0.6 Eosinophils # 0.0 Basophils # 0.0 Nucleated Red Blood Cells # 0.0 Sodium Level 146 H Potassium Level 3.7 Chloride Level 111 H Carbon Dioxide Level 23 Anion Gap 12 Blood Urea Nitrogen 20 Creatinine 1.04 Est Glomerular Filtrat Rate mL/min > 60 Glucose Level 69 #L Calcium Level 8.1 L Medications Medication Current Medications Sodium Chloride 1,000 ml @ 30 mls/hr Q24H IV Last administered on 01/04/19at 06:18; Admin Dose 70 MLS/HR; Start 01/02/19 at 12:30 Ondansetron HCl (Zofran Inj) 4 mg Q6H PRN IV NAUSEA AND/OR VOMITING; Start 01/02/19 at 12:30 Pantoprazole (Protonix Iv) 40 mg DAILY@06 IV Last administered on 01/04/19at 06:18; Admin Dose 40 MG; Start 01/03/19 at 06:00 Morphine Sulfate (morphine) 2 mg Q4H PRN IV SEVERE PAIN LEVEL 7-10 Last administered on 01/04/19at 08:08; Admin Dose 2 MG; Start 01/02/19 at 12:30 Ceftriaxone Sodium 50 ml @ 100 mls/hr Q24H IVPB Last administered on 01/03/19at 17:43; Admin Dose 100 MLS/HR; Start 01/02/19 at 17:00 Azithromycin 500 mg/Sodium Chloride 250 ml @ 250 mls/hr QAM IVPB Last administered on 01/04/19at 08:09; Admin Dose 250 MLS/HR; Start 01/02/19 at 17:00 Metoclopramide HCl (Reglan) 10 mg Q6H PRN IV NAUSEA; Start 01/02/19 at 17:00 Metoclopramide HCl (Reglan) 10 mg Q6 IV Last administered on 01/04/19at 11:54; Admin Dose 10 MG; Start 01/03/19 at 18:00 Enoxaparin Sodium (Lovenox) 40 mg DAILY SC Last administered on 01/04/19at 08:14; Admin Dose 40 MG; Start 01/04/19 at 09:00 DEIDRE REYNOLDS MD January 04, 2019 15:34
[2019-01-04] MEDS: CEFTRIAXONE 1 GM/50 ML (PMX) 50 ML IVPB SCH (17:09)
[2019-01-04 20:00] VITALS: BP 130/83; PULSE 88; RESP 17
[2019-01-05] MEDS: METOCLOPRAMIDE 10 MG INJ IV SCH ×4 (00:14→17:12)
[2019-01-05] MEDS: SOD CHLORIDE 0.9% 1,000 ML IV SCH ×2 (00:15→07:24)
[2019-01-05 02:00] VITALS: BP 119/71; PULSE 91; RESP 18
[2019-01-05] MEDS: morphine 2 MG INJ IV PRN ×2 (06:02→12:03)
[2019-01-05] MEDS: PANTOPRAZOLE 40 MG INJ IV SCH (06:02)
[2019-01-05 07:50] VITALS: BP 128/84; PULSE 90; RESP 17
[2019-01-05] MEDS: AZITHROMYCIN 500 MG in SOD CHLORIDE 0.9% 250 ML IVPB SCH (08:43)
[2019-01-05] MEDS: ENOXAPARIN 40 MG/0.4 ML SYG SC SCH (08:43)
--- NOTE | 2019-01-05 12:11 | PDOCDIS ---
Discharge Instructions DIAGNOSIS Discharge Diagnosis gastric carcinoma CONDITION [id number] Patient Condition: [id number] Stable ACTIVITY: [id number] Activity Restrictions: [id number] Slowly Increase Activity Rest between Activity Avoid heavy lifting Do not operate Power Tool Avoid Heavy Housework FOLLOW UP/APPOINTMENTS Follow-up Plan PCP 1 wek -oncology per pt choice for oncological treatment JACKIE BANKS January 05, 2019 12:11
--- NOTE | 2019-01-05 12:14 | DS ---
Date/Time of Note Date/Time of Note DATE: 01/05/19 TIME: 12:13 Discharge Summary Admission/Discharge Info Admit Date/Time January 02, 2019 at 09:44 Discharge Date/Time Discharge Diagnosis gastric carcinoma Patient Condition: Stable Consults dr Rasheed, oncology, Dr Han, GI Procedures paracentesis. Hospital Course This is a 58-year-old male with a past medical history of cirrhosis and questionable abdominal/stomach cancer. According to the patient, he does not know where he goes for his treatment. He was diagnosed with some kind of cancer. The patient went to [facility] on 01/01 secondary to severe periumbilical pain and nausea and vomiting for the last 2 to 3 days. According to the patient, the patient vomited around 8 times and was unable to keep anything down. Denied any hematemesis, any melena, any bright red per rectum. Patient also had some mild cough for 2 days. Denies any shortness of breath. Patient has history of cirrhosis and has been frequently getting paracentesis for the last few weeks. The patient has no clue about his care and his medical treatment. Patient went to [facility]. There, the patient had a chest x-ray that showed right-sided infiltrate, no pneumothorax, no effusion. The patient also had a CT of the abdomen and pelvis that show multifocal areas of ground opacity, but nodularity in lung bases suspicious for bronchopneumonia or aspiration and also had diffusely nodular liver suggesting cirrhosis, probable gallbladder sludge. Patient had a large volume ascites, diffuse mesenteric edema secondary to portal hypertension in the setting of cirrhosis; however, there is a soft tissue nodularity appearance of omentum, raising the possibility of malignancy peritoneal carcinomatosis. Patient was found to have a white count of 15.4, hemoglobin 13.2, platelet count of 175, BUN and creatinine within normal limit. Albumin 2.3, AST 16, ALT 12. UA also showed 50 glucose, 5+ ketones, 11-20 wbcs, 11-20 rbcs. EKG shows sinus tachycardia. Patient was given vancomycin, Zosyn, morphine and Zofran and patient was transferred for the diagnosis of ascites and pneumonia and cystitis. PAST MEDICAL HISTORY: 1. Diabetes. 2. Hypertension. 3. Hyperlipidemia. 4. Cirrhosis. 5. Stomach cancer. Ds: 1. Abdominal pain, nausea, vomiting, questionable history of stomach cancer. Patient has no clue about his diagnosis. The patient is status post paracentesis. Patient had a CAT scan at [facility] that showed possibility of peritoneal carcinomatosis. hx of gastric carcinoma (adenocarcinoma 11/26/2018 mod. def adenocarcinoma) 2. Cirrhosis with abdominal distention and status post paracentesis. 3. Mild cough with chest x-ray evidence of right-sided pneumonia/bronchopneumonia. 4. Diabetes mellitus type II. 5. Hypertension. 6. Hypercholesterolemia. 7. Neuropathy. 8. Anemia During hospitalization pt was in med-surg, unit . Paracentesis was done for him and he was clinically improved. We continued antibiotics for his UTI and pneumonia with good effect We start full liquid diet for pt he tolerated well, he got diet advanced and reported no nausea, no vomiting. During NPO pt had IV fluids. He had pain control. we called GI consult dr Han, who does not recommend any procedures , approved GI proph. protonix and recommended dc planing for possible outpatient oncology treatment. Dr Rasheed was called fro oncology care and she recommended per pt insurance that is a Medicare and [employer], he can go for treatment to [facility] or choose his own oncology MD. Pt was ambulating before discharge, no oxygen was needed, pt reported minimal pain and was d/c home in stable condition. Home Meds Active Scripts Levofloxacin* (Levaquin*) 500 Mg Tablet, 500 MG PO DAILY for 7 Days, TAB Prov:JACKIE BANKS 01/05/19 Azithromycin* (Azithromycin*) 250 Mg Tablet, 250 MG PO DAILY, #4 TAB Prov:JACKIE BANKS 01/05/19 Metoclopramide* (Reglan*) 10 Mg/10 Ml Soln, 5 MG PO AC MEALS for 10 Days, #30 Prov:JACKIE BANKS 01/05/19 Lactulose* (Lactulose*) 20 Gm/30 Ml Solution, 20 GM PO DAILY for 14 Days, #14 1 Refill Prov:JACKIE BANKS 01/05/19 Azithromycin* (Zithromax*) 250 Mg Tablet, 250 MG PO .ZPACK DIRECTED, #6 TAB TAKE 500 MG (2 TABS) THE FIRST DAY THEN 250 MG (1 TAB) DAYS 2-5 Prov:GLEN SEVILLA MD 12/28/18 Pantoprazole* (Pantoprazole*) 40 Mg Tablet.dr, 40 MG PO BID@06,18 for 14 Days, #30 ok for OTC Prilosec instead. Prov:JANIE CARNEY MD 12/13/18 Discontinued Reported Medications Metformin Hcl* (Metformin Hcl*) 1,000 Mg Tablet, 1000 MG PO WITH BREAKFAST DINNE, #60 TAB 12/06/18 Follow-up Plan PCP 1 wek -oncology per pt choice for oncological treatment Primary Care Provider Time spent on discharge: < 30 minutes JACKIE BANKS January 05, 2019 12:14
[2019-01-05] MEDS ORDERED: LACT20SO2 PO (12:17)
[2019-01-05] MEDS ORDERED: AZIT250T13 PO (12:17)
[2019-01-05] MEDS ORDERED: UDREG PO (12:17)
[2019-01-05] MEDS ORDERED: LEVO500T48 PO (12:17)
[2019-01-05 14:24] VITALS: BP 121/84; PULSE 91; RESP 17
--- NOTE | 2019-01-05 16:05 | CONS ---
Assessment/Plan Assessment/Plan Assessment/Plan (Daily) IMPRESSION: 1. Stomach cancer status post chemo and radiation 3 years ago. He has lost follow up with his oncologist. During my last endoscopy positive biopsy for stomach cancer, I had strongly recommended to go back to the oncologist, but so far, patient has not gone. 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 3. Status post paracentesis, most probably related to malignancy given the peritoneal mets. 4. Diabetes mellitus. 5. History of gastroparesis. 6. Hypertension. 7. Hypercholesterolemia. Plan Advance diet Continue Reglan Oncology consult follow-up Consultation Date/Type/Reason Admit Date/Time January 02, 2019 at 09:44 Initial Consult Date 01/03/19 Requesting Provider: JACKIE BANKS Date/Time of Note DATE: 01/05/19 TIME: 16:04 24 HR Interval Summary Constitutional: no complaints, improved Exam/Review of Systems Exam Vitals Vital Signs Date Temp Pulse Resp B/P (MAP) Pulse Ox O2 O2 Flow FiO2 Time Delivery Rate 01/05/19 97.9 91 17 121/84 97 14:24 (96) 01/03/19 Room Air 01:58 Intake and Output 01/04/19 01/04/19 01/05/19 1515:00 23:00 07:00 IntakeIntake Total 250 ml 1160 ml 390 ml OutputOutput Total 50 ml BalanceBalance 200 ml 1160 ml 390 ml Constitutional: alert, oriented, well developed Psych: no complaints, nl mood/affect Head: normocephalic, atraumatic Eyes: nl conjunctiva, EOMI, nl lids, nl sclera, PERRL ENMT: nl external ears & nose, nl lips & teeth, nl nasal mucosa & septum Neck: supple, non-tender Respiratory: clear to auscultation, normal air movement Cardiovascular: regular rate and rhythm, nl pulses Gastrointestinal: soft, nl liver, spleen, non-tender Musculoskeletal: nl extremities to inspection, nl gait and stance Extremities: normal pulses Neurological: VP CARDIOVASCULAR SERVICE LINE II-XII intact, nl mental status, nl speech, nl strength Skin: nl turgor; No rash or lesions Lymph: nl lymph nodes Results Result Diagram: 01/04/19 0713 01/04/19 0713 Medications Medication Current Medications Sodium Chloride 1,000 ml @ 30 mls/hr Q24H IV Last administered on 01/05/19 00:15; Admin Dose 30 MLS/HR; Start 01/02/19 at 12:30 Ondansetron HCl (Zofran Inj) 4 mg Q6H PRN IV NAUSEA AND/OR VOMITING; Start 01/02/19 at 12:30 Pantoprazole (Protonix Iv) 40 mg DAILY@06 IV Last administered on 01/05/19 06:02; Admin Dose 40 MG; Start 01/03/19 at 06:00 Morphine Sulfate (morphine) 2 mg Q4H PRN IV SEVERE PAIN LEVEL 7-10 Last administered on 01/05/19 12:03; Admin Dose 2 MG; Start 01/02/19 at 12:30 Ceftriaxone Sodium 50 ml @ 100 mls/hr Q24H IVPB Last administered on 01/04/19 17:09; Admin Dose 100 MLS/HR; Start 01/02/19 at 17:00 Azithromycin 500 mg/Sodium Chloride 250 ml @ 250 mls/hr QAM IVPB Last administered on 01/05/19 08:43; Admin Dose 250 MLS/HR; Start 01/02/19 at 17:00 Metoclopramide HCl (Reglan) 10 mg Q6H PRN IV NAUSEA; Start 01/02/19 at 17:00 Metoclopramide HCl (Reglan) 10 mg Q6 IV Last administered on 01/05/19 12:02; Admin Dose 10 MG; Start 01/03/19 at 18:00 Enoxaparin Sodium (Lovenox) 40 mg DAILY SC Last administered on 01/05/19 08:43; Admin Dose 40 MG; Start 01/04/19 at 09:00 DEIDRE REYNOLDS MD January 05, 2019 16:05
[2019-01-05] MEDS: CEFTRIAXONE 1 GM/50 ML (PMX) 50 ML IVPB SCH (17:12)
[2019-01-05 19:55] VITALS: BP 144/88; PULSE 91; RESP 16
--- NOTE | 2019-01-05 21:57 | CONS ---
Assessment/Plan Assessment/Plan Hospital Course (Demo Recall) ASSESSMENT AND PLAN: This is a 58-year-old male presented with: Stomach cancer status post chemo and radiation 3 years ago. He has lost follow up with his oncologist. RE: DC HOME WITH OUTPT F-UP AT [facility] OR [facility] [place] Abdominal pain, nausea, vomiting, The patient is status post paracentesis. Patient had a CAT scan at [facility] that showed possibility of peritoneal carcinomatosis. 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 Status post paracentesis, most probably related to malignancy given the peritoneal mets. Diabetes mellitus. History of gastroparesis. Hypertension. Hypercholesterolemia. Hypercholesterolemia. Neuropathy. Consultation Date/Type/Reason Admit Date/Time January 02, 2019 at 09:44 Initial Consult Date 01/03/19 Type of Consult [facility] Requesting Provider: JACKIE BANKS Date/Time of Note DATE: 01/05/19 TIME: 21:56 24 HR Interval Summary Free Text/Dictation ALL NOTED NAD NO BLEEDING PAIN CONTROLLED Exam/Review of Systems Exam Vitals Vital Signs Date Temp Pulse Resp B/P (MAP) Pulse Ox O2 O2 Flow FiO2 Time Delivery Rate 01/05/19 98.6 91 16 144/88 97 19:55 (106) 01/03/19 Room Air 01:58 Intake and Output 01/04/19 01/04/19 01/05/19 1515:00 23:00 07:00 IntakeIntake Total 250 ml 1160 ml 390 ml OutputOutput Total 50 ml BalanceBalance 200 ml 1160 ml 390 ml Exam GENERAL: The patient is awake, alert, cachectic looking. NECK: Supple, no JVD. HEART: Slight tachycardia. LUNGS: Clear to auscultation bilaterally. ABDOMEN: Scaphoid abdomen, now status post paracentesis. EXTREMITIES: No clubbing, cyanosis, or edema. NEUROLOGIC: Nonfocal. Results Result Diagram: 01/04/19 0713 01/04/19 0713 Medications Medication Current Medications Sodium Chloride 1,000 ml @ 30 mls/hr Q24H IV Last administered on 01/05/19at 00:15; Admin Dose 30 MLS/HR; Start 01/02/19 at 12:30 Ondansetron HCl (Zofran Inj) 4 mg Q6H PRN IV NAUSEA AND/OR VOMITING; Start 01/02/19 at 12:30 Pantoprazole (Protonix Iv) 40 mg DAILY@06 IV Last administered on 01/05/19 06:02; Admin Dose 40 MG; Start 01/03/19 at 06:00 Morphine Sulfate (morphine) 2 mg Q4H PRN IV SEVERE PAIN LEVEL 7-10 Last admi nistered on 01/05/19 12:03; Admin Dose 2 MG; Start 01/02/19 at 12:30 Ceftriaxone Sodium 50 ml @ 100 mls/hr Q24H IVPB Last administered on 01/05/19 17:12; Admin Dose 100 MLS/HR; Start 01/02/19 at 17:00 Azithromycin 500 mg/Sodium Chloride 250 ml @ 250 mls/hr QAM IVPB Last administered on 01/05/19 08:43; Admin Dose 250 MLS/HR; Start 01/02/19 at 17:00 Metoclopramide HCl (Reglan) 10 mg Q6H PRN IV NAUSEA; Start 01/02/19 at 17:00 Metoclopramide HCl (Reglan) 10 mg Q6 IV Last administered on 01/05/19 17:12; Admin Dose 10 MG; Start 01/03/19 at 18:00 Enoxaparin Sodium (Lovenox) 40 mg DAILY SC Last administered on 01/05/19 08:43; Admin Dose 40 MG; Start 01/04/19 at 09:00 AMADA BENDER MD January 05, 2019 21:57
== END 2019-01-05 20:55 | disposition home or self-care (01) | DRG 374 ==
LOC: E/R 06:47 → 5EC 09:44 → MERGE 09:44 → 5EC 11:12
PROVIDERS: ADMIT Internal Medicine Nephrology; ATTEND Internal Medicine Nephrology
PROC: 0W9G3ZZ Drainage of Peritoneal Cavity, Percutaneous Approach (ICD-10-PCS; principal; 2019-01-02)
DX: C16.9 Malignant neoplasm of stomach, unspecified (principal); J18.0 Bronchopneumonia, unspecified organism; J18.9 Pneumonia, unspecified organism; C78.6 Secondary malignant neoplasm of retroperitoneum and peritoneum; K76.6 Portal hypertension; K70.31 Alcoholic cirrhosis of liver with ascites; E78.00 Pure hypercholesterolemia, unspecified; D64.9 Anemia, unspecified; I10 Essential (primary) hypertension; E11.40 Type 2 diabetes mellitus with diabetic neuropathy, unspecified; Z85.028 Personal history of other malignant neoplasm of stomach; Z92.3 Personal history of irradiation; Z92.21 Personal history of antineoplastic chemotherapy
CPT/HCPCS: 36415; 71045; 80048; 80053; 81001; 83690; 85025; 85610; 85730; 87070; 87081; 87102; 87116; 89051; C9113; J0456; J0696; J1650; J2270; J2765; J7030; J7050

== ENCOUNTER 2019-01-14 11:29 | Emergency (ER) | payer MEDICARE, OTHER ==
[~2019-01-14] VITALS: Wt 58.7 kg
[~2019-01-14 11:29] MED LIST changes: +AZIT250T13 PO; +LEVO500T48 PO; -METF100010 PO
--- NOTE | 2019-01-14 12:21 | ERD ---
ER Documentation Chief Complaint Chief Complaint HERE FOR PARACENTHESIS HPI The patient is a 58-year-old male, presenting to the ER for abdominal paracentesis due to distention. He normally has paracentesis every 2 weeks. He denies fever, chills, neck pain, chest pain, dyspnea, vomiting, dysuria, diarrhea. He does not smoke nor drink Past medical history: Hypertension, dyslipidemia, history of palpitation, gastric carcinoma, cirrhosis, diabetes mellitus ROS All systems reviewed and are negative except as per history of present illness. Medications Home Meds Active Scripts Levofloxacin* (Levaquin*) 500 Mg Tablet, 500 MG PO DAILY for 7 Days, TAB Prov:ZENTSEVAJACKIE 01/05/19 Azithromycin* (Azithromycin*) 250 Mg Tablet, 250 MG PO DAILY, #4 TAB Prov:ZENJACKIE JOHNSON 01/05/19 Metoclopramide* (Reglan*) 10 Mg/10 Ml Soln, 5 MG PO AC MEALS for 10 Days, #30 Prov:JACKIE BANKS 01/05/19 Lactulose* (Lactulose*) 20 Gm/30 Ml Solution, 20 GM PO DAILY for 14 Days, #14 1 Refill Prov:SHAILAEVJACKIE Wynn 01/05/19 Azithromycin* (Zithromax*) 250 Mg Tablet, 250 MG PO .ZPACK DIRECTED, #6 TAB TAKE 500 MG (2 TABS) THE FIRST DAY THEN 250 MG (1 TAB) DAYS 2-5 Prov:GLEN SEVILLA MD 12/28/18 Pantoprazole* (Pantoprazole*) 40 Mg Tablet.dr, 40 MG PO BID@06,18 for 14 Days, #30 ok for OTC Prilosec instead. Prov:JANIE CARNEY MD 12/13/18 Allergies Allergies: Coded Allergies: No Known Allergy (Unverified , 12/28/18) PMhx/Soc History of Surgery: Yes (PORT A CATH PLACEMENT) Anesthesia Reaction: No Hx Neurological Disorder: No Hx Respiratory Disorders: No Hx Cardiac Disorders: Yes (HTN, HYPERLIPIDEMIA.RAPID HEART RATE) Hx Psychiatric Problems: No Hx Alcohol Use: No Hx Substance Use: No Hx Tobacco Use: No Smoking Status: Never smoker Physical Exam Vitals Vital Signs Date Temp Pulse Resp B/P (MAP) Pulse Ox O2 O2 Flow FiO2 Time Delivery Rate 5/14/19 99.3 105 16 121/87 97 Room Air 13:56 (98) 01/14/19 98.6 127 18 133/93 99 11:33 (106) Physical Exam Const: No acute distress. Head: Atraumatic. Eyes: Normal Conjunctiva. ENT: Normal External Ears, Nose and Mouth. Neck: Full range of motion. No meningismus. Resp: Clear to auscultation bilaterally. Cardio: Regular rate and rhythm. Abd: Soft, mild ascites, normal bowel sounds, non tender. Skin: No petechiae or rashes. Back: No midline or flank tenderness. Ext: No cyanosis, or edema. Neur: Awake and alert. No focal deficit Psych: Normal Mood and Affect. Procedures/MDM EKG: Read by emergency physician Rate/Rhythm: Sinus tachycardia 105 beats/min QRS, ST, T-waves: No ST elevation, no T inversion Impression: Abnormal EKG MEDICAL MAKING DECISION: The patient is a 58-year-old male, presenting with mild ascites. He will have abdominal paracentesis by interventional radiologist The differential diagnoses considered include but are not limited to SBP, cholelithiasis, cholecystitis, choledocholithiasis, cholangitis, pancreatitis, hepatitis, gastritis, peptic ulcer disease, gastric ulcer, appendicitis, cystitis, diverticulitis, partial small bowel obstruction. Departure Diagnosis: Primary Impression: Ascites Condition: Good Comments He will be discharged after paracentesis TIO TORIBIO MD January 14, 2019 12:21
[2019-01-14] MEDS ORDERED: LIDOCAINE 1% (MPF) 5 ML VIAL ONE (15:11)
[2019-01-14] MEDS ORDERED: HYDR-4011 PO (15:14)
[2019-01-14 15:33] VITALS: BP 122/87; PULSE 97; RESP 16
--- NOTE | 2019-01-17 14:50 | RADRPT ---
Vent Rate: 105 bpm RR Interval: 0 msec [place] Interval: 142 msec QRS Duration: 88 msec QT Interval: 338 msec QTC Interval: 446 msec P-R-T [place]: 49 - 75 - 48 degrees Sinus tachycardia Otherwise normal ECG Electronically Signed By: [facility]
== END 2019-01-14 15:34 | disposition home or self-care (01) ==
LOC: E/R 11:29
DX: R18.8 Other ascites (principal); I10 Essential (primary) hypertension; E11.9 Type 2 diabetes mellitus without complications
CPT/HCPCS: 93005